=== PATIENT | male | born 1945 | race Caucasian/White ===

== ENCOUNTER 2016-09-23 14:52 | Inpatient (IN) ==
[2016-09-23] MEDS ORDERED: 0.9 % Sodium Chloride 500 ML IVC ONE (15:13)
--- NOTE | 2016-09-23 15:13 | Emergency Department Note ---
Disposition Clinical Impression: Pneumonia Disposition: Admitted As Inpatient Condition: Good Time of Disposition: 18:01 General Adult HPI - General Chief complaint: ED Fall Stated complaint: fall, dizziness Time Seen by Provider: 09/23/16 14:57 Nursing Notes Reviewed: Yes Vital Signs Reviewed: Yes - History of Present Illness HPI Narrative: Patient has a over 2 day history of diarrhea. He described it as a loose brown stool. The states that it is more foul-smelling than normal. He was on antibiotics in July for pneumonia. He stood up from a chair today and fell to the floor. He fell onto carpet. Did not strike anything when he fell. Did not loose consciousness. Patient has no complaints at this time. [facility] 0.22. - Related Data Home Medications Medication Instructions Recorded Confirmed Acetaminophen [Tylenol] 325 mg PO Q6HR PRN 09/23/16 09/23/16 Albuterol Sulfate [Albuterol 2 puff IH Q4H PRN 09/23/16 09/23/16 Inhaler] Atorvastatin Calcium [Lipitor] 20 mg PO HS 09/23/16 09/23/16 Budesonide/Formoterol 160/4.5 2 puff IH BIDR 09/23/16 09/23/16 [Symbicort 160/4.5] Cetirizine HCl [All Day Allergy] 10 mg PO HS 09/23/16 09/23/16 Docusate [Colace] 200 mg PO DAILY 09/23/16 09/23/16 Epoetin Nathanael [Epogen] 6,000 unit IJ QWEEK 09/23/16 09/23/16 Ferrous Sulfate 325 mg PO DAILY 09/23/16 09/23/16 Finasteride [Proscar] 5 mg PO DAILY 09/23/16 09/23/16 Fluticasone Propionate Nasal 50 mcg NS DAILY 09/23/16 09/23/16 [Flonase] GlipiZIDE [Glucotrol] 5 mg PO DAILY 09/23/16 09/23/16 GuaiFENesin/Dextromethorphan 10 ml PO Q4H PRN 09/23/16 09/23/16 [Robitussin/DM] Guaifenesin [Mucus Relief] 400 mg PO Q12H 09/23/16 09/23/16 Ipratropium/Albuterol Neb [Duoneb] 3 ml IH Q6H PRN 09/23/16 09/23/16 Magnesium Hydroxide [Milk of 1,200 mg PO DAILY PRN 09/23/16 09/23/16 Magnesia] Naproxen [Naprosyn] 500 mg PO BID 09/23/16 09/23/16 Saxagliptin HCl [Onglyza] 2.5 mg PO DAILY 09/23/16 09/23/16 Spironolactone [Aldactone] 12.5 mg PO DAILY 09/23/16 09/23/16 Trospium Chloride 20 mg PO BID 09/23/16 09/23/16 Allergies Allergy/AdvReac Type Severity Reaction Status Date / Time gabapentin Allergy See Verified 09/23/16 15:04 Comments mushroom Allergy See Verified 09/23/16 15:04 Comments pregabalin Allergy See Verified 09/23/16 15:04 Comments Review of Systems: Patient denies any fevers or chills. He denies any recent illnesses. He does report antibiotic use 1 month ago for pneumonia. He denies any shortness of breath or chest pain at this time. He denies any nausea or vomiting. He does report a two-day history of a loose brown stool. He denies any abdominal pain. Denies any neck or back pain. He denies any pain to his extremities. He states that he does feel weak still. He reports a decrease in his by mouth intake. Diarrhea. All systems ED: reviewed and negative except as stated. Physical Exam - General Limitations: no limitations General appearance: alert, in no apparent distress - Head Head exam: atraumatic, normocephalic, normal inspection - Eye Eye exam: Present: normal appearance, PERRL, EOMI. Absent: scleral icterus - ENT ENT exam: normal exam, normal oropharynx, mucous membranes moist - Neck Neck exam: Present: normal inspection, full ROM, trachea midline. Absent: tenderness, lymphadenopathy - Chest Chest inspection: Present: normal inspection, symmetric chest wall rise - Respiratory Respiratory exam: Present: respiratory distress (Patient states this is chronic for him), wheezes (Diffusely), accessory muscle use - Cardiovascular Cardiovascular exam: Present: regular rate, normal rhythm, normal heart sounds - Abdominal Exam Abdominal exam: Present: soft, Non-Tender, normal bowel sounds. Absent: tenderness, distention, guarding, rebound, rigidity, organomegaly, Fam's sign , tenderness at McBurney's Point - Extremities Exam Extremities exam: Present: normal inspection, full ROM, normal capillary refill. Absent: tenderness, pedal edema - Back Exam Back exam: Present: normal inspection, full ROM. Absent: tenderness, CVA tenderness (R), CVA tenderness (L) - Neurological Exam Neurological exam: Present: alert, oriented X3 - Psychiatric Psychiatric exam: Present: normal affect, normal mood - Skin Skin exam: Present: warm, dry, intact, normal color Course Course Narrative: Patient being sent to the emergency department from the [place] for an increased troponin and syncope. He has had diarrhea for approximately 3 days was sitting in a chair stood up and syncopized. He fell onto carpet. states that he was unresponsive for a very few seconds. He does have an abrasion to his left forehead. He denies any pain at this time. He denies any weakness or headaches. He does report a shortness of breath that is chronic for him. He also has a cough. His abdomen is soft and nontender on palpation. His bowel sounds are normal. He does wear oxygen all the time. He does wear BiPAP at home. We will order basic labs and a chest x-ray on the patient. [facility] - Reevaluation(s) Reevaluation #1: Patient resting in bed. Patient lungs sounds or wheezing bilaterally. He is having some mild shortness of breath. Chest x-ray correlates with patient's symptoms of pneumonia. We will start IV Zosyn and levofloxacin. Time: 15:48 Reevaluation #2: Prior sepsis guidelines patient is going to receive a 2 L fluid bolus. He received 500 mL of this at the [facility] he got 500 initially we will order an additional 1 L at this time. He does have CHF so we will stop after 2 L. Patient does have pneumonia. We will admit patient for IV antibiotics. Patient 's creatinine is increased as well. Time: 16:26 - Consultations Consultation #1: Randa Weaver MATERIALS CLERK accepted Pt in stable condition. Vital Signs Temperature 98.1 F 09/23/16 14:55 Pulse Rate 111 09/23/16 14:55 Respiratory Rate 18 09/23/16 14:55 Blood Pressure 135/87 09/23/16 14:55 O2 Sat by Pulse Oximetry 100 09/23/16 14:55 Temperature 98.1 F 09/23/16 14:55 Pulse Rate 96 09/23/16 17:22 Respiratory Rate 22 09/23/16 17:44 Blood Pressure 99/58 09/23/16 17:44 O2 Sat by Pulse Oximetry 94 L 09/23/16 17:22 Oxygen Delivery Oxygen Delivery Nasal Cannula Medical Decision Making - Medical Records Medical records reviewed: Yes I reviewed the patient's medical records. - Lab Data Result diagrams: 09/23/16 16:21 09/23/16 16:19 Lab Results 09/23/16 09/23/16 09/23/16 Range/Units 16:19 16:21 16:21 WBC 11.2 H (4.3-11.1) K/mcL RBC 2.93 L (4.19-5.50) M/mcL Hgb 8.0 L (12.9-16.9) g/dL Hct 27.3 L (37.5-50.1) % MCV 93.2 (83.0-100.0) fL MCH 27.3 L (28.0-33.3) pg MCHC 29.3 L (31.6-35.5) g/dL RDW 17.1 H (11.5-14.5) % Plt Count 172 (140-400) K/mcL MPV 10.7 (9.4-12.4) fL Seg Neutrophils % 42.0 % Band Neutrophils % 24.0 H (0-4) % Lymphocytes % 8.0 % Monocytes % 10.0 % Basophils % 4.0 % Metamyelocytes % 4.0 H (0) % Myelocytes % 8.0 H (0) % Neutrophils # 7.4 (1.6-8.9) K/mcL Lymphocytes # 0.9 (0.6-4.6) K/mcL Monocytes # 1.1 (0.0-1.3) K/mcL Basophils # 0.5 H (0.0-0.2) K/mcL Toxic Vacuolation Present A (Not Present) Platelet Estimate Normal (Normal) Immature Plt Fraction 6.1 (1.1-6.1) % Hypochromasia Present A (Not Present) Sodium 139 (136-145) mEq/L Potassium 4.8 H (3.5-4.5) mEq/L Chloride 103 (98-109) mEq/L Carbon Dioxide 27 (19-29) mEq/L BUN 23 (8-26) mg/dL Creatinine 1.65 H (0.72-1.25) mg/dL Est GFR ( Amer) 50 L (> 60) Est GFR (Non-Af Amer) 41 L (> 60) BUN/Creatinine Ratio 14 (6-26) Glucose 112 H (70-99) mg/dL Calculated Osmolality 292 (280-300) Lactic Acid 0.9 (0.5-2.2) mmol/L Calcium 8.7 (8.6-10.8) mg/dL Total Bilirubin 0.3 (0.2-1.2) mg/dL AST 12 (5-34) Units/L ALT 6 (0-55) Units/L Alkaline Phosphatase 75 (38-126) Units/L Serum Total Protein 7.1 (6.0-8.3) g/dL Albumin 2.5 L (3.5-5.0) g/dL Globulin 4.6 H (2.4-3.5) g/dL Albumin/Globulin Ratio 0.5 L (1.1-2.2) - Radiology Data Radiology results reviewed: Yes I reviewed the patient's radiology results. I reviewed the images as well as the radiologist's report. - EKG Data EKG #1 EKG attestation: Yes I reviewed and interpreted this EKG. EKG results narrative: Normal sinus rhythm at a rate of 98. MI interval is 144. QRS duration is 96. QT is 356. QTC is 411. No signs of acute ischemia. No previous EKG to compare to. Attestation Statement - Attestation Attestation: I examined this patient and my medical decision-making was reviewed with the TURNER MACHINE OPERATOR/PA/Advanced Practice Nurse/Resident Physician. I agree with the documented findings, disposition and treatment plan as described except to the extent set forth below. Patient to the emergency department as a transfer from the [facility]. Patient was seen after a fall today. Complaining ofpain. States has been weak and having diarrhea. No diarrhea today. On examination is awake and alert. It does not swelling to the bridge of his nose. Abrasion to the forehead. Lungs with diffuse expiratory wheezing. Moves all extremities. Plan. The patient elevated troponin. Possible infiltrate on chest x-ray. He has had a recent hospital admission. He is wheezing and coughing. We will cover for hospital-acquired pneumonia and admitted to medicine. C. difficile ordered as he has been on recent antibiotics however he has not produced a sample for us.
[2016-09-23] MEDS ORDERED: Ipratropium/Albuterol Neb 3 ML IH ONE (15:18)
[2016-09-23] MEDS ORDERED: Piperacillin/Tazobactam 4.5 GM in D5% in Water (Mini-Bag+) 100 ML IVPB ONE (15:46)
[2016-09-23] MEDS ORDERED: Levofloxacin 750 MG/150 ML 750 MG/150 ML BAG IVPB ONE (15:47)
[2016-09-23] MEDS ORDERED: 0.9 % Sodium Chloride 1,000 ML IVC ONE (16:24)
[2016-09-23 16:32] LABS: Red Cell Distribution Width 17.1 % (11.5-14.5)
[2016-09-23 16:35] LABS: Hematocrit 27.3 % (37.5-50.1); Immature Platelets 6.1 % (1.1-6.1); Mean Corpuscular HGB Conc 29.3 g/dL (31.6-35.5); Mean Corpuscular Hemoglobin 27.3 pg (28.0-33.3); Mean Corpuscular Volume 93.2 fL (83.0-100.0); Mean Platelet Volume 10.7 fL (9.4-12.4); Platelet Count 172 K/mcL (140-400); Red Blood Count 2.93 M/mcL (4.19-5.50)
[2016-09-23 16:47] LABS: Albumin 2.5 g/dL (3.5-5.0); Albumin/Globulin Ratio 0.5 (1.1-2.2); Bilirubin,Total 0.3 mg/dL (0.2-1.2); Calcium 8.7 mg/dL (8.6-10.8); Globulin 4.6 g/dL (2.4-3.5); Potassium 4.8 mEq/L (3.5-4.5); Total Protein 7.1 g/dL (6.0-8.3)
[2016-09-23 17:00] LABS: Basophils # 0.5 K/mcL (0.0-0.2); Hypochromasia Present (Not Present); Lymphocytes # 0.9 K/mcL (0.6-4.6); Monocytes # 1.1 K/mcL (0.0-1.3); Neutrophils # 7.4 K/mcL (1.6-8.9); Platelet Estimate Normal (Normal); Toxic Vacuolation Present (Not Present)
--- NOTE | 2016-09-23 21:02 | Internal Med History&Physical ---
Date of Encounter: 09/24/16 Time of Encounter: 20:55 Assessment and Plan (1) Syncope Current visit: Yes Status: Acute Patient presents after a syncopal event at home when standing from chair. He has an abrasion on his left forehead and bruising on arms. Etiology of syncopal event is unknown. This could be secondary to vasovagal response, hypotension. It could also be related to his elevated troponin and shortness of breath - possible PE. Will monitor vital signs and move forward with investigating his syncopal event. Qualifiers: Syncope type: unspecified Qualified Code(s): R55 - Syncope and collapse (2) Shortness of breath Current visit: Yes Status: Acute Patient with history of COPD on 4L home O2 and BiPAP at night. Patient reports that his shortness of breath has been getting worse - to the point he reports he is having to choose between eating and breathing. Do not believe that this is due to a pneumonia. Patient has chronic lung disease on CXR. He remains afebrile with very minimally elevated WBC. Will hold on antibiotics at this time. With patient's syncopal event, room air hypoxia, elevated troponins, HR> 90 and RR 20-22, there is concern for a possible PE. Due to patient's chronic lung history, he is unable to have a V/Q scan. Patient has an elevated creatinine, reportable a new development and as such cannot have a CTA chest tonight. Will start heparin drip and work towards optamizing patient medically for a CTA. 1. Start heparin drip 2. BL LE venous dopplar ultrasound. 3. Lab: CRP 4. Will order duoneb breathing treatments QIDR 5. Continuous pulse ox and supplemental oxygen as needed - he does use 4L at home 6. BiPAP at night. 7. Consult placed to pulmonology (3) Elevated troponin Current visit: Yes Status: Acute Patient with elevated troponin of 0.55. There are no old troponin labs in our system. He reports that he has never had a heart attack. He reports a stress test a long time ago but has never had a LHC. EKG showed normal sinus rhythm with non-specific T wave changes, no ST segment elevation. The differential for the elevated troponin includes PE and NSTEMI. Will trend troponins and place patient on a heparin drip. Patient may require stress test at a future date. 1. Trend troponins every 6 hours 2. Heparin drip. Monitor PT/PTT per protocol 3. Consult place to cardiology for further recommendations. 4. ECHO (4) JONAH (acute kidney injury) Current visit: Yes Status: Acute Patient denies any history of kidney disease. Creatinine 1.65 today. Will encourage PO fluids and trend kidney function. 1. Trend creatinine 2. PO fluids. 3. Avoid nephrotoxic drugs if possible. (5) Diarrhea Current visit: Yes Status: Acute Patient reports 3 days of diarrhea. He does reports a history of antibiotic use back in July. Initially a c.diff test was ordered however patient has been unable to produce a sample. Believe the c. diff is not likely. Patient was on medications to help with constipation, will hold medicaitons until resolution of diarrhea. Will monitor electrolytes and encourage PO fluid intake. Qualifiers: Diarrhea type: unspecified type Qualified Code(s): R19.7 - Diarrhea, unspecified (6) Hyperkalemia Current visit: Yes Status: Acute Patient with hypercalemia likely related to JONAH. He is not currently having any EKG changes. Will monitor potassium. 1. BMP tomorrow (7) Anemia Current visit: Yes Status: Acute Patient with hemoglobin of 8.0. He has a history of anemia and takes Epogen and Iron at home. 1. Trend hemoglobin 2. Consider iron studies, B12, and folate. Qualifiers: Anemia type: unspecified type Qualified Code(s): D64.9 - Anemia, unspecified (8) Type 2 diabetes mellitus Current visit: Yes Status: Acute Patient with history of T2DM on saxagliptin and glipizide at home. Glucose on admission was 112 1. Diabetic diet 2. Will continue home dose of saxagliptin and glipizide. 3. Will check glucose ACHS 4. Sliding scale insulin Qualifiers: Diabetes mellitus complication status: without complication Diabetes mellitus terminal worker insulin use: without terminal worker use Qualified Code(s): E11.9 - Type 2 diabetes mellitus without complications (9) CHF (congestive heart failure) Current visit: Yes Status: Acute Patient reports history of CHF. No documentation of a previous ECHO. With patient's elevated troponins, will obtain and new ECHO for evaluation. 1. ECHO 2. Monitor I/O 3. Daily weights. Qualifiers: Congestive heart failure type: unspecified congestive heart failure type Congestive heart failure chronicity: unspecified congestive heart failure chronicity Qualified Code(s): I50.9 - Heart failure, unspecified (10) COPD (chronic obstructive pulmonary disease) Current visit: Yes Status: Acute Patient with history of COPD, does not appear to be a current exacerbation. Patient does use 4L O2 during the day and BiPAP at night. 1. Continuous oxygenation saturation monitoring and supplemental O2 as needed. 2. Consult to respiratory therapy for BiPAP 3. Duonebs QIDR 4. Continue symbicort. Qualifiers: COPD type: unspecified COPD Qualified Code(s): J44.9 - Chronic obstructive pulmonary disease, unspecified (11) BPH (benign prostatic hyperplasia) Current visit: Yes Status: Acute Patient with history of BPH. He reports that he wears a condom cath at home. 1. Continue proscar Qualifiers: Prostatic enlargement morphology: unspecified morphology Lower urinary tract symptom presence: symptoms present Qualified Code(s): N40.1 - Benign prostatic hyperplasia with lower urinary tract symptoms (12) DVT prophylaxis Current visit: Yes Status: Acute Patient is currently on a heparin drip. Internal Medicine - H&P: HPI Chief complaint: Syncopal episode, SOB, diarrhea Admitted From: Home Plans for Post Hospital Care: Home History of present illness: Mr. Leiva is a 71 year old male with PMH of COPD on home O2, CHF, T2DM, anemia, CHF, and BPH who presents after a fall at home. Patient reports that today he stook up from a chair and "passed out." He states that he "blacked out for a little bit." He reports that he hit his head. Patient presented to the [facility] for evaluation with abrasion to his left forehead and multiple bruises. There he was found to have elevated trops and transferred to [facility] for futher evaluation. Patient reports that he has had fowl-smelling diarrhea for the past 2-3 days however none today. He reports that he was in the hospital back in July for pneumonia and had antibiotics at that time. He denies associated nausea/vomiting, abdominal pain or blood in his stool. Patient also reports shortness of breath. He has a history of COPD on 4L home O2 as well as BiPAP at night. He reports that his breathing has been getting worse. Patient states that he would be unable to walk to the bathroom door in his room with out shortness of breath and he has shortness of breath with conversation. He states that he has been eating less because he has to "choose between breathing and eating." CXR in the ED showed bibasilar interstitial lung disease with some asymmetry in the right lung base. Patient reports associated fever, chills , chronic nonproductive cough, and generalized weakness. He denies headache, vision changes, chest pain or pressures, abdominal pain. He denies any pain in his legs, any erythema or warmth. In our ED patient was afebrile with HR in the 90s, RR 20-22, and blood pressure around 100/60. He had an oxygenation saturation of 91% on 2L. Due to the elevated HR and RR, patient was given 2L fluids per protocol. He was given one duoneb treatment. ED was concerned that the asymmetry in the right lung base might be a pneumonia. Blood cultures drawn and he was given a dose of levaquin and zosyn. Patient has a WBC of 11.2, Hgb of 8.0. Hyperkalemia at 4.8. Troponin elevated at 0.55. On exam, patient awake and oriented, states he is frustrated and doesn't want to be here. He has an abrasion on his left forehead and bruising up and down BL arms. The bridge of his nose is slightly swollen. Pupils equal and reactive. Lungs with maybe fine wheezes on the right, some diminished air movement BL. Heart regular rate and rhythm. Abdomen soft, non-tender. No pedal edema noted. Past Med Surg Social Fam HX - Past Medical History Medical history: COPD, dementia, diabetes Psychiatric history: depression, PTSD - Social History Smoking Status: Never smoker Alcohol use: none Drug use: none - Family History Mother Hx Family Endocrine Disorder: Yes (daibetes) Father Hx Family Cardiac Disorders: Yes (heart attack) Internal Medicine - H&P: Meds Acetaminophen [Tylenol] 325 mg PO Q6HR PRN 09/23/16 [History] Albuterol Sulfate [Albuterol Inhaler] 2 puff IH Q4H PRN 09/23/16 [History] Atorvastatin Calcium [Lipitor] 20 mg PO HS 09/23/16 [History] Budesonide/Formoterol 160/4.5 [Symbicort 160/4.5] 2 puff IH BIDR 09/23/16 [ History] Cetirizine HCl [All Day Allergy] 10 mg PO HS 09/23/16 [History] Docusate [Colace] 200 mg PO DAILY 09/23/16 [History] Epoetin Nathanael [Epogen] 6,000 unit IJ QWEEK 09/23/16 [History] Ferrous Sulfate 325 mg PO DAILY 09/23/16 [History] Finasteride [Proscar] 5 mg PO DAILY 09/23/16 [History] Fluticasone Propionate Nasal [Flonase] 50 mcg NS DAILY 09/23/16 [History] GlipiZIDE [Glucotrol] 5 mg PO DAILY 09/23/16 [History] GuaiFENesin/Dextromethorphan [Robitussin/DM] 10 ml PO Q4H PRN 09/23/16 [History] Guaifenesin [Mucus Relief] 400 mg PO Q12H 09/23/16 [History] Ipratropium/Albuterol Neb [Duoneb] 3 ml IH Q6H PRN 09/23/16 [History] Magnesium Hydroxide [Milk of Magnesia] 1,200 mg PO DAILY PRN 09/23/16 [History] Naproxen [Naprosyn] 500 mg PO BID 09/23/16 [History] Saxagliptin HCl [Onglyza] 2.5 mg PO DAILY 09/23/16 [History] Spironolactone [Aldactone] 12.5 mg PO DAILY 09/23/16 [History] Trospium Chloride 20 mg PO BID 09/23/16 [History] Allergies gabapentin Allergy (Verified 09/23/16 15:04) See Comments mushroom Allergy (Verified 09/23/16 15:04) See Comments pregabalin Allergy (Verified 09/23/16 15:04) See Comments All Systems PM: A 10-system review of systems was performed and is negative for pertinent findings except as documented above in the HPI. - Constitutional Constitutional: chills, fever(s), weakness - EENT Eyes: no blurry vision, no change in vision Nose, mouth and throat: facial pain - Cardiovascular Cardiovascular ROS IM: dyspnea, dyspnea on exertion, syncope, no chest pain, no edema, no palpitations - Respiratory Respiratory: cough, dyspnea, dyspnea on exertion, wheezing, no hemoptysis, no chest congestion, no pain with cough - Gastrointestinal Gastrointestinal: abdominal pain, diarrhea, no constipation, no heartburn, no hematochezia, no melena, no nausea, no vomiting - Genitourinary Genitourinary ROS male: urinary hesitancy, urinary urgency, no dysuria - Integumentary Additional comments: abrasion over left forehead, bruising up and down arms - Neurological Neurological ROS: no confusion, no headache(s), no loss of vision - Constitutional Vitals: Temp Pulse Resp BP Pulse Ox 97.9 F 94 20 100/61 91 L 09/23/16 18:52 09/23/16 18:52 09/23/16 18:52 09/23/16 18:52 09/23/16 18:52 General appearance: Present: A&O X 3, no acute distress, answers questions appropriately - Head Head exam: Present: normal inspection, normocephalic Additional comments: abrasion over left forehead - Eye Eye exam: Present: EOMI, normal appearance, PERRL - ENT ENT exam: Present: mucous membranes moist - Respiratory Respiratory exam: Present: decreased breath sounds, wheezes. Absent: chest wall tenderness, prolonged expiratory phase, respiratory distress - Cardiovascular Cardiovascular exam: Present: RRR. Absent: clicks, gallop, rubs, systolic murmur - GI/Abdominal GI/Abdominal exam: Present: soft. Absent: guarding, rebound, rigid, tenderness - Extremities Exam Extremities exam: Absent: pedal edema Additional comments: bruising on BL arms - Neurological Exam Neurological exam: Present: alert, CN II-XII intact, oriented X3. Absent: no focal deficits - Skin Skin exam: Present: abrasion Internal Med - H&P Results - Labs CBC & Chem 7: 09/24/16 01:07 09/24/16 01:07
[2016-09-23] MEDS ORDERED: Acetaminophen 325 MG TABLET PO PRN (21:33)
[2016-09-23] MEDS ORDERED: Ondansetron ODT 4 MG TAB.RAPDIS SL PRN (21:33)
[2016-09-23] MEDS ORDERED: Naloxone 0.4 MG/ML INJ IVP PRN (21:33)
[2016-09-23] MEDS ORDERED: *HR* Heparin 5,000 UNIT/ML VIAL IVP ONE (21:50)
[2016-09-23] MEDS ORDERED: *HR* Heparin 5,000 UNIT/ML VIAL IVP PRN ×2 (21:50)
[2016-09-23] MEDS ORDERED: Heparin 25,000 UNIT/500 ML D5W 25,000 UNIT/500 ML MLS IVC SCH (22:00)
[2016-09-23] MEDS ORDERED: EPOETIN ALFA IJ SCH (22:00)
[2016-09-23] MEDS: Budesonide/Formoterol 160/4.5 MDI IH SCH (23:43)
[2016-09-23] MEDS ORDERED: D5% in Water 1,000 ML IV PRN (23:50)
[2016-09-23] MEDS ORDERED: Dextrose Gel 15 GM PO PRN ×2 (23:50)
[2016-09-23] MEDS ORDERED: *HR* Dextrose 50 % in Water (Syg) 50 ML SYRINGE IVP PRN (23:50)
[2016-09-24] MEDS ORDERED: Ipratropium/Albuterol Neb 3 ML IH SCH
[2016-09-24] MEDS: GuaiFENesin Liq 200 MG/10 ML UDC PO SCH ×3 (00:15→21:27)
[2016-09-24 02:06] LABS: Hematocrit 26.9 % (37.5-50.1); Hemoglobin 7.8 g/dL (12.9-16.9); Mean Corpuscular Hemoglobin 27.5 pg (28.0-33.3); Mean Corpuscular Volume 94.7 fL (83.0-100.0); Mean Platelet Volume 11.2 fL (9.4-12.4); Platelet Count 134 K/mcL (140-400); Red Blood Count 2.84 M/mcL (4.19-5.50); Red Cell Distribution Width 16.9 % (11.5-14.5)
[2016-09-24 02:08] LABS: INR 1.3; Prothrombin Time 14.1 Seconds (9.4-12.1)
[2016-09-24 02:11] LABS: Activated Partial Thrombo Time 28.5 Seconds (26.0-36.0)
[2016-09-24 02:14] LABS: Calcium 8.4 mg/dL (8.6-10.8); Chol/HDL Ratio 4.2 (0-4.9); Potassium 4.9 mEq/L (3.5-4.5)
[2016-09-24 02:30] LABS: Lymphocytes # 0.5 K/mcL (0.6-4.6); Monocytes # 0.2 K/mcL (0.0-1.3); Neutrophils # 4.4 K/mcL (1.6-8.9)
[2016-09-24 02:31] LABS: Hypochromasia Present (Not Present); Large Platelets Present (Not Present); Microcytosis Present (Not Present); Platelet Estimate Slight Decrease (Normal)
[2016-09-24 02:32] LABS: Polychromasia 1+ (Not Present)
[2016-09-24 02:37] LABS: Thyroid Stimulating Hormone 0.545 mcIU/mL (0.350-4.840)
[2016-09-24] MEDS: Ipratropium/Albuterol Neb 3 ML IH SCH ×4 (04:52→23:10)
[2016-09-24] MEDS ORDERED: Insulin LISPRO 300 UNITS/3 ML VIAL SQ SCH ×2 (07:30→21:00)
[2016-09-24] MEDS: Finasteride 5 MG TABLET PO SCH (08:47)
[2016-09-24] MEDS: Fluticasone Propionate Nasal 50 MCG/SPRAY BOTTLE NS SCH (08:48)
[2016-09-24] MEDS ORDERED: *HR* GlipiZIDE 5 MG TABLET PO SCH (09:00)
[2016-09-24] MEDS ORDERED: (Saxagliptin Hcl [Onglyza] 2.5 MG) PO SCH (09:00)
[2016-09-24] MEDS ORDERED: Spironolactone 25 MG TABLET PO SCH (09:00)
--- NOTE | 2016-09-24 09:14 | Internal Med Progress Note ---
Date of Encounter: 09/24/16 Time of Encounter: 08:50 - Assessment and plan (1) Syncope Current Visit: Yes Status: Acute Assessment and plan: Improving. No further episodes of dizziness or syncope. No abnormal rhythms on telemetry noted. Awaiting 2-D echo. Continue telemetry monitoring. We will follow results of 2-D echo. Qualifiers: Syncope type: vasovagal syncope Qualified Code(s): R55 - Syncope and collapse (2) Chronic respiratory failure with hypoxia Current Visit: Yes Status: Acute Assessment and plan: Continue O2 supplementation and BiPAP use at night. (3) JONAH (acute kidney injury) Current Visit: Yes Status: Acute Assessment and plan: Creatinine remained stable despite IV hydration. Given history of diabetes, patient may have chronic kidney disease. Will obtain records from [place]. (4) Anemia Current Visit: Yes Status: Acute Assessment and plan: Hemoglobin 7.8. May have chronic anemia. Will check iron, folic acid and vitamin B12 levels. Qualifiers: Anemia type: unspecified type Qualified Code(s): D64.9 - Anemia, unspecified (5) CHF (congestive heart failure) Current Visit: Yes Status: Chronic Assessment and plan: Will await 2-D echocardiogram results. Patient does not appear to be having acute exacerbation of CHF. Qualifiers: Congestive heart failure type: unspecified congestive heart failure type Congestive heart failure chronicity: unspecified congestive heart failure chronicity Qualified Code(s): I50.9 - Heart failure, unspecified (6) COPD (chronic obstructive pulmonary disease) Current Visit: Yes Status: Acute Assessment and plan: Chronic COPD. Continue nebulizer treatments. Continue O2 supplementation. Not in acute exacerbation at this time Qualifiers: COPD type: emphysema Emphysema type: panlobular Qualified Code(s): J43.1 - Panlobular emphysema (7) DVT prophylaxis Current Visit: Yes Status: Acute (8) Diarrhea Current Visit: Yes Status: Resolved Assessment and plan: This seems to have resolved for now. No further episodes of diarrhea since coming to the hospital. Qualifiers: Diarrhea type: unspecified type Qualified Code(s): R19.7 - Diarrhea, unspecified (9) Elevated troponin Current Visit: Yes Status: Acute Assessment and plan: Cardiology consulted. Troponins are trending down. Could be related to demand ischemia and hypoxia. (10) Hyperkalemia Current Visit: Yes Status: Acute (11) Shortness of breath Current Visit: Yes Status: Acute Assessment and plan: Bilateral lower extremity venous Doppler ordered. Patient is a poor candidate for a VQ scan or CT angiogram of the chest to rule out PE due to abnormal renal function and COPD. Currently on IV heparin drip. He venous Doppler is negative , will stop heparin. High risk for complications due to use of IV heparin drip. - Subjective Interval history: Patient is feeling better today. Shortness of breath is improving. Denies any dizziness. No chest pain. No difficulty passing urine. No dysuria. No hematuria. Denies diarrhea. - Constitutional Vitals: Temp Pulse Resp BP Pulse Ox 96.6 F L 63 20 105/64 99 09/24/16 08:01 09/24/16 08:01 09/24/16 08:01 09/24/16 08:01 09/24/16 08:01 General appearance: Present: A&O X 3, no acute distress, answers questions appropriately - Head Head exam: Present: normocephalic Additional comments: Ecchymosis noted on left maxillary region - Neck Neck exam general surgery: Present: supple, trachea midline. Absent: lymphadenopathy - Respiratory Respiratory exam: Present: decreased breath sounds (Bilaterally with diminished air entry), CTAB, prolonged expiratory phase. Absent: accessory muscle use, rales, rhonchi, wheezes - Cardiovascular Cardiovascular exam: Present: RRR, +S1, +S2. Absent: diastolic murmur, gallop, rubs, systolic murmur - GI/Abdominal GI/Abdominal exam: Present: normal bowel sounds, soft, no peritoneal signs. Absent: distended, tenderness - Extremities Exam Extremities exam: Present: warm, radial pulses palpable and symetrical. Absent : calf tenderness, cyanotic, pedal edema - Neurological Exam Neurological exam: Present: alert, oriented X3, no focal deficits, strengths equal and symetr throughout. Absent: facial droop, speech deficit - Skin Skin exam: Present: dry, intact Internal Medicine: Result - Labs CBC & Chem 7: 09/24/16 01:07 09/24/16 01:07 Labs: Short CBC 09/24/16 Range/Units 01:07 WBC 5.3 D (4.3-11.1) K/mcL Hgb 7.8 L (12.9-16.9) g/dL Hct 26.9 L (37.5-50.1) % Plt Count 134 L (140-400) K/mcL Neutrophils # 4.4 (1.6-8.9) K/mcL BMP 09/24/16 01:07 Sodium 141 Potassium 4.9 H Chloride 105 Carbon Dioxide 26 BUN 26 Creatinine 1.74 H Glucose 179 H Calcium 8.4 L Cardiac Enzymes 09/24/16 Range/Units 01:07 Troponin I 0.47 H* (0-0.03) ng/mL - ABG Interpretation ABG results: PT/INR, D-dimer PT 14.1 Seconds (9.4-12.1) H 09/24/16 01:07 Consult Discharge Plan - Plan Referrals: NO,PCP [Non-Partnered Physician] - - Attending Attestation This document has been at least partially created by [employer] recognition technology by Dr. Mas. Errors in grammar, wording or other phrases may exist. If errors are found after the documentation is signed, they will be addressed individually in the addendum section of this document when appropriate.
[2016-09-24] MEDS: Budesonide/Formoterol 160/4.5 MDI IH SCH ×2 (10:35→23:10)
[2016-09-24 11:12] LABS: Activated Partial Thrombo Time 32.3 Seconds (26.0-36.0)
--- NOTE | 2016-09-24 11:15 | Cardiology Consult Note ---
<Buddy Zacarias R - Last Filed: 09/24/16 11:53> Date of Encounter: 09/24/16 Time of Encounter: 11:15 Assessment and Plan (1) Syncope Current Visit: Yes Status: Resolved Patient presents after a syncopal event at home when standing from chair. He has an abrasion on his left forehead and bruising on arms. Syncopal event likely vasovagal in nature. BP has been marginal while inpt. Will stop BB, as he was not on this at home. Will order orthostatic vitals. Check echo to evaluate structure and function. On Aldactone at home and currently. Pt unsure why. Will stop given he has JONAH and BP is marginal. Qualifiers: Syncope type: vasovagal syncope Qualified Code(s): R55 - Syncope and collapse (2) Elevated troponin Current Visit: Yes Status: Acute Troponin 0.55, 0.47 in setting of syncope, chronic anemia, JONAH, possible PE being worked up. Suspect demand ischemia and not true ACS. Troponins downtrending. Will check echo to evaluate structure and function. Pt denies chest pain. Await echo results for further recommendations. If no significant findings on echo, then no further cardiac testing will be warranted. (3) Shortness of breath Current Visit: Yes Status: Acute Patient with history of COPD on 4L home O2 and BiPAP at night. Patient reports that his shortness of breath has been getting worse - to the point he reports he is having to choose between eating and breathing. Per primary team, concern for a possible PE. Due to patient's chronic lung history, he is unable to have a V/Q scan. Patient has an elevated creatinine, reportedly new, which is why chest CTA has not been done. Hospitalist started heparin drip and ordered BL LE venous dopplar ultrasound. Check echo to evaluate structure and function. CHF listed in medical hx, although pt denies this diagnosis. He is unable to tell me why he is on Aldactone. Euvolemic on exam and CXR with no pulmonary edema or pleural effusions. (4) JONAH (acute kidney injury) Current Visit: Yes Status: Acute Patient denies any history of kidney disease. Creatinine 1.65 on admission. 1.74 today. Management per primary team. Will stop Aldactone. (5) Anemia Current Visit: Yes Status: Acute Chronic anemia, on Epogen weekly at home. Management per primary team. Qualifiers: Anemia type: unspecified type Qualified Code(s): D64.9 - Anemia, unspecified (6) COPD (chronic obstructive pulmonary disease) Current Visit: Yes Status: Acute Patient with history of COPD on O2--4L O2 during the day and BiPAP at night. Management per primary team. Qualifiers: COPD type: emphysema Emphysema type: panlobular Qualified Code(s): J43.1 - Panlobular emphysema Discussion w patient/family: The assessment and plan as outlined above was discussed with the patient and/or family members who expressed understanding and agreement. All questions were answered. Thank you for involving us in the care of your patient. Please call with any questions. History of Present Illness Consult date: 09/24/16 Requesting physician: Balbina Mas Consult reason: syncope, troponin elevation Chief complaint: syncope History of present illness: Mr. Leiva is a 71 year old male with PMH of COPD on home O2, CHF, T2DM, anemia, and BPH who presents after a fall at home. Patient reports that yesterday he stook up from bed and "passed out." He states that he "blacked out for a little bit." He reports that he hit his head. [facility] to his left forehead and multiple bruises. There he was found to have elevated troponin of 0.22 and was transferred to [facility] for futher evaluation. He reports shortness of breath, a little worse from baseline. COPD on 4L home O2 as well as BiPAP at night. He states that he has been eating less because he has to "choose between breathing and eating." CXR in the ED showed bibasilar interstitial lung disease with some asymmetry in the right lung base. Patient reports associated fever, chills, chronic nonproductive cough, and generalized weakness. He denies headache, vision changes, chest pain or pressures, abdominal pain. Denies chest pain. Troponins 0.55, 0.47. HGB 7.8--chronic anemia. Found to have JONAH as well. Past Med Surg Social Fam HX - Past Medical History Medical history: COPD, dementia, diabetes Psychiatric history: depression, PTSD - Social History Smoking Status: Never smoker Alcohol use: none Drug use: none - Family History Mother Hx Family Endocrine Disorder: Yes (bety) Father Hx Family Cardiac Disorders: Yes (heart attack) Medications and Allergies Acetaminophen [Tylenol] 325 mg PO Q6HR PRN 09/23/16 [History] Albuterol Sulfate [Albuterol Inhaler] 2 puff IH Q4H PRN 09/23/16 [History] Atorvastatin Calcium [Lipitor] 20 mg PO HS 09/23/16 [History] Budesonide/Formoterol 160/4.5 [Symbicort 160/4.5] 2 puff IH BIDR 09/23/16 [ History] Cetirizine HCl [All Day Allergy] 10 mg PO HS 09/23/16 [History] Docusate [Colace] 200 mg PO DAILY 09/23/16 [History] Epoetin Nathanael [Epogen] 6,000 unit IJ QWEEK 09/23/16 [History] Ferrous Sulfate 325 mg PO DAILY 09/23/16 [History] Finasteride [Proscar] 5 mg PO DAILY 09/23/16 [History] Fluticasone Propionate Nasal [Flonase] 50 mcg NS DAILY 09/23/16 [History] GlipiZIDE [Glucotrol] 5 mg PO DAILY 09/23/16 [History] GuaiFENesin/Dextromethorphan [Robitussin/DM] 10 ml PO Q4H PRN 09/23/16 [History] Guaifenesin [Mucus Relief] 400 mg PO Q12H 09/23/16 [History] Ipratropium/Albuterol Neb [Duoneb] 3 ml IH Q6H PRN 09/23/16 [History] Magnesium Hydroxide [Milk of Magnesia] 1,200 mg PO DAILY PRN 09/23/16 [History] Naproxen [Naprosyn] 500 mg PO BID 09/23/16 [History] Saxagliptin HCl [Onglyza] 2.5 mg PO DAILY 09/23/16 [History] Spironolactone [Aldactone] 12.5 mg PO DAILY 09/23/16 [History] Trospium Chloride 20 mg PO BID 09/23/16 [History] Allergies gabapentin Allergy (Verified 09/23/16 15:04) See Comments mushroom Allergy (Verified 09/23/16 15:04) See Comments pregabalin Allergy (Verified 09/23/16 15:04) See Comments All Systems Review: A 10-system review of systems was performed and is negative for pertinent findings except as documented above in the HPI. - Constitutional Constitutional: weakness - Cardiovascular Cardiovascular: as per HPI, dyspnea at rest, dyspnea on exertion, syncope - Respiratory Respiratory: cough, dyspnea Physical Examination Vital Signs, Last 4 Hours Temp Pulse Resp BP Pulse Ox 09/24/16 09:15 99 09/24/16 08:01 96.6 F L 63 20 105/64 99 Vital Signs Temp Pulse Resp BP Pulse Ox 09/24/16 11:16 97.6 F 74 20 102/65 99 09/24/16 09:15 99 09/24/16 08:01 96.6 F L 63 20 105/64 99 09/24/16 04:52 14 98 09/24/16 04:41 99 09/24/16 03:32 97.3 F L 60 22 98/54 99 09/23/16 23:50 18 95 09/23/16 23:43 97.3 F L 87 20 114/69 93 L 09/23/16 18:52 97.9 F 94 20 100/61 91 L 09/23/16 17:44 22 99/58 09/23/16 17:22 96 22 99/58 94 L 09/23/16 16:30 96 20 135/87 100 09/23/16 16:29 100 09/23/16 15:46 18 99 09/23/16 15:06 99 09/23/16 14:55 98.1 F 111 18 135/87 100 Intake and Output 09/23/16 09/24/16 09/24/16 23:59 07:59 15:59 Intake Total 500 / 500 0 / 0 100 / 100 Output Total 475 / 475 0 / 0 0 / 0 Balance 25 / 25 0 / 0 100 / 100 Intake: IV Fluids 500 / 500 100 / 100 0.9 % Sodium Chloride 500 500 / 500 ML @ 3750 mls/hr IVC . Q8M [facility] Rx#:[id number] Heparin 25,000 UNIT/500 100 / 100 ML D5W 25,000 unit In 500 ml @ 14 UNIT/KG/HR 19. 628 mls/hr IVC .Q24H [facility] Rx#:[id number] Oral 0 / 0 0 / 0 Output: Urine 475 / 475 0 / 0 0 / 0 Other: Weight 70.1 kg 69.3 kg Blood Glucose* 169 175 Patient Weight 09/24/16 23:59 Weight 69.3 kg General: Conversant, No Apparent Distress HEENT: Atraumatic, Normocephaly, Mucus Membranes Moist Neck: No JVD, Normal carotid pulses Cardiac: Reg Rate and Rhythm, Normal S1 and S2, No Murmur Lungs: Other (diminished) Neuro: Alert and responsive, No focal deficits noted Abdomen: Soft, Non-Tender Skin: No rashes noted on visualized skin Musculoskeletal: No Chest Wall Tenderness Extremities: No Clubbing, No Cyanosis, No Edema, Normal Pulses Results 09/24/16 01:07 09/24/16 01:07 Lab Results 09/24/16 09/24/16 09/24/16 01:07 01:07 01:07 WBC 5.3 D Hgb 7.8 L Hct 26.9 L Plt Count 134 L INR 1.3 APTT 28.5 D-Dimer Sodium Potassium Chloride Carbon Dioxide BUN Creatinine Glucose Calcium Troponin I 0.47 H* TSH 09/24/16 09/24/16 09/24/16 01:07 08:55 10:24 WBC Hgb Hct Plt Count INR APTT 32.3 D-Dimer 1016 H Sodium 141 Potassium 4.9 H Chloride 105 Carbon Dioxide 26 BUN 26 Creatinine 1.74 H Glucose 179 H Calcium 8.4 L Troponin I 0.28 H* TSH 0.545 Short CBC 09/24/16 09/23/16 Range/Units 01:07 16:21 WBC 5.3 D 11.2 H (4.3-11.1) K/mcL Hgb 7.8 L 8.0 L (12.9-16.9) g/dL Hct 26.9 L 27.3 L (37.5-50.1) % Plt Count 134 L 172 (140-400) K/mcL Neutrophils # 4.4 7.4 (1.6-8.9) K/mcL BMP 09/24/16 09/23/16 Range/Units 01:07 16:19 Sodium 141 139 (136-145) mEq/L Potassium 4.9 H 4.8 H (3.5-4.5) mEq/L Chloride 105 103 (98-109) mEq/L Carbon Dioxide 26 27 (19-29) mEq/L BUN 26 23 (8-26) mg/dL Creatinine 1.74 H 1.65 H (0.72-1.25) mg/dL Glucose 179 H 112 H (70-99) mg/dL Calcium 8.4 L 8.7 (8.6-10.8) mg/dL Cardiac Enzymes 09/24/16 09/24/16 09/23/16 Range/Units 08:55 01:07 16:19 Troponin I 0.28 H* 0.47 H* 0.55 H* (0-0.03) ng/mL Liver Function 09/23/16 Range/Units 16:19 Total Bilirubin 0.3 (0.2-1.2) mg/dL AST 12 (5-34) Units/L ALT 6 (0-55) Units/L Alkaline Phosphatase 75 (38-126) Units/L Albumin 2.5 L (3.5-5.0) g/dL Impressions Chest X-Ray 09/23/16 15:13 IMPRESSION: 1. Bibasilar interstitial prominence which may be related to underlying interstitial lung disease, asymmetric in the right lung base. A superimposed pneumonia cannot be excluded. Follow-up radiographs are recommended. 2. Emphysema. D/ / 09/23/2016 15:43:59 Kirby Tavera MD / dylan Interpreting Provider: Kirby Tavera MD Active Medications Acetaminophen (Tylenol) 650 mg PO Q6HR PRN PRN Reason: Mild Pain (1-3) Stop: 03/25/17 21:34 Albuterol/Ipratropium (Duoneb) 3 ml IH QIDR [facility] PRN Reason: Protocol Stop: 03/26/17 05:01 Last Admin: 09/24/16 10:35 Dose: 3 ml Budesonide/Formoterol Fumarate (Symbicort) 2 puff IH BIDRESP [facility] PRN Reason: Protocol Stop: 03/25/17 22:01 Last Admin: 09/24/16 10:35 Dose: 2 puff Dextrose/Water (Dextrose 50% (Syg)) 25 ml IVP AD PRN PRN Reason: Hypoglycemia Stop: 03/25/17 23:51 Ferrous Sulfate (Ferrous Sulfate) 325 mg PO DAILY [facility] Stop: 03/26/17 09:01 Last Admin: 09/24/16 08:48 Dose: 325 mg Finasteride (Proscar) 5 mg PO DAILY [facility] PRN Reason: Protocol Stop: 03/26/17 09:01 Last Admin: 09/24/16 08:47 Dose: 5 mg Fluticasone Propionate (Flonase) 50 mcg NS DAILY [facility] PRN Reason: Protocol Stop: 03/26/17 09:01 Last Admin: 09/24/16 08:48 Dose: 50 mcg Glipizide (Glucotrol) 5 mg PO DAILY [facility] Stop: 03/26/17 09:01 Last Admin: 09/24/16 08:47 Dose: Not Given Glucagon (Glucagen) 1 mg IM ONCE PRN PRN Reason: Hypoglycemia Stop: 03/25/17 23:51 Glucose (Gluctose) 15 gm PO ONCE PRN PRN Reason: Hypoglycemia Stop: 03/25/17 23:51 Glucose (Gluctose) 30 gm PO ONCE PRN PRN Reason: Hypoglycemia Stop: 03/25/17 23:51 Guaifenesin (Robitussin Liq) 400 mg PO Q12H [facility] Stop: 03/25/17 22:01 Last Admin: 09/24/16 08:48 Dose: 400 mg Heparin Sodium (Porcine) (Heparin) 4,900 unit 70 unit/kg (4900 unit) IVP Q6HR PRN PRN Reason: SEE COMMENTS Stop: 03/25/17 21:51 Last Admin: 09/24/16 11:19 Dose: 4,900 unit Heparin Sodium (Porcine) (Heparin) 2,500 unit 35 unit/kg (2500 unit) IVP Q6H PRN PRN Reason: SEE COMMENTS Stop: 03/25/17 21:51 Heparin Sodium/Dextrose (Heparin 25,000 Unit/500 Ml D5w) 25,000 unit in 500 mls @ 19.628 mls/hr IVC .Q24H VALDEZ; 14 UNIT/KG/HR PRN Reason: Protocol Stop: 03/25/17 22:01 Last Titration: 09/24/16 11:12 Dose: 17.83 unit/kg/hr, 25 mls/hr Dextrose (Dextrose 5%) 1,000 mls @ 100 mls/hr IV CONT PRN PRN Reason: HYPOGLYCEMIA Stop: 03/25/17 23:51 Insulin Human Lispro (Humalog) 0 units SQ HS [facility] PRN Reason: Protocol Stop: 03/26/17 21:01 Insulin Human Lispro (Humalog) 0 units SQ TIDAC [facility] PRN Reason: Protocol Stop: 03/26/17 07:31 Loratadine (Claritin) 10 mg PO HS [facility] Stop: 03/26/17 21:01 Metoprolol Tartrate (Lopressor) 12.5 mg PO BID [facility] Stop: 03/25/17 23:46 Last Admin: 09/24/16 08:48 Dose: Not Given Naloxone HCl (Narcan) 0.4 mg IVP Q2MIN PRN PRN Reason: Opioid Reversal Stop: 03/25/17 21:34 Ondansetron HCl (Zofran Odt) 4 mg SL Q8HR PRN PRN Reason: Nausea And Vomiting Stop: 03/25/17 21:34 Oxybutynin Chloride (Ditropan) 5 mg PO TID [facility] Stop: 03/26/17 09:01 Last Admin: 09/24/16 08:48 Dose: 5 mg Pharmacy Profile Note (Patient Taking Own Medication) 0 each PO DAILY [facility] Stop: 03/26/17 09:01 Last Admin: 09/24/16 08:48 Dose: Not Given Simvastatin (Zocor) 40 mg PO HS [facility] Stop: 03/26/17 21:01 Spironolactone (Aldactone) 12.5 mg PO DAILY [facility] Stop: 03/26/17 09:01 Last Admin: 09/24/16 08:48 Dose: 12.5 mg - Imaging and Cardiology Chest Xray: report reviewed - EKG Interpretation EKG results cardiology: personally reviewed (SR with PVCs), other (24 hour tele AVG HR 71, SR, no significant pauses or arrhythmias) Consult Discharge Plan - Plan [facility]errals: [facility]Primary Care Provider[facility] - 10/07/16 2:30 pm (Please follow up as schedule with your [facility]...) <Negar Kimball - Last Filed: 09/24/16 14:28> Date of Encounter: 09/24/16 Assessment and Plan Discussion w patient/family: The assessment and plan as outlined above was discussed with the patient and/or family members who expressed understanding and agreement. All questions were answered. Thank you for involving us in the care of your patient. Please call with any questions. History of Present Illness History of present illness: Mr. Leiva is a 71 year old male All Systems Review: A 10-system review of systems was performed and is negative for pertinent findings except as documented above in the HPI. Physical Examination Vital Signs, Last 4 Hours Temp Pulse Resp BP BP BP BP 09/24/16 11:20 94/59 102/65 92/54 09/24/16 11:16 97.6 F 74 20 102/65 Pulse Ox 09/24/16 11:20 09/24/16 11:16 99 Results 09/24/16 01:07 09/24/16 01:07 Lab Results 09/24/16 09/24/16 09/24/16 01:07 01:07 01:07 WBC 5.3 D Hgb 7.8 L Hct 26.9 L Plt Count 134 L INR 1.3 APTT 28.5 D-Dimer Sodium Potassium Chloride Carbon Dioxide BUN Creatinine Glucose Calcium Troponin I 0.47 H* B-Natriuretic Peptide TSH 09/24/16 09/24/16 09/24/16 01:07 08:55 10:24 WBC Hgb Hct Plt Count INR APTT 32.3 D-Dimer 1016 H Sodium 141 Potassium 4.9 H Chloride 105 Carbon Dioxide 26 BUN 26 Creatinine 1.74 H Glucose 179 H Calcium 8.4 L Troponin I 0.28 H* B-Natriuretic Peptide TSH 0.545 09/24/16 11:30 WBC Hgb Hct Plt Count INR APTT D-Dimer Sodium Potassium Chloride Carbon Dioxide BUN Creatinine Glucose Calcium Troponin I B-Natriuretic Peptide 489 H TSH - Attending Attestation I examined this patient and my medical decision-making was reviewed with the [employer]ER/PA/Advanced Practice Nurse/Resident Physician. I agree with the documented findings, disposition and treatment plan. Mr. Leiva presents with a syncopal episode after rising from bed. Symptoms may be consistent with orthostasis possibly from medications and anemia. We have stopped his aldactone and beta claudia. We have not seen any concerning telemetry findings. Troponin elevation may be secondary to syncopal event. There are no concerning ECG findings. Patient denies chest pain or palpitations. We are awaiting an echo for review of structure/function.
[2016-09-24] MEDS: Insulin LISPRO 300 UNITS/3 ML VIAL SQ SCH ×3 (11:38→21:23)
[2016-09-24] MEDS ORDERED: 0.9 % Sodium Chloride 1,000 ML IVC SCH (11:45)
[2016-09-24 12:54] LABS: Bilirubin,Urine Negative (Negative); Blood,Urine Negative (Negative); Clarity,Urine Clear (Clear); Color,Urine Yellow (Yellow); Glucose,Urine (UA) Normal (Normal); Hyaline Casts,Urine None Seen per lpf (None-Few); Ketones,Urine Negative (Negative); Leukocyte Esterase,Urine Negative (Negative); Nitrite,Urine Negative (Negative); PH,Urine 5.5 pH Units (5.0-8.0); Protein,Urine 30 mg/dL (Neg-Trace); Specific Gravity,Urine 1.024 (1.010-1.025); Squamous Epithelial Cell,Urine Many per lpf (None-Few); Urobilinogen,Urine Normal (Normal); WBC,Urine 0-3 per hpf (0-3)
[2016-09-24 13:02] LABS: Amorphous Sediment,Urine Few (Few); Granular Casts,Urine Few per lpf (None Seen); Mucus,Urine Moderate (Few)
[2016-09-24 13:03] LABS: Bacteria,Urine Few per hpf (None-Few)
--- NOTE | 2016-09-24 17:19 | Electrocardiograph Report ---
[place] [id number] Test Date: 2016-09-23 Pat Name: Jg Leiva Department: 104 Room: 2A22 Gender: M Employee Training Specialist: : [id number] Requested By: Balbina Mas Order Number: [id number] Reading MD: Negar Kimball Measurements Intervals [place] Rate: 98 P: 69 [place]: 144 QRS: 57 QRSD: 96 T: -32 QT: 356 QTc: 411 Interpretive Statements SINUS RHYTHM WITH VENTRICULAR PREMATURE COMPLEX NONSPECIFIC T-WAVE ABNORMALITY Electronically Signed On 09-24-2016 17:17:30 EST by Negar Kimball
--- NOTE | 2016-09-24 17:37 | Pulmonology Consult Note ---
Date of Encounter: 09/24/16 Time of Encounter: 12:00 Assessment and Plan (1) Acute and chronic respiratory failure with hypoxia Current Visit: Yes Status: Acute I have explained to the patient this is most likely progressive of his underlying COPD and he understand that. Other possibilities with healthcare associated pneumonia and I feel pulmonary embolism is less likely based on his low levels well's criteria. I would still recommend CT chest with noncontrast for better visualization of his lung parenchyma and also check BNP level and agree with venous Dopplers of lower extremities since CTA is risky due to his acute kidney injury patient is on heparin drip. (2) COPD (chronic obstructive pulmonary disease) Current Visit: Yes Status: Chronic Spirometry to be done to check his FEV1. I do not feel strongly patient has COPD exacerbation, however pneumonia and patient has abnormal chest x-ray as well as CAT scan. Current antibiotics acceptable and follow-up cultures and sensitivity Qualifiers: COPD type: emphysema Emphysema type: panlobular Qualified Code(s): J43.1 - Panlobular emphysema (3) Pneumonia Current Visit: Yes Status: Acute Continue current antibiotics and if he does not respond then and needs to be broadened. Check strep pneumo and legionella. Qualifiers: Pneumonia type: due to unspecified organism Laterality: right Lung location: unspecified part of lung Qualified Code(s): J18.9 - Pneumonia, unspecified organism History of Present Illness Consult date: 09/24/16 Requesting physician: Balbina Mas Reason for consult: dyspnea, COPD Chief complaint: Dyspnea and syncope History of present illness: This is very pleasant 71-year-old male with significant history of COPD on home oxygen, it is unknown his FEV1 and he has been feeling more short of breath mainly during Exertion and even when he eats. Patient has syncope and pulmonary consulted for an evaluation. Patient has multiple other medical problems. Patient presented to the [facility] for evaluation and abrasion on his left forehead and then he was transferred to [facility] for further workup when he was found to have elevated troponin. Patient is also on inhalers, but he does not remember. Overall patient is a poor historian. He denies any history of obstructive sleep apnea. He does have productive cough with wheezing, but denies any hemoptysis. He denies any night sweats or history of TB. Past Med Surg Social Fam HX - Past Medical History Medical history: COPD, dementia, diabetes Psychiatric history: depression, PTSD - Social History Smoking Status: Never smoker Alcohol use: none Drug use: none - Family History Mother Hx Family Endocrine Disorder: Yes (daibetes) Father Hx Family Cardiac Disorders: Yes (heart attack) Medications and Allergies Acetaminophen [Tylenol] 325 mg PO Q6HR PRN 09/23/16 [History] Albuterol Sulfate [Albuterol Inhaler] 2 puff IH Q4H PRN 09/23/16 [History] Atorvastatin Calcium [Lipitor] 20 mg PO HS 09/23/16 [History] Budesonide/Formoterol 160/4.5 [Symbicort 160/4.5] 2 puff IH BIDR 09/23/16 [ History] Cetirizine HCl [All Day Allergy] 10 mg PO HS 09/23/16 [History] Docusate [Colace] 200 mg PO DAILY 09/23/16 [History] Epoetin Nathanael [Epogen] 6,000 unit IJ QWEEK 09/23/16 [History] Ferrous Sulfate 325 mg PO DAILY 09/23/16 [History] Finasteride [Proscar] 5 mg PO DAILY 09/23/16 [History] Fluticasone Propionate Nasal [Flonase] 50 mcg NS DAILY 09/23/16 [History] GlipiZIDE [Glucotrol] 5 mg PO DAILY 09/23/16 [History] GuaiFENesin/Dextromethorphan [Robitussin/DM] 10 ml PO Q4H PRN 09/23/16 [History] Guaifenesin [Mucus Relief] 400 mg PO Q12H 09/23/16 [History] Ipratropium/Albuterol Neb [Duoneb] 3 ml IH Q6H PRN 09/23/16 [History] Magnesium Hydroxide [Milk of Magnesia] 1,200 mg PO DAILY PRN 09/23/16 [History] Naproxen [Naprosyn] 500 mg PO BID 09/23/16 [History] Saxagliptin HCl [Onglyza] 2.5 mg PO DAILY 09/23/16 [History] Spironolactone [Aldactone] 12.5 mg PO DAILY 09/23/16 [History] Trospium Chloride 20 mg PO BID 09/23/16 [History] Allergies gabapentin Allergy (Verified 09/23/16 15:04) See Comments mushroom Allergy (Verified 09/23/16 15:04) See Comments pregabalin Allergy (Verified 09/23/16 15:04) See Comments All Systems: A 10-system review of systems was performed and is negative for pertinent findings except as documented above in the HPI. Physical Examination Vital Signs: Vital Signs, Last 4 Hours Temp Pulse Resp BP Pulse Ox 09/24/16 17:12 98.6 F 77 18 114/72 97 General appearance: no acute distress Eyes: nonicteric ENT: oropharynx dry, other (Abrasion on the left side of the forehead) Mallampati (class): 1 Neck: supple, no lymphadenopathy Effort: mildly labored Inspection: hyperextended Auscultation: bilateral: diminished breath sounds Percussion: bilateral: not dull Cardiovascular: regular rate and rhythm Gastrointestinal: normoactive bowel sounds, soft Extremities: no cyanosis normal mental status, non-focal exam mood appropriate Results - Laboratory Findings CBC and BMP: 09/24/16 01:07 09/24/16 01:07 PT/INR, D-dimer PT 14.1 Seconds (9.4-12.1) H 09/24/16 01:07 D-Dimer 1016 ng/mLFEU (0-500) H 09/24/16 10:24 Abnormal lab findings: Abnormal lab results RBC 2.84 M/mcL (4.19-5.50) L 09/24/16 01:07 Hgb 7.8 g/dL (12.9-16.9) L 09/24/16 01:07 Hct 26.9 % (37.5-50.1) L 09/24/16 01:07 MCH 27.5 pg (28.0-33.3) L 09/24/16 01:07 MCHC 29.0 g/dL (31.6-35.5) L 09/24/16 01:07 RDW 16.9 % (11.5-14.5) H 09/24/16 01:07 Plt Count 134 K/mcL (140-400) L 09/24/16 01:07 Band Neutrophils % 16.0 % (0-4) H 09/24/16 01:07 Metamyelocytes % 4.0 % (0) H 09/23/16 16:21 Myelocytes % 4.0 % (0) H 09/24/16 01:07 Lymphocytes # 0.5 K/mcL (0.6-4.6) L 09/24/16 01:07 Basophils # 0.5 K/mcL (0.0-0.2) H 09/23/16 16:21 Toxic Vacuolation Present (Not Present) A 09/23/16 16:21 Platelet Estimate Slight Decrease (Normal) L 09/24/16 01:07 Large Platelets Present (Not Present) A 09/24/16 01:07 Polychromasia 1+ (Not Present) A 09/24/16 01:07 Hypochromasia Present (Not Present) A 09/24/16 01:07 Microcytosis Present (Not Present) A 09/24/16 01:07 PT 14.1 Seconds (9.4-12.1) H 09/24/16 01:07 D-Dimer 1016 ng/mLFEU (0-500) H 09/24/16 10:24 Potassium 4.9 mEq/L (3.5-4.5) H 09/24/16 01:07 Creatinine 1.74 mg/dL (0.72-1.25) H 09/24/16 01:07 Est GFR ( Amer) 47 (> 60) L 09/24/16 01:07 Est GFR (Non-Af Amer) 39 (> 60) L 09/24/16 01:07 Glucose 179 mg/dL (70-99) H 09/24/16 01:07 POC Glucose 166 (58-89) H 09/24/16 11:37 Calculated Osmolality 301 (280-300) H 09/24/16 01:07 Calcium 8.4 mg/dL (8.6-10.8) L 09/24/16 01:07 Troponin I 0.28 ng/mL (0-0.03) H* 09/24/16 08:55 C-Reactive Protein 229 mg/L (Less than 5) H 09/24/16 01:07 B-Natriuretic Peptide 489 pg/mL (0-100) H 09/24/16 11:30 Albumin 2.5 g/dL (3.5-5.0) L 09/23/16 16:19 Globulin 4.6 g/dL (2.4-3.5) H 09/23/16 16:19 Albumin/Globulin Ratio 0.5 (1.1-2.2) L 09/23/16 16:19 HDL Cholesterol 32 mg/dL (40-59) L 09/24/16 01:07 Urine Protein 30 mg/dL (Neg-Trace) H 09/24/16 11:25 Urine Microscopic RBC 3-5 per hpf (0-3) H 09/24/16 11:25 Ur Squamous Epith Cells Many per lpf (None-Few) H 09/24/16 11:25 Granular Casts Few per lpf (None Seen) H 09/24/16 11:25 Urine Mucus Moderate (Few) H 09/24/16 11:25 - Diagnostic Findings Chest x-ray: report reviewed, image reviewed CT scan - chest: report reviewed, image reviewed - Clinical Findings Intake & Output: Intake & Output 09/24/16 09/24/16 09/24/16 07:59 15:59 23:59 Intake Total 0 / 0 100 / 100 Output Total 0 / 0 300 / 300 Balance 0 / 0 -200 / -200 Weight 69.3 kg Consult Discharge Plan - Plan Referrals: [place],PCP [Primary Care Provider] - 10/07/16 2:30 pm (Please follow up as schedule [facility]...)
--- NOTE | 2016-09-24 19:19 | ECHO - Doppler Report ---
Echocardiogram Name: Jg Leiva Date of Study: 09/24/2016 Date: 1945 Ht: 63.0 in Medical Record#: [id number] Age: 71 Wt: 152.0 lb Gender: Male BSA: 1.72 Order #: [id number] Location: [facility] Room #: [id number] Reading Physician: Timbo Bray DO, FAUSTO, MARGE JORDAN Environmental Compliance Officer: Caryl Hernandez Ordering Physician: Irena Aldana DO Primary Physician: [facility] Indications: Congestive heart failure, New elevated troponin Impressions: LVEF 55-60%. Normal LV chamber size, wall thickness and function. Atypical septal motion of unclear etiology. Mild left ventricular diastolic dysfunction. Moderately dilated right ventricle with normal appearing function. Moderate biatrial enlargement. Mild-moderate mitral regurgitation. Mild-moderate tricuspid regurgitation. Severe pulmonary hypertension. Estimated RVSP is 84 mmHg. Left Ventricular Wall Motion: Rest Echo Findings All wall segments showed normal motion. Findings: Study Quality * Technically adequate exam. ECG Findings * Normal sinus rhythm. Left Ventricle * LVEF 55-60%. * Normal LV chamber size, wall thickness and function. * Atypical septal motion of unclear etiology. * Mild left ventricular diastolic dysfunction. Right Ventricle * Moderately dilated right ventricle with normal appearing function. Left Atrium * Moderately dilated left atrium. Right Atrium * Moderately dilated right atrium. Interatrial Septum * No evidence of PFO by color Doppler. Aortic Valve * Trileaflet aortic valve. * Mildly sclerotic aortic valve leaflets. * Trace aortic regurgitation. * No aortic stenosis. Mitral Valve * Mildly thickened mitral valve leaflets. * Mild-moderate mitral regurgitation. * No mitral stenosis. Tricuspid Valve * Normal tricuspid valve structure. * Mild-moderate tricuspid regurgitation. * Severe pulmonary hypertension. * Estimated RVSP is 84 mmHg. * Estimated RA pressure is 5 mmHg. Pulmonic Valve * Pulmonic valve not well visualized. * No pulmonic regurgitation. Aorta * Normally sized aortic root. Pericardium * The pericardium appears normal. IVC * Normal IVC dimensions and inspiratory collapse. Pulmonary Artery * Normal visualized portions of the main pulmonary artery. History Diabetes Years 59 Packs 2 Family History of CAD Congestive Heart Failure Measurements: BP: 102/ 65 2D Normal Values RVIDd: 4.00 cm <2.7 cm IVSd: .80 cm 0.6 - 1.0 cm LVIDd: 4.70 cm 3.7 - 5.6 cm LVPWd: 1.00 cm 0.6 - 1.1 cm LVIDs: 3.30 cm 1.5 - 3.6 cm AO: 3.20 cm < 4.0 cm LA: 4.30 cm 2.0 - 4.0cm %FS: 29.80 cm >25 % LA volume: 62 Mitral Valve Peak E:.79 m/sec Peak A:.97 m/sec E/A Ratio:0.8 Peak E' Lat Fab:9.55 cm/s Peak E' Med Fab:6.43 cm/s E/E' Lat Ratio:8.3 E/E' Med Ratio:12.3 Tricuspid Valve TV Regurg Peak Grad: 79.00mmHg TV Regurg Peak Fab: 4.44m/sec Updated by Timbo Bray DO, FACDoyle, MARGE JORDAN on 09/24/2016 7:14:27 PM electronically signed on 09/24/2016 7:15:25 PM with status of Final Wall Motion Silva: 1=Normal, 2=Hypokinesis, 3=Akinesis, 4=Dyskinesis, 5=Aneurysmal, 6=Hyperkinetic, X=Not Visualized (Blank)=Missing
[2016-09-24] MEDS: Loratadine 10 MG TABLET PO SCH (21:26)
[2016-09-25] MEDS: Ipratropium/Albuterol Neb 3 ML IH SCH ×4 (03:52→22:39)
[2016-09-25] MEDS: *HR* Heparin 5,000 UNIT/ML VIAL SQ SCH ×2 (06:07→17:57)
[2016-09-25 06:50] LABS: Hematocrit 25.6 % (37.5-50.1); Hemoglobin 7.3 g/dL (12.9-16.9); Mean Corpuscular HGB Conc 28.5 g/dL (31.6-35.5); Mean Corpuscular Hemoglobin 26.5 pg (28.0-33.3); Mean Corpuscular Volume 93.1 fL (83.0-100.0); Platelet Count 157 K/mcL (140-400); Red Blood Count 2.75 M/mcL (4.19-5.50)
[2016-09-25 07:04] LABS: BUN/Creatinine Ratio 19 (6-26); Blood Urea Nitrogen 25 mg/dL (8-26); Carbon Dioxide 26 mEq/L (19-29); Chloride 106 mEq/L (98-109); Glucose 117 mg/dL (70-99); Osmolality,Calculated 297 (280-300); Potassium 4.4 mEq/L (3.5-4.5); Sodium 141 mEq/L (136-145); eGFR For African Americans > 60 (> 60); eGFR For Non-African Americans 53 (> 60)
[2016-09-25 07:24] LABS: Hypochromasia Present (Not Present); Lymphocytes # 1.6 K/mcL (0.6-4.6); Monocytes # 0.5 K/mcL (0.0-1.3); Toxic Vacuolation Present (Not Present)
[2016-09-25 07:25] LABS: Polychromasia 1+ (Not Present)
[2016-09-25] MEDS: Insulin LISPRO 300 UNITS/3 ML VIAL SQ SCH ×4 (07:33→20:50)
[2016-09-25] MEDS: Finasteride 5 MG TABLET PO SCH (08:44)
[2016-09-25] MEDS: Fluticasone Propionate Nasal 50 MCG/SPRAY BOTTLE NS SCH (08:44)
[2016-09-25] MEDS: GuaiFENesin Liq 200 MG/10 ML UDC PO SCH ×2 (08:44→20:49)
[2016-09-25] MEDS: levoFLOXacin 500 MG TABLET PO SCH (08:44)
--- NOTE | 2016-09-25 09:58 | Event Note ---
Date of Encounter: 09/25/16 Time of Encounter: 09:00 - Cardiology Event Note Echocardiogram shows preserved LV function, normal wall motion. Mild-moderate MR and TR. No events noted overnight upon telemetry review, avg HR=89. No further inpatient recommendations. Cardiology will sign-off, please call with questions. The patient was discussed and reviewed with Dr. Kimball. Follow-up with [place] [facility].
[2016-09-25] MEDS: Budesonide/Formoterol 160/4.5 MDI IH SCH ×2 (10:45→22:39)
--- NOTE | 2016-09-25 11:26 | Pulmonology Progress Note ---
Date of Encounter: 09/25/16 Time of Encounter: 10:45 Assessment and Plan (1) Acute and chronic respiratory failure with hypoxia Current Visit: Yes Status: Acute Patient is feeling better and continue wean off FIO2 to keep SPO2 around 92%. Poor prognosis. (2) COPD (chronic obstructive pulmonary disease) Current Visit: Yes Status: Chronic Patient has advance emphysema and he understand that. Patient was not able to perform spirometry, could be done as outpatient. Continue current bronchodilators. Qualifiers: COPD type: emphysema Emphysema type: panlobular Qualified Code(s): J43.1 - Panlobular emphysema (3) Pneumonia Current Visit: Yes Status: Acute Patient on appropriate antibiotic, follow up culture and sensitivity. 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 Unfortunately with his advance lung disease, perhaps not much can be offered other than treating his COPD and make sure his hypoxia is not worsen, if possible. Diuresis will be helpful as well as anticoagulation, but he is at risk of fall, which limit that option. Subjective Principal diagnosis: Syncope and dyspnea Interval history: Patient was not able to do spirometry and he is feeling he can breath better now. Objective PUL Vital signs: Last Vital Signs Temp 98.4 F 09/25/16 07:01 Pulse 85 09/25/16 07:01 Resp 18 09/25/16 10:45 BP 103/61 09/25/16 07:01 Pulse Ox 93 L 09/25/16 10:45 General appearance: no acute distress Eyes: nonicteric ENT: oropharynx dry Neck: supple, JVD Effort: mildly labored Auscultation: bilateral: diminished breath sounds Percussion: bilateral: not dull Cardiovascular: regular rate and rhythm Gastrointestinal: normoactive bowel sounds normal mental status, non-focal exam mood appropriate Results - Laboratory Findings CBC and BMP: 09/25/16 06:17 09/25/16 06:17 PT/INR, D-dimer PT 14.1 Seconds (9.4-12.1) H 09/24/16 01:07 D-Dimer 1016 ng/mLFEU (0-500) H 09/24/16 10:24 Abnormal lab findings: Abnormal lab results WBC 13.2 K/mcL (4.3-11.1) H D 09/25/16 06:17 RBC 2.75 M/mcL (4.19-5.50) L 09/25/16 06:17 Hgb 7.3 g/dL (12.9-16.9) L 09/25/16 06:17 Hct 25.6 % (37.5-50.1) L 09/25/16 06:17 MCH 26.5 pg (28.0-33.3) L 09/25/16 06:17 MCHC 28.5 g/dL (31.6-35.5) L 09/25/16 06:17 RDW 17.0 % (11.5-14.5) H 09/25/16 06:17 Band Neutrophils % 16.0 % (0-4) H 09/24/16 01:07 Metamyelocytes % 4.0 % (0) H 09/23/16 16:21 Myelocytes % 8.0 % (0) H 09/25/16 06:17 Neutrophils # 10.0 K/mcL (1.6-8.9) H 09/25/16 06:17 Basophils # 0.5 K/mcL (0.0-0.2) H 09/23/16 16:21 Toxic Vacuolation Present (Not Present) A 09/25/16 06:17 Platelet Estimate Slight Decrease (Normal) L 09/24/16 01:07 Large Platelets Present (Not Present) A 09/24/16 01:07 Polychromasia 1+ (Not Present) A 09/25/16 06:17 Hypochromasia Present (Not Present) A 09/25/16 06:17 Microcytosis Present (Not Present) A 09/24/16 01:07 PT 14.1 Seconds (9.4-12.1) H 09/24/16 01:07 D-Dimer 1016 ng/mLFEU (0-500) H 09/24/16 10:24 Creatinine 1.32 mg/dL (0.72-1.25) H 09/25/16 06:17 Est GFR (Non-Af Amer) 53 (> 60) L 09/25/16 06:17 Glucose 117 mg/dL (70-99) H 09/25/16 06:17 POC Glucose 129 (58-89) H 09/25/16 07:06 Calcium 8.0 mg/dL (8.6-10.8) L 09/25/16 06:17 Troponin I 0.28 ng/mL (0-0.03) H* 09/24/16 08:55 C-Reactive Protein 229 mg/L (Less than 5) H 09/24/16 01:07 B-Natriuretic Peptide 489 pg/mL (0-100) H 09/24/16 11:30 Albumin 2.5 g/dL (3.5-5.0) L 09/23/16 16:19 Globulin 4.6 g/dL (2.4-3.5) H 09/23/16 16:19 Albumin/Globulin Ratio 0.5 (1.1-2.2) L 09/23/16 16:19 HDL Cholesterol 32 mg/dL (40-59) L 09/24/16 01:07 Urine Protein 30 mg/dL (Neg-Trace) H 09/24/16 11:25 Urine Microscopic RBC 3-5 per hpf (0-3) H 09/24/16 11:25 Ur Squamous Epith Cells Many per lpf (None-Few) H 09/24/16 11:25 Granular Casts Few per lpf (None Seen) H 09/24/16 11:25 Urine Mucus Moderate (Few) H 09/24/16 11:25 - Diagnostic Findings CT scan - chest: report reviewed, image reviewed - Clinical Findings Intake & Output: Intake & Output 09/24/16 09/25/16 09/25/16 23:59 07:59 15:59 Intake Total 1560 / 1560 600 / 600 Output Total 200 / 200 0 / 0 Balance 1360 / 1360 600 / 600 Weight 68.946 kg Consult Discharge Plan - Plan Referrals: [place],PCP [Primary Care Provider] - 10/07/16 2:30 pm (Please follow up as schedule with your [place] Primary care...)
--- NOTE | 2016-09-25 11:38 | Internal Med Progress Note ---
Date of Encounter: 09/25/16 Time of Encounter: 11:15 - Assessment and plan (1) Acute and chronic respiratory failure with hypoxia Current Visit: Yes Status: Acute Assessment and plan: Continue O2 supplementation. Likely due to pneumonia and pulmonary hypertension. Continue Levaquin dosed renally. Moderate risk for complications. (2) Chronic respiratory failure with hypoxia Current Visit: Yes Status: Acute Assessment and plan: Continue O2 supplementation. (3) Syncope Current Visit: Yes Status: Resolved Assessment and plan: Could be related to orthostasis/vasovagal syncope. Patient was having dizziness yesterday and his orthostatic blood pressure was slightly positive. His he received IV fluids and is feeling better today. Continue to monitor telemetry. Qualifiers: Syncope type: vasovagal syncope Qualified Code(s): R55 - Syncope and collapse (4) JONAH (acute kidney injury) Current Visit: Yes Status: Acute Assessment and plan: Renal function is improving. Acute kidney injury could be due to ATN related to dehydration. (5) Anemia Current Visit: Yes Status: Acute Assessment and plan: Hemoglobin is 7.3 today. Will check stool for occult blood. Also check iron levels, B12 and folic acid levels Qualifiers: Anemia type: unspecified type Qualified Code(s): D64.9 - Anemia, unspecified (6) CHF (congestive heart failure) Current Visit: Yes Status: Chronic Assessment and plan: 2-D echocardiogram done shows mild left ventricle diastolic dysfunction with EF of 55-60%. Patient also has severe pulmonary hypertension which could be contributing to his hypoxia. Qualifiers: Congestive heart failure type: unspecified congestive heart failure type Congestive heart failure chronicity: unspecified congestive heart failure chronicity Qualified Code(s): I50.9 - Heart failure, unspecified (7) COPD (chronic obstructive pulmonary disease) Current Visit: Yes Status: Chronic Assessment and plan: Not in acute exacerbation. Continue nebs as needed. Qualifiers: COPD type: emphysema Emphysema type: panlobular Qualified Code(s): J43.1 - Panlobular emphysema (8) DVT prophylaxis Current Visit: Yes Status: Acute (9) Diarrhea Current Visit: Yes Status: Chronic Assessment and plan: Will check stool for C. difficile as patient is currently complaining of diarrhea. Qualifiers: Diarrhea type: unspecified type Qualified Code(s): R19.7 - Diarrhea, unspecified (10) Elevated troponin Current Visit: Yes Status: Acute Assessment and plan: Cardiology evaluated patient. Troponin elevation likely related to a Demand ischemia. Trended down. Echocardiogram does not show abnormalities. (11) Hyperkalemia Current Visit: Yes Status: Resolved Assessment and plan: This has resolved (12) Pulmonary hypertension, secondary Current Visit: Yes Status: Chronic (13) Pneumonia Current Visit: Yes Status: Suspected Assessment and plan: CT chest shows consolidative changes. Pneumonia. Continue levofloxacin dosed renally. Blood cultures have been negative so far. Qualifiers: Pneumonia type: due to Pneumococcus Laterality: right Lung location: middle lobe of lung Qualified Code(s): J13 - Pneumonia due to Streptococcus pneumoniae - Subjective Interval history: Complaints of diarrhea. Continues to have some dyspnea. Denies any fever or chills or night sweats. No nausea or vomiting. Currently on 4 L nasal cannula which is his baseline. Denies any dizziness at this time. - Constitutional Vitals: Temp Pulse Resp BP Pulse Ox 98.4 F 85 18 103/61 93 L 09/25/16 07:01 09/25/16 07:01 09/25/16 10:45 09/25/16 07:01 09/25/16 10:45 General appearance: Present: cooperative, mild distress, A&O X 3, no acute distress, answers questions appropriately - Respiratory Respiratory exam: Present: prolonged expiratory phase. Absent: accessory muscle use, rales, rhonchi, wheezes Additional comments: Diminished air entry bilaterally - Cardiovascular Cardiovascular exam: Present: RRR, +S1, +S2. Absent: diastolic murmur, gallop, rubs, systolic murmur - GI/Abdominal GI/Abdominal exam: Present: normal bowel sounds, soft, no peritoneal signs. Absent: distended, tenderness - Extremities Exam Extremities exam: Present: warm, radial pulses palpable and symetrical. Absent : calf tenderness, cyanotic, pedal edema - Neurological Exam Neurological exam: Present: alert, oriented X3, no focal deficits. Absent: facial droop, speech deficit - Psychiatric Psychiatric exam: Present: flat affect Internal Medicine: Result - Labs CBC & Chem 7: 09/25/16 06:17 09/25/16 06:17 Labs: Short CBC 09/25/16 Range/Units 06:17 WBC 13.2 H D (4.3-11.1) K/mcL Hgb 7.3 L (12.9-16.9) g/dL Hct 25.6 L (37.5-50.1) % Plt Count 157 (140-400) K/mcL Neutrophils # 10.0 H (1.6-8.9) K/mcL BMP 09/25/16 06:17 Sodium 141 Potassium 4.4 Chloride 106 Carbon Dioxide 26 BUN 25 Creatinine 1.32 H Glucose 117 H Calcium 8.0 L Urine 09/24/16 Range/Units 11:25 Urine Color Yellow (Yellow) Urine Clarity Clear (Clear) Urine pH 5.5 (5.0-8.0) pH Units Ur Specific [place] 1.024 (1.010-1.025) Urine Protein 30 H (Neg-Trace) mg/dL Urine Glucose (UA) Normal (Normal) mg/dL - ABG Interpretation ABG results: PT/INR, D-dimer PT 14.1 Seconds (9.4-12.1) H 09/24/16 01:07 D-Dimer 1016 ng/mLFEU (0-500) H 09/24/16 10:24 - Impressions Impressions Chest CT 09/24/16 10:44 IMPRESSION: 1. Patchy airspace opacity anteriorly in the right middle lobe, concerning for pneumonia. Mild patchy opacities posteriorly in the left lower lobe may represent pneumonia or atelectasis. 2. An 8 mm ill-defined spiculated nodule in the superior segment of the right lower lobe. Follow-up per guidelines below. 3. Mild mediastinal lymphadenopathy, which could be reactive. 4. Coronary atherosclerosis. 5. Severe emphysema. Scattered areas of scarring throughout both lungs. RECOMMENDATIONS: Fleischner Society guidelines for follow-up and management of pulmonary nodules: Nodule size equals 6-8 mm In a low-risk patient, initial follow-up CT at 6-12 months then at 18-24 months if no change. In a high-risk patient, initial follow-up CT at 3-6 months then at 9-12 months and 24 months if no change. Nodule size greater than 8 mm In low-risk and high-risk patients follow-up CT at around 3, 9, and 24 months, contrast-enhanced CT, PET, and/or biopsy. Low risk patients include individuals with minimal or absent history of smoking and other known risk factors. High risk patients include individuals with a history of smoking or other known risk factors. Radiology 2005; [id number] D/ / 09/24/2016 14:04:10 Jayro Baxter MD / [email or web address] Interpreting Provider: Jayro Baxter MD Consult Discharge Plan - Plan Referrals: [facility] [Primary Care Provider] - 10/07/16 2:30 pm (Please follow up as schedule with your [place] Primary care...) - Attending Attestation This document has been at least partially created by [employer] recognition technology by Dr. Mas. Errors in grammar, wording or other phrases may exist. If errors are found after the documentation is signed, they will be addressed individually in the addendum section of this document when appropriate.
[2016-09-25 12:54] LABS: % Iron Saturation 13 % (20-55); Iron 23 mcg/dL (65-175); Transferrin 128 mg/dL (174-364)
[2016-09-25 13:14] LABS: Ferritin 1142 ng/ml (22-275)
[2016-09-25 13:28] LABS: Folate 6.9 ng/mL (7.0-31.4)
--- NOTE | 2016-09-25 16:24 | Venous Imaging Report ---
LE Venous Duplex Patient Name:Jg Leiva Order Number:[id number] Procedure Date:09/24/2016 Date:4Age:71 yrs Gender:Male Location:[facility] Room #: 2A22 Vp Corporate Development:Caryl Hernandez Referring MD:Irena Aldana DO harpsichord maker:[facility] Gayatri MD:Anam Robles MD Primary Indications:Concern for PE Secondary Indications: Risk Factors Yes/No Anticoagulants Impressions: Normal bilateral lower extremity deep and superficial venous exam. Recommendations: After imaging the patient returned to their room. Findings Prior Study: No prior study available for comparison. Lower Extremity Venous Duplex Side Vein Compress Spontaneous Flow Augment Diameter (cm) Depth (cm) Right Distal Iliac Normal Yes Phasic Yes Right Common Femoral Normal Yes Phasic Yes Right Superficial Femoral Normal Yes Phasic Yes Right Popliteal Normal Yes Phasic Yes Right Posterior Tibial Normal Yes Phasic Yes Right Peroneal Normal Yes Phasic Yes Right Saphenofemoral [place]unction Normal Yes Phasic Yes Right Great Saphenous Normal Yes Phasic Yes Right Lesser Saphenous Normal Yes Phasic Yes Left Distal Iliac Normal Yes Phasic Yes Left Common Femoral Normal Yes Phasic Yes Left Superficial Femoral Normal Yes Phasic Yes Left Popliteal Normal Yes Phasic Yes Left Posterior Tibial Normal Yes Phasic Yes Left Peroneal Normal Yes Phasic Yes Left Saphenofemoral [place] Normal Yes Phasic Yes Left Great Saphenous Normal Yes Phasic Yes Left Lesser Saphenous Normal Yes Phasic Yes Updated by Anam Robles MD on 09/25/2016 4:19:35 PM electronically signed on 09/25/2016 4:20:10 PM with status of Final
[2016-09-25] MEDS: Loratadine 10 MG TABLET PO SCH (20:49)
[2016-09-26] MEDS ORDERED: Ipratropium/Albuterol Neb 3 ML IH ONE (01:47)
[2016-09-26] MEDS: Ipratropium/Albuterol Neb 3 ML IH SCH ×5 (01:56→21:20)
[2016-09-26 06:13] LABS: Hemoglobin 7.6 g/dL (12.9-16.9); Mean Platelet Volume 11.4 fL (9.4-12.4)
[2016-09-26 06:14] LABS: Basophils # 0.1 K/mcL (0.0-0.2); Basophils % 1.2 %; Eosinophils % 0.3 %; Immature Granulocytes % 23.7 % (0-4); Lymphocytes # 0.8 K/mcL (0.6-4.6); Lymphocytes % 7.1 %; Mean Corpuscular HGB Conc 29.2 g/dL (31.6-35.5); Mean Corpuscular Hemoglobin 27.3 pg (28.0-33.3); Mean Corpuscular Volume 93.5 fL (83.0-100.0); Monocytes # 0.8 K/mcL (0.0-1.3); Monocytes % 6.8 %; Neutrophils # 7.1 K/mcL (1.6-8.9); Platelet Count 184 K/mcL (140-400); Red Blood Count 2.78 M/mcL (4.19-5.50); Red Cell Distribution Width 17.1 % (11.5-14.5); Segmented Neutrophils % 60.9 %
[2016-09-26 06:28] LABS: BUN/Creatinine Ratio 15 (6-26); Blood Urea Nitrogen 19 mg/dL (8-26); Calcium 8.1 mg/dL (8.6-10.8); Carbon Dioxide 26 mEq/L (19-29); Chloride 104 mEq/L (98-109); Glucose 121 mg/dL (70-99); Osmolality,Calculated 292 (280-300); Potassium 4.5 mEq/L (3.5-4.5); Sodium 139 mEq/L (136-145); eGFR For African Americans > 60 (> 60); eGFR For Non-African Americans 56 (> 60)
[2016-09-26] MEDS: Insulin LISPRO 300 UNITS/3 ML VIAL SQ SCH ×4 (07:15→20:39)
[2016-09-26] MEDS ORDERED: Ipratropium/Albuterol Neb 3 ML IH PRN (07:49)
[2016-09-26 07:59] LABS: Platelet Estimate Normal (Normal)
--- NOTE | 2016-09-26 09:52 | Palliative - Consult Note ---
Date of Encounter: 09/26/16 Time of Encounter: 09:52 - Assessment and Plan (1) Shortness of breath Current Visit: Yes Status: Acute Assessment and plan: Patient is being seen by him in area as well as the acute care team. Patient currently is on BiPAP, continue this as well as oxygen the patient's had a very increasing need for oxygen. Started him on some low-dose feeding as well as Ativan as well. (2) Goals of care, counseling/discussion Current Visit: Yes Status: Acute Assessment and plan: Patient changed from full code to DNR CCA. He is considering whether or not he wishes to be DNI. Family not present. Wish to discuss with his . although he does currently meet hospice criteria, he is able to get around pretty well at home. He would have to be willing to off for total stopping of care if you wish to avail himself of that. Patient [place] get care through [facility] and would [facility]. (3) JONAH (acute kidney injury) Current Visit: Yes Status: Acute Assessment and plan: Slowly improving, plan per hospitalist team. (4) Acute and chronic respiratory failure with hypoxia Current Visit: Yes Status: Acute Assessment and plan: Patient become significantly hypoxemic with just standing. He also gets short of breath with any conversation. Clearly he meets hospice criteria if he so desires. At this time he wishes to further discuss being intubated and was not ready to discuss hospice. Follow along with this. (5) Anemia Current Visit: Yes Status: Acute Assessment and plan: Plan per hospitalist team Qualifiers: Anemia type: unspecified type Qualified Code(s): D64.9 - Anemia, unspecified (6) Pneumonia Current Visit: Yes Status: Suspected Assessment and plan: The patient is currently on antibiotics. Blood cultures are negative thus far white blood cell count not elevated and no significant fever (MAXIMUM TEMPERATURE 100.2). When per hospitalist team. This may all be acute exacerbation of COPD. Qualifiers: Pneumonia type: due to Pneumococcus Laterality: right Lung location: middle lobe of lung Qualified Code(s): J13 - Pneumonia due to Streptococcus pneumoniae Palliative-CN HPI - Data of Consult Patient: new to practice Requesting Physician: Balbina Mas MD Primary Care Provider: [facility] - Consult Narrative Palliative Care/Comfort Measures: Palliative care Reason for consult: Also of care, CODE STATUS History of present illness: Mr. Leiva is a 71 year old male Presents with a history of COPD on home O2 at 4 L/m. As well as CHF and diabetes as well as anemia. Patient had a fall at home and he blacked out for a little bit. Said he did hit his head he went to the [facility] for evaluation to have an abrasion on the left hand side of his forehead and multiple bruises. Found to have elevated troponins and was then transferred to [facility] for further evaluation. Reports that he is had diarrhea for the last couple of days prior to admission that he was in the hospital back in July for pneumonia and had antibiotics at that time. He is been having increasing shortness of breath at home and using his home O2 as well as BiPAP at night. No shortness of breath with room to room and he even become short of breath with talking. Since admission the patient has also been noted to have shortness of breath with just standing up. He is been found to have a difficult COPD per pulmonary LS pneumonia. Patient became acutely short of breath and was sure that he was dying. These reasons palliative was counseled regarding goals of care and CODE STATUS. The see the SPEP and plan. CODE STATUS was changed today. Patient states he is having very little in the way of pain, it is felt that his syncope is secondary to his breathing. His stools are now formed. No mention in the medical record about C. difficile. He is currently on BiPAP and admits to being very short of breath. Denies any pain at this moment in time. CC: Balbina Mas MD Shortness of breath Past Med Surg Social Fam HX - Past Medical History Medical history: COPD, dementia, diabetes Psychiatric history: depression, PTSD - Social History Smoking Status: Never smoker Alcohol use: none Drug use: none - Family History Mother Hx Family Endocrine Disorder: Yes (daibetes) Father Hx Family Cardiac Disorders: Yes (heart attack) Medications and Allergies Acetaminophen [Tylenol] 325 mg PO Q6HR PRN 09/23/16 [History] Albuterol Sulfate [Albuterol Inhaler] 2 puff IH Q4H PRN 09/23/16 [History] Atorvastatin Calcium [Lipitor] 20 mg PO HS 09/23/16 [History] Budesonide/Formoterol 160/4.5 [Symbicort 160/4.5] 2 puff IH BIDR 09/23/16 [ History] Cetirizine HCl [All Day Allergy] 10 mg PO HS 09/23/16 [History] Docusate [Colace] 200 mg PO DAILY 09/23/16 [History] Epoetin Nathanael [Epogen] 6,000 unit IJ QWEEK 09/23/16 [History] Ferrous Sulfate 325 mg PO DAILY 09/23/16 [History] Finasteride [Proscar] 5 mg PO DAILY 09/23/16 [History] Fluticasone Propionate Nasal [Flonase] 50 mcg NS DAILY 09/23/16 [History] GlipiZIDE [Glucotrol] 5 mg PO DAILY 09/23/16 [History] GuaiFENesin/Dextromethorphan [Robitussin/DM] 10 ml PO Q4H PRN 09/23/16 [History] Guaifenesin [Mucus Relief] 400 mg PO Q12H 09/23/16 [History] Ipratropium/Albuterol Neb [Duoneb] 3 ml IH Q6H PRN 09/23/16 [History] Magnesium Hydroxide [Milk of Magnesia] 1,200 mg PO DAILY PRN 09/23/16 [History] Naproxen [Naprosyn] 500 mg PO BID 09/23/16 [History] Saxagliptin HCl [Onglyza] 2.5 mg PO DAILY 09/23/16 [History] Spironolactone [Aldactone] 12.5 mg PO DAILY 09/23/16 [History] Trospium Chloride 20 mg PO BID 09/23/16 [History] Allergies gabapentin Allergy (Verified 09/23/16 15:04) See Comments mushroom Allergy (Verified 09/23/16 15:04) See Comments pregabalin Allergy (Verified 09/23/16 15:04) See Comments - Constitutional Constitutional ROS PAL: decreased appetite, chills, fatigue, weight loss - EENT Eyes: no discharge, no pain Ears: no ear discharge, no ear pain Ears, nose, mouth, throat: no facial pain, no hoarseness, no neck mass, no neck pain - Cardiovascular Cardiovascular ROS: dyspnea on exertion, no chest pain, no chest pain at rest, no chest pain with activity - Respiratory Respiratory: cough, dyspnea, dyspnea on exertion, chest congestion, no excessive phlegm production - Gastrointestinal Gastrointestinal: diarrhea, no constipation, no nausea, no vomiting - Genitourinary Genitourinary ROS male: no urinary frequency, no urinary hesitancy, no urinary incontinence - Integumentary ROS Integumentary: no skin pain, no sores - Neurological Neurological ROS: weakness, no frequent falls, no headache(s), no radicular pain , no sensory deficit - Psychiatric Psychiatric general PM: no homicidal ideation, no suicidal ideation - Endocrine Endocrine IM: other (His diabetes) Palliative Care-Exam - Constitutional Vitals: Temp Pulse Resp BP Pulse Ox 99.4 F 91 17 120/73 98 09/26/16 06:57 09/26/16 06:57 09/26/16 06:57 09/26/16 06:57 09/26/16 06:57 General appearance: Present: mild distress (Shortness of breath) - Head Head Exam: Absent: atraumatic, normal inspection, normocephalic - Eye Eye exam: Present: normal appearance (Difficult to see due to his BiPAP mask) - ENT ENT exam: Present: mucous membranes dry (Difficult to truly assess due to the BiPAP mask) - Neck Neck exam: Present: normal inspection - Respiratory Respiratory exam: Present: decreased breath sounds, prolonged expiratory phase, wheezes - Cardiovascular Cardiovascular exam: Present: RRR - GI/Abdominal Exam GI/Abdominal exam: Present: normal bowel sounds. Absent: soft, tenderness - Extremities Exam Extremities exam: Present: normal inspection. Absent: pedal edema, tenderness - Neurological Exam Neurological exam: Present: alert, oriented X3 - Psychiatric Psychiatric exam: Present: normal affect, normal mood. Absent: agitated, anxious, homicidal ideation, suicidal ideation - Skin Skin exam: Present: dry, warm Internal Medicine - CN: Reslt - Labs CBC & Chem 7: 09/26/16 05:14 09/26/16 05:14 Labs: Short CBC 09/26/16 Range/Units 05:14 WBC 11.6 H (4.3-11.1) K/mcL Hgb 7.6 L (12.9-16.9) g/dL Hct 26.0 L (37.5-50.1) % Plt Count 184 (140-400) K/mcL Neutrophils # 7.1 (1.6-8.9) K/mcL BMP 09/26/16 05:14 Sodium 139 Potassium 4.5 Chloride 104 Carbon Dioxide 26 BUN 19 Creatinine 1.27 H Glucose 121 H Calcium 8.1 L - ABG Interpretation ABG results: PT/INR, D-dimer PT 14.1 Seconds (9.4-12.1) H 09/24/16 01:07 D-Dimer 1016 ng/mLFEU (0-500) H 09/24/16 10:24 Consult Discharge Plan - Plan Referrals: [facility],PCP [Primary Care Provider] - 10/07/16 2:30 pm (Please follow up as schedule with your [facility] Primary care...) Palliative Quality Palliative Quality: Screen for Code Status: Yes, Screen for Goals of Care: Yes, Screen for Pain: Yes, If Pain Regimen Started, Initiate Bowel Regimen: Yes, Screen for Nausea/Vomitting: Yes Code Status: 09/25/16 07:58 Resuscitation Status: Active [RES] Routine Comment: Resuscitation Status: Full Code
[2016-09-26] MEDS: *HR* Heparin 5,000 UNIT/ML VIAL SQ SCH ×2 (10:15→17:10)
[2016-09-26] MEDS: Fluticasone Propionate Nasal 50 MCG/SPRAY BOTTLE NS SCH (10:16)
[2016-09-26] MEDS: Finasteride 5 MG TABLET PO SCH (10:16)
[2016-09-26] MEDS: GuaiFENesin Liq 200 MG/10 ML UDC PO SCH ×2 (10:16→23:33)
[2016-09-26] MEDS: Budesonide/Formoterol 160/4.5 MDI IH SCH ×2 (10:37→21:20)
[2016-09-26] MEDS: methylPREDNISolone 125 MG/2 ML VIAL IVP SCH ×3 (11:06→23:34)
[2016-09-26] MEDS ORDERED: *HR* LORazepam 2 MG/ML VIAL IVP PRN (12:26)
--- NOTE | 2016-09-26 13:29 | Internal Med Progress Note ---
Date of Encounter: 09/26/16 Time of Encounter: 11:45 - Assessment and plan (1) Acute and chronic respiratory failure with hypoxia Current Visit: Yes Status: Acute Assessment and plan: Due to pneumonia, pulmonary hypertension and COPD. Continue levofloxacin or motor supplementation, BiPAP use. Patient's condition is terminal with end- stage COPD and pulmonary hypertension. Poor prognosis. Palliative care consulted. After discussing with family, he was made DNR comfort care arrest. (2) Chronic respiratory failure with hypoxia Current Visit: Yes Status: Acute Assessment and plan: O2 supplementation (3) Syncope Current Visit: Yes Status: Resolved Qualifiers: Qualified Code(s): R55 - Syncope and collapse (4) JONAH (acute kidney injury) Current Visit: Yes Status: Acute Assessment and plan: Renal function continues to improve. (5) Anemia Current Visit: Yes Status: Acute Assessment and plan: Hemoglobin remained stable at 7.6 today. Will continue to monitor closely. Patient has low folic acid and folic levels. Will replace. Qualifiers: Qualified Code(s): D64.9 - Anemia, unspecified (6) CHF (congestive heart failure) Current Visit: Yes Status: Chronic Assessment and plan: Chronic. Not in acute extubation. Qualifiers: Qualified Code(s): I50.9 - Heart failure, unspecified (7) COPD (chronic obstructive pulmonary disease) Current Visit: Yes Status: Chronic Assessment and plan: Patient having episodes of bronchospasm and wheezing. We will start IV steroids. Continue levofloxacin Qualifiers: Qualified Code(s): J43.1 - Panlobular emphysema (8) DVT prophylaxis Current Visit: Yes Status: Acute (9) Diarrhea Current Visit: Yes Status: Chronic Assessment and plan: This has improved. Qualifiers: Qualified Code(s): R19.7 - Diarrhea, unspecified (10) Elevated troponin Current Visit: Yes Status: Acute (11) Hyperkalemia Current Visit: Yes Status: Resolved (12) Pulmonary hypertension, secondary Current Visit: Yes Status: Chronic Assessment and plan: Poor prognosis. Continue O2 supplementation (13) Pneumonia Current Visit: Yes Status: Suspected Assessment and plan: On levofloxacin. Cultures have been negative so far. Qualifiers: Qualified Code(s): J13 - Pneumonia due to Streptococcus pneumoniae - Subjective Interval history: Evaluated patient. Was wearing BiPAP and sleeping. He has been having intermittent dyspnea and bronchospasm which improves with breathing treatments. He was concerned that his condition was not getting any better. He has a low- grade fever today with MAXIMUM TEMPERATURE of 100.2F - Constitutional Vitals: Temp Pulse Resp BP Pulse Ox 100.2 F H 102 20 129/84 100 09/26/16 10:53 09/26/16 10:53 09/26/16 10:53 09/26/16 10:53 09/26/16 10:53 General appearance: Present: cooperative, mild distress, A&O X 3, no acute distress, answers questions appropriately - ENT Additional comments: BiPAP mask in place - Respiratory Respiratory exam: Present: prolonged expiratory phase, wheezes. Absent: accessory muscle use, rales, rhonchi - Cardiovascular Cardiovascular exam: Present: RRR, +S1, +S2. Absent: diastolic murmur, gallop, rubs, systolic murmur - GI/Abdominal GI/Abdominal exam: Present: normal bowel sounds, soft, no peritoneal signs. Absent: distended, tenderness - Extremities Exam Extremities exam: Present: warm, radial pulses palpable and symetrical. Absent : calf tenderness, cyanotic, pedal edema - Neurological Exam Neurological exam: Present: oriented X3, no focal deficits. Absent: facial droop, speech deficit - Skin Skin exam: Present: dry, intact Internal Medicine: Result - Labs CBC & Chem 7: 09/26/16 05:14 09/26/16 05:14 Labs: Short CBC 09/26/16 Range/Units 05:14 WBC 11.6 H (4.3-11.1) K/mcL Hgb 7.6 L (12.9-16.9) g/dL Hct 26.0 L (37.5-50.1) % Plt Count 184 (140-400) K/mcL Neutrophils # 7.1 (1.6-8.9) K/mcL BMP 09/26/16 05:14 Sodium 139 Potassium 4.5 Chloride 104 Carbon Dioxide 26 BUN 19 Creatinine 1.27 H Glucose 121 H Calcium 8.1 L - ABG Interpretation ABG results: PT/INR, D-dimer PT 14.1 Seconds (9.4-12.1) H 09/24/16 01:07 D-Dimer 1016 ng/mLFEU (0-500) H 09/24/16 10:24 Consult Discharge Plan - Plan [facility]errals: [facility] Care Provider[facility] - 10/07/16 2:30 pm (Please follow up [facility] schedule [facility]...) - Attending Attestation This document has been at least partially created by [employer] recognition technology by Dr. Mas. Errors in grammar, wording or other phrases may exist. If errors are found after the documentation is signed, they will be addressed individually in the addendum section of this document when appropriate.
--- NOTE | 2016-09-26 15:00 | Event Note ---
Date of Encounter: 09/26/16 Time of Encounter: 14:59 Had a long discussion with patient his and extended family. At The end of this discussion patient has opted for full CODE STATUS. I believe at this time he understands the implications of this and he is going to continue to discuss this with the family especially with regard to how long would he be okay with being intubated for. However at this time I am changing his CODE STATUS back to full code from DNRCCA. Palliative care team will be involved with getting the patient his as directives done probably designate his is his medical power of civil rights attorney she is aware of his wishes and agrees with his full CODE STATUS.
[2016-09-26 15:22] LABS: ABG Base Excess 4.6 mEq/L (-2.0 to 3.0); ABG Oxygen Saturation 98 % (95-98); ABG PCO2 65 mmHg (35-45); ABG PO2 125 mmHg (85-104)
[2016-09-26 15:23] LABS: Blood Gas FiO2 36 %
[2016-09-26 18:18] LABS: ABG Base Excess 3.4 mEq/L (-2.0 to 3.0); ABG HCO3 30.1 mEQ/L (21-27); ABG Oxygen Saturation 96 % (95-98); ABG PCO2 57 mmHg (35-45); ABG PH 7.33 pH Units (7.32-7.45); ABG PO2 89 mmHg (85-104); ABG TCO2 31.8 mEq/L (20-26)
[2016-09-26 18:19] LABS: Blood Gas FiO2 36 %; Blood Gas Liter Flow 4 L/MIN
[2016-09-26] MEDS: Loratadine 10 MG TABLET PO SCH (20:38)
[2016-09-26] MEDS: *HR* Morphine 2 MG/ML SYRINGE IVP PRN ×2 (20:38→23:34)
[2016-09-27] MEDS: Ipratropium/Albuterol Neb 3 ML IH SCH ×4 (04:27→22:51)
[2016-09-27] MEDS: methylPREDNISolone 125 MG/2 ML VIAL IVP SCH ×4 (06:33→23:59)
[2016-09-27] MEDS: *HR* Heparin 5,000 UNIT/ML VIAL SQ SCH ×2 (06:33→21:55)
[2016-09-27] MEDS: Folic Acid 1 MG TABLET PO SCH (07:55)
[2016-09-27] MEDS: Insulin LISPRO 300 UNITS/3 ML VIAL SQ SCH ×4 (07:55→21:55)
[2016-09-27] MEDS: Fluticasone Propionate Nasal 50 MCG/SPRAY BOTTLE NS SCH (07:55)
[2016-09-27] MEDS: Finasteride 5 MG TABLET PO SCH (07:55)
[2016-09-27] MEDS: levoFLOXacin 500 MG TABLET PO SCH (07:55)
[2016-09-27 08:48] LABS: Calcium 9.1 mg/dL (8.6-10.8); Potassium 4.9 mEq/L (3.5-4.5)
[2016-09-27 08:53] LABS: Basophils # 0.2 K/mcL (0.0-0.2); Basophils % 2.3 %; Hematocrit 33.8 % (37.5-50.1); Hemoglobin 9.6 g/dL (12.9-16.9); Immature Granulocytes % 15.2 % (0-4); Lymphocytes # 0.5 K/mcL (0.6-4.6); Lymphocytes % 4.4 %; Mean Corpuscular HGB Conc 28.4 g/dL (31.6-35.5); Mean Corpuscular Volume 95.2 fL (83.0-100.0); Monocytes # 0.1 K/mcL (0.0-1.3); Monocytes % 1.2 %; Neutrophils # 8.2 K/mcL (1.6-8.9); Platelet Count 171 K/mcL (140-400); Red Blood Count 3.55 M/mcL (4.19-5.50); Red Cell Distribution Width 16.9 % (11.5-14.5); Segmented Neutrophils % 76.9 %
[2016-09-27] MEDS: Insulin DETEMIR 100 UNIT/ML X5UNITS SQ SCH ×2 (08:59→21:56)
[2016-09-27 09:58] LABS: Microcytosis Present (Not Present); Platelet Estimate Slight Decrease (Normal); Polychromasia 1+ (Not Present)
[2016-09-27 09:59] LABS: Anisocytosis 1+ (Not Present); Macrocytosis Present (Not Present); Toxic Granulation Present (Not Present)
[2016-09-27 10:00] LABS: Smudge Cells Present (Not Present)
[2016-09-27] MEDS ORDERED: *HR* OxyCODONE Immed Rel 5 MG TABLET PO PRN (10:43)
--- NOTE | 2016-09-27 10:46 | Palliative Progress Note ---
Date of Encounter: 09/27/16 Time of Encounter: 10:50 - Assessment and plan (1) Shortness of breath Current Visit: Yes Status: Acute Assessment and plan: Has low dose Morphine IV PRN. Utilized x2 yesterday, but pt states he used more for leg pain than breathing. Continue and monitor (2) Bilateral knee pain Current Visit: Yes Status: Acute Assessment and plan: Trial low dose Oxycodone and monitor. (3) Counseling regarding advanced care planning and goals of care Current Visit: Yes Status: Acute Assessment and plan: Patient desires to complete healthcare poa and asking me to return later when arrives. Will f/u this afternoon (4) Acute and chronic respiratory failure with hypoxia Current Visit: Yes Status: Acute - Time Spent With Patient Total time spent is greater than 50% in coordination of care (as documented) at patient's floor/unit and/or counseling patient: 25 - 35 minutes - Subjective Interval history: Patient awake and alert, expresses frustration this am with many people "in and out" and states he is having bilateral leg pain from knees down and states he has had this pain ever since ortho surgeries. Denies n/v or constipation. States still very dyspneic on any exertion and states saturations fall into the 70's when try to sit up on side of bed. - Constitutional Vitals: Abnormal lab results RBC 3.55 M/mcL (4.19-5.50) L 09/27/16 08:27 Hgb 9.6 g/dL (12.9-16.9) L D 09/27/16 08:27 Hct 33.8 % (37.5-50.1) L 09/27/16 08:27 MCH 27.0 pg (28.0-33.3) L 09/27/16 08:27 MCHC 28.4 g/dL (31.6-35.5) L 09/27/16 08:27 RDW 16.9 % (11.5-14.5) H 09/27/16 08:27 Immature Gran % 15.2 % (0-4) H 09/27/16 08:27 Band Neutrophils % 16.0 % (0-4) H 09/24/16 01:07 Metamyelocytes % 4.0 % (0) H 09/23/16 16:21 Myelocytes % 8.0 % (0) H 09/25/16 06:17 Lymphocytes # 0.5 K/mcL (0.6-4.6) L 09/27/16 08:27 Smudge Cells Present (Not Present) A 09/27/16 08:27 Toxic Granulation Present (Not Present) A 09/27/16 08:27 Toxic Vacuolation Present (Not Present) A 09/25/16 06:17 Platelet Estimate Slight Decrease (Normal) L 09/27/16 08:27 Large Platelets Present (Not Present) A 09/24/16 01:07 Polychromasia 1+ (Not Present) A 09/27/16 08:27 Hypochromasia Present (Not Present) A 09/25/16 06: Anisocytosis 1+ (Not Present) A 09/27/16 08:27 Microcytosis Present (Not Present) A 09/27/16 08:27 Macrocytosis Present (Not Present) A 09/27/16 08:27 PT 14.1 Seconds (9.4-12.1) H 09/24/16 01:07 D-Dimer 1016 ng/mLFEU (0-500) H 09/24/16 10:24 ABG pCO2 57 mmHg (35-45) H 09/26/16 18:04 ABG HCO3 30.1 mEQ/L (21-27) H 09/26/16 18:04 ABG Total CO2 31.8 mEq/L (20-26) H 09/26/16 18:04 ABG Base Excess 3.4 mEq/L (-2.0 to 3.0) H 09/26/16 18:04 Potassium 4.9 mEq/L (3.5-4.5) H 09/27/16 08:27 Creatinine 1.47 mg/dL (0.72-1.25) H 09/27/16 08:27 Est GFR ( Amer) 57 (> 60) L 09/27/16 08:27 Est GFR (Non-Af Amer) 47 (> 60) L 09/27/16 08:27 Glucose 311 mg/dL (70-99) H 09/27/16 08:27 POC Glucose 281 (58-89) H 09/27/16 07:21 Calculated Osmolality 305 (280-300) H 09/27/16 08:27 Iron 23 mcg/dL (65-175) L 09/25/16 12:13 % Saturation 13 % (20-55) L 09/25/16 12:13 Transferrin 128 mg/dL (174-364) L 09/25/16 12:13 Ferritin 1142 ng/ml (22-275) H 09/25/16 12:13 Troponin I 0.28 ng/mL (0-0.03) H* 09/24/16 08:55 C-Reactive Protein 229 mg/L (Less than 5) H 09/24/16 01:07 B-Natriuretic Peptide 489 pg/mL (0-100) H 09/24/16 11:30 Albumin 2.5 g/dL (3.5-5.0) L 09/23/16 16:19 Globulin 4.6 g/dL (2.4-3.5) H 09/23/16 16:19 Albumin/Globulin Ratio 0.5 (1.1-2.2) L 09/23/16 16:19 HDL Cholesterol 32 mg/dL (40-59) L 09/24/16 01:07 Vitamin B12 1017 pg/mL (213-816) H 09/25/16 12:13 Folate 6.9 ng/mL (7.0-31.4) L 09/25/16 12:13 Urine Protein 30 mg/dL (Neg-Trace) H 09/24/16 11:25 Urine Microscopic RBC 3-5 per hpf (0-3) H 09/24/16 11:25 Ur Squamous Epith Cells Many per lpf (None-Few) H 09/24/16 11:25 Granular Casts Few per lpf (None Seen) H 09/24/16 11:25 Urine Mucus Moderate (Few) H 09/24/16 11:25 General appearance: Present: no acute distress - Expanded Respiratory Exam Location: decreased breath sounds: Left, Right, Lower - Cardiovascular Cardiovascular exam: Present: +S1, +S2 - GI/Abdominal GI/Abdominal exam: Present: distended, normal bowel sounds, soft - Additional comments: Voids per urinal - Extremities Exam Extremities exam: Present: normal capillary refill, normal inspection - Neurological Exam Neurological exam: Present: alert, oriented X3, strengths equal and symetr throughout - Skin Skin exam: Present: dry, pallor, warm Palliative Quality Palliative Quality: Screen for Code Status: Yes, Screen for Goals of Care: Yes, Screen for Pain: Yes, If Pain Regimen Started, Initiate Bowel Regimen: Yes, Screen for Nausea/Vomitting: Yes Code Status: 09/25/16 07:58 Resuscitation Status: Active [RES] Routine Comment: Resuscitation Status: DNR-Comfort Care-Arrest Resuscitation Status: Active [RES] Routine Comment: Resuscitation Status: Full Code Resuscitation Status: Active [RES] Routine Comment: Resuscitation Status: Full Code - Labs CBC & Chem 7: 09/27/16 08:27 09/27/16 08:27 Labs: Laboratory Results - last 24 hr 09/26/16 09/26/16 09/26/16 10:57 15:15 15:35 WBC RBC Hgb Hct MCV MCH MCHC RDW Plt Count MPV Immature Gran % Seg Neutrophils % Lymphocytes % Monocytes % Eosinophils % Basophils % Neutrophils # Lymphocytes # Monocytes # Eosinophils # Basophils # Smudge Cells Toxic Granulation Platelet Estimate Polychromasia Anisocytosis Microcytosis Macrocytosis ABG pH 7.30 L ABG pCO2 65 H ABG pO2 125 H ABG HCO3 32.0 H ABG Total CO2 34.0 H ABG O2 Saturation 98 ABG Base Excess 4.6 H Liter Flow Blood Gas Modality NC Inspired O2 36 Sodium Potassium Chloride Carbon Dioxide BUN Creatinine Est GFR ( Amer) Est GFR (Non-Af Amer) BUN/Creatinine Ratio Glucose POC Glucose 118 H 133 H Calculated Osmolality Calcium C. difficile Tox (PCR) Specimen Rejected 09/26/16 09/26/16 09/26/16 17:40 17:40 18:04 WBC RBC Hgb Hct MCV MCH MCHC RDW Plt Count MPV Immature Gran % Seg Neutrophils % Lymphocytes % Monocytes % Eosinophils % Basophils % Neutrophils # Lymphocytes # Monocytes # Eosinophils # Basophils # Smudge Cells Toxic Granulation Platelet Estimate Polychromasia Anisocytosis Microcytosis Macrocytosis ABG pH 7.33 ABG pCO2 57 H ABG pO2 89 ABG HCO3 30.1 H ABG Total CO2 31.8 H ABG O2 Saturation 96 ABG Base Excess 3.4 H Liter Flow 4 Blood Gas Modality NC Inspired O2 36 Sodium Potassium Chloride Carbon Dioxide BUN Creatinine Est GFR ( Amer) Est GFR (Non-Af Amer) BUN/Creatinine Ratio Glucose POC Glucose Calculated Osmolality Calcium C. difficile Tox (PCR) TNP Specimen Rejected Not Liquid 02/09/27/16 09/27/16 20:06 07:21 08:27 WBC 10.6 RBC 3.55 L Hgb 9.6 L D Hct 33.8 L MCV 95.2 MCH 27.0 L MCHC 28.4 L RDW 16.9 H Plt Count 171 MPV 11.0 Immature Gran % 15.2 H Seg Neutrophils % 76.9 Lymphocytes % 4.4 Monocytes % 1.2 Eosinophils % 0.0 Basophils % 2.3 Neutrophils # 8.2 Lymphocytes # 0.5 L Monocytes # 0.1 Eosinophils # 0.0 Basophils # 0.2 Smudge Cells Present A Toxic Granulation Present A Platelet Estimate Slight Decrease L Polychromasia 1+ A Anisocytosis 1+ A Microcytosis Present A Macrocytosis Present A ABG pH ABG pCO2 ABG pO2 ABG HCO3 ABG Total CO2 ABG O2 Saturation ABG Base Excess Liter Flow Blood Gas Modality Inspired O2 Sodium Potassium Chloride Carbon Dioxide BUN Creatinine Est GFR ( Amer) Est GFR (Non-Af Amer) BUN/Creatinine Ratio Glucose POC Glucose 332 H 281 H Calculated Osmolality Calcium C. difficile Tox (PCR) Specimen Rejected 09/27/16 08:27 WBC RBC Hgb Hct MCV MCH MCHC RDW Plt Count MPV Immature Gran % Seg Neutrophils % Lymphocytes % Monocytes % Eosinophils % Basophils % Neutrophils # Lymphocytes # Monocytes # Eosinophils # Basophils # Smudge Cells Toxic Granulation Platelet Estimate Polychromasia Anisocytosis Microcytosis Macrocytosis ABG pH ABG pCO2 ABG pO2 ABG HCO3 ABG Total CO2 ABG O2 Saturation ABG Base Excess Liter Flow Blood Gas Modality Inspired O2 Sodium 140 Potassium 4.9 H Chloride 102 Carbon Dioxide 29 BUN 23 Creatinine 1.47 H Est GFR ( Amer) 57 L Est GFR (Non-Af Amer) 47 L BUN/Creatinine Ratio 16 Glucose 311 H POC Glucose Calculated Osmolality 305 H Calcium 9.1 C. difficile Tox (PCR) Specimen Rejected - ABG Interpretation ABG results: ABG ABG pH 7.33 pH Units (7.32-7.45) 09/26/16 18:04 ABG pCO2 57 mmHg (35-45) H 09/26/16 18:04 ABG pO2 89 mmHg (85-104) 09/26/16 18:04 ABG O2 Saturation 96 % (95-98) 09/26/16 18:04 PT/INR, D-dimer PT 14.1 Seconds (9.4-12.1) H 09/24/16 01:07 D-Dimer 1016 ng/mLFEU (0-500) H 09/24/16 10:24 Consult Discharge Plan - Plan Referrals: GONZALEZ,PCP [Primary Care Provider] - 10/07/16 2:30 pm (Please follow up as schedule [facility]...)
[2016-09-27] MEDS: Budesonide/Formoterol 160/4.5 MDI IH SCH ×2 (11:11→22:51)
[2016-09-27] MEDS ORDERED: *HR* Morphine 2 MG/ML SYRINGE IVP PRN (11:31)
[2016-09-27] MEDS ORDERED: Acetaminophen 325 MG TABLET PO PRN (11:38)
[2016-09-27] MEDS: GuaiFENesin Liq 200 MG/10 ML UDC PO SCH ×2 (12:01→21:54)
--- NOTE | 2016-09-27 13:18 | Internal Med Progress Note ---
Date of Encounter: 09/27/16 Time of Encounter: 10:10 - Assessment and plan (1) Acute and chronic respiratory failure with hypoxia Current Visit: Yes Status: Acute Assessment and plan: Continue O2 supplementation. Reviewed ABGs done yesterday. Patient's CO2 elevated but stable. Continue current management with Solu-Medrol, levofloxacin and duo nebs. Chest x-ray done today and reviewed. Shows improved aeration in the left infrahilar region. Patient was placed back on full code after discussion with palliative care yesterday along with other family members. High risk for complications. (2) Chronic respiratory failure with hypoxia Current Visit: Yes Status: Acute Assessment and plan: Continue O2 supplementation (3) Syncope Current Visit: Yes Status: Resolved Qualifiers: Syncope type: vasovagal syncope Qualified Code(s): R55 - Syncope and collapse (4) JONAH (acute kidney injury) Current Visit: Yes Status: Acute Assessment and plan: Creatinine slightly worse today. will monitor for now. Avoid nephrotoxic agents. (5) Anemia Current Visit: Yes Status: Acute Assessment and plan: Hemoglobin level 9.6 today. Improved. On iron replacement therapy and folic acid. Qualifiers: Anemia type: unspecified type Qualified Code(s): D64.9 - Anemia, unspecified (6) CHF (congestive heart failure) Current Visit: No Status: Chronic Assessment and plan: Chronic diastolic congestive heart failure. Not in acute exacerbation Qualifiers: Congestive heart failure type: diastolic Congestive heart failure chronicity: chronic Qualified Code(s): I50.32 - Chronic diastolic (congestive ) heart failure (7) COPD (chronic obstructive pulmonary disease) Current Visit: Yes Status: Chronic Assessment and plan: Likely end-stage. Continue supportive care with O2 supplementation. On IV steroids. Also on Levaquin. On bronchodilator nebs Qualifiers: COPD type: emphysema Emphysema type: panlobular Qualified Code(s): J43.1 - Panlobular emphysema (8) DVT prophylaxis Current Visit: Yes Status: Acute (9) Diarrhea Current Visit: Yes Status: Chronic Assessment and plan: This has improved Qualifiers: Diarrhea type: unspecified type Qualified Code(s): R19.7 - Diarrhea, unspecified (10) Elevated troponin Current Visit: Yes Status: Acute (11) Hyperkalemia Current Visit: Yes Status: Resolved (12) Pulmonary hypertension, secondary Current Visit: Yes Status: Chronic Assessment and plan: On O2 supplementation. Follow up with pulmonology as outpatient (13) Pneumonia Current Visit: Yes Status: Acute Assessment and plan: Blood cultures have been negative. On Levofloxacin. Chest x-ray shows improving infiltrate. Qualifiers: Pneumonia type: due to unspecified organism Laterality: right Lung location: middle lobe of lung Qualified Code(s): J18.1 - Lobar pneumonia, unspecified organism - Subjective Interval history: Patient is awake and alert. Feels better compared to yesterday. Continues to have some difficulty breathing. No chest pain. No diarrhea. No nausea or vomiting. Complaining of leg pain which is chronic for him. - Constitutional Vitals: Temp Pulse Resp BP Pulse Ox 97.6 F 90 18 94/56 100 09/27/16 11:13 09/27/16 11:13 09/27/16 11:13 09/27/16 11:13 09/27/16 11:13 General appearance: Present: cooperative, mild distress, A&O X 3, no acute distress, answers questions appropriately - Respiratory Respiratory exam: Present: CTAB. Absent: accessory muscle use, rales, rhonchi, wheezes - Cardiovascular Cardiovascular exam: Present: RRR, +S1, +S2. Absent: diastolic murmur, gallop, rubs, systolic murmur - Extremities Exam Extremities exam: Present: warm, radial pulses palpable and symetrical. Absent : calf tenderness, cyanotic, pedal edema, tenderness - Neurological Exam Neurological exam: Present: alert, oriented X3, no focal deficits. Absent: facial droop, speech deficit Internal Medicine: Result - Labs CBC & Chem 7: 09/27/16 08:27 09/27/16 08:27 Labs: Short CBC 09/27/16 Range/Units 08:27 WBC 10.6 (4.3-11.1) K/mcL Hgb 9.6 L D (12.9-16.9) g/dL Hct 33.8 L (37.5-50.1) % Plt Count 171 (140-400) K/mcL Neutrophils # 8.2 (1.6-8.9) K/mcL BMP 09/27/16 08:27 Sodium 140 Potassium 4.9 H Chloride 102 Carbon Dioxide 29 BUN 23 Creatinine 1.47 H Glucose 311 H Calcium 9.1 - ABG Interpretation ABG results: ABG ABG pH 7.33 pH Units (7.32-7.45) 09/26/16 18:04 ABG pCO2 57 mmHg (35-45) H 09/26/16 18:04 ABG pO2 89 mmHg (85-104) 09/26/16 18:04 ABG O2 Saturation 96 % (95-98) 09/26/16 18:04 PT/INR, D-dimer PT 14.1 Seconds (9.4-12.1) H 09/24/16 01:07 D-Dimer 1016 ng/mLFEU (0-500) H 09/24/16 10:24 - Impressions Impressions Chest X-Ray 09/27/16 11:03 IMPRESSION: Improved aeration noted in the left infrahilar infiltrate, otherwise stable appearing chest. D/ / Brandyn Evans MD / Brandyn Evans MD Interpreting Provider: Brandyn Evans MD Consult Discharge Plan - Plan Referrals: [place],PCP [Primary Care Provider] - 10/07/16 2:30 pm (Please follow up as schedule with your [place] Primary care...) - Attending Attestation This document has been at least partially created by [employer] recognition technology by Dr. Mas. Errors in grammar, wording or other phrases may exist. If errors are found after the documentation is signed, they will be addressed individually in the addendum section of this document when appropriate.
[2016-09-27] MEDS: Loratadine 10 MG TABLET PO SCH (21:55)
[2016-09-28] MEDS: Ipratropium/Albuterol Neb 3 ML IH SCH ×4 (05:50→22:25)
[2016-09-28] MEDS: methylPREDNISolone 125 MG/2 ML VIAL IVP SCH (05:54)
[2016-09-28] MEDS: *HR* Heparin 5,000 UNIT/ML VIAL SQ SCH ×2 (05:54→20:05)
[2016-09-28 06:22] LABS: Hematocrit 27.5 % (37.5-50.1); Hemoglobin 7.7 g/dL (12.9-16.9); Lymphocytes # 0.3 K/mcL (0.6-4.6); Mean Corpuscular Hemoglobin 26.3 pg (28.0-33.3); Mean Corpuscular Volume 93.9 fL (83.0-100.0); Mean Platelet Volume 10.5 fL (9.4-12.4); Platelet Count 182 K/mcL (140-400); Red Blood Count 2.93 M/mcL (4.19-5.50)
[2016-09-28 06:29] LABS: BUN/Creatinine Ratio 23 (6-26); Blood Urea Nitrogen 30 mg/dL (8-26); Calcium 8.9 mg/dL (8.6-10.8); Carbon Dioxide 32 mEq/L (19-29); Chloride 102 mEq/L (98-109); Glucose 174 mg/dL (70-99); Osmolality,Calculated 302 (280-300); Sodium 141 mEq/L (136-145); eGFR For African Americans > 60 (> 60); eGFR For Non-African Americans 54 (> 60)
[2016-09-28 06:31] LABS: Potassium 5.2 mEq/L (3.5-4.5)
[2016-09-28 06:46] LABS: Hypochromasia Present (Not Present); Microcytosis Present (Not Present); Monocytes # 0.3 K/mcL (0.0-1.3); Neutrophils # 6.8 K/mcL (1.6-8.9)
[2016-09-28 06:47] LABS: Platelet Estimate Normal (Normal)
[2016-09-28] MEDS: Fluticasone Propionate Nasal 50 MCG/SPRAY BOTTLE NS SCH (08:29)
[2016-09-28] MEDS: Insulin DETEMIR 100 UNIT/ML X5UNITS SQ SCH ×2 (08:29→20:04)
[2016-09-28] MEDS: Insulin LISPRO 300 UNITS/3 ML VIAL SQ SCH ×4 (08:30→20:04)
[2016-09-28] MEDS: Finasteride 5 MG TABLET PO SCH (08:30)
[2016-09-28] MEDS: Folic Acid 1 MG TABLET PO SCH (08:30)
--- NOTE | 2016-09-28 10:51 | Internal Med Progress Note ---
Date of Encounter: 09/28/16 Time of Encounter: 10:30 - Assessment and plan (1) Acute and chronic respiratory failure with hypoxia Current Visit: Yes Status: Acute Assessment and plan: secondary to PNA, COPD exacerbation, advanced COPD. Patient on 4L NC daytime and BIPAP at bedtime at home (BIPAP 16/10, bleed 5L, RR 15). His functional capacity is very poor at home, he stays in bed all the time. 09/24: CT chest showed patchy airspace opacities in RML, mild left posterior opacities in LLL. An ill defined spiculated nodule in RLL. 09/27: CXR shows improved aeration in left upper hilar infiltrate 09/28: Patient states he is going home today, he complains that his breathing is worse here, he states that his BIPAP is not working and the alarm goes off all night due to low SaO2. Patient and explained in detail the severity of his COPD/emphysema, they were surprised that his COPD was so severe but they verbalize understanding and agree with the plan. Patient agrees to stay tonight. Continue O2 supplementation, at baseline duonebs change steroids to prednisone IV levaquin (total of 8 days, last dose tomorrow) Consult RT to address BIPAP setting at bedtime, ABG in AM. (2) COPD exacerbation Current Visit: Yes Status: Acute Assessment and plan: plan as above (3) Pneumonia Current Visit: Yes Status: Acute Assessment and plan: bacterial PNA plan as above Qualifiers: Pneumonia type: due to unspecified organism Laterality: right Lung location: middle lobe of lung Qualified Code(s): J18.1 - Lobar pneumonia, unspecified organism (4) JONAH (acute kidney injury) Current Visit: Yes Status: Acute Assessment and plan: Improved from admission. Received 1L NS. Likely, there is a component of CKD 3. Avoid nephrotoxic agents. close monitoring of BMP (5) Right-sided heart failure Current Visit: Yes Status: Acute Assessment and plan: Cor pulmonale with pulmonary hypertension. poor oral intake. will hold on lasix. (6) Pulmonary hypertension, secondary Current Visit: Yes Status: Chronic Assessment and plan: secondary to advance COPD. treat cOPD (7) Type 2 diabetes mellitus Current Visit: Yes Status: Acute Assessment and plan: levemir bid insulin sliding scale. episode of hyperglycemia due to IV steroids. change steroids to po. Qualifiers: Diabetes mellitus complication status: without complication Diabetes mellitus intermission coordinator insulin use: without alf use Qualified Code(s): E11.9 - Type 2 diabetes mellitus without complications (8) Anemia Current Visit: Yes Status: Acute Assessment and plan: chronic anemia due to chronic disease (COPD). Hb stable in the 7s. On iron replacement therapy and folic acid. Qualifiers: Anemia type: unspecified type Qualified Code(s): D64.9 - Anemia, unspecified - Subjective Interval history: Patient states he is going home today, he complains that his breathing is better at night time compared when he was at home because his BIPAP at bedtime is not working and the alarm goes off due to low SaO2. - Constitutional Vitals: Temp Pulse Resp BP Pulse Ox 97.6 F 74 18 123/70 96 09/28/16 08:03 09/28/16 08:03 09/28/16 08:03 09/28/16 08:03 09/28/16 08:03 General appearance: Present: cooperative, mild distress, A&O X 3, no acute distress, answers questions appropriately - Eye Eye exam: Present: PERRL, sclera anicteric - Neck Neck exam general surgery: Present: supple, trachea midline. Absent: lymphadenopathy - Respiratory Respiratory exam: Present: decreased breath sounds - Cardiovascular Cardiovascular exam: Present: RRR - GI/Abdominal GI/Abdominal exam: Present: normal bowel sounds, soft. Absent: distended, tenderness - Extremities Exam Extremities exam: Absent: pedal edema - Back Exam Back exam: Absent: CVA tenderness (L), CVA tenderness (R) - Neurological Exam Neurological exam: Present: alert, oriented X3, strengths equal and symetr throughout. Absent: no focal deficits - Skin Skin exam: Absent: rash Internal Medicine: Result - Labs CBC & Chem 7: 09/28/16 05:41 09/28/16 05:41 Labs: Short CBC 09/28/16 Range/Units 05:41 WBC 8.3 (4.3-11.1) K/mcL Hgb 7.7 L D (12.9-16.9) g/dL Hct 27.5 L (37.5-50.1) % Plt Count 182 (140-400) K/mcL Neutrophils # 6.8 (1.6-8.9) K/mcL BMP 09/28/16 05:41 Sodium 141 Potassium 5.2 H Chloride 102 Carbon Dioxide 32 H BUN 30 H Creatinine 1.30 H Glucose 174 H Calcium 8.9 - ABG Interpretation ABG results: ABG ABG pH 7.33 pH Units (7.32-7.45) 09/26/16 18:04 ABG pCO2 57 mmHg (35-45) H 09/26/16 18:04 ABG pO2 89 mmHg (85-104) 09/26/16 18:04 ABG O2 Saturation 96 % (95-98) 09/26/16 18:04 PT/INR, D-dimer PT 14.1 Seconds (9.4-12.1) H 09/24/16 01:07 D-Dimer 1016 ng/mLFEU (0-500) H 09/24/16 10:24 - Impressions Impressions Chest X-Ray 09/27/16 11:03 IMPRESSION: Improved aeration noted in the left infrahilar infiltrate, otherwise stable appearing chest. D/ / Brandyn Evans MD / Brandyn Evans MD Interpreting Provider: Brandyn Evans MD Consult Discharge Plan - Plan Referrals: [place],PCP [Primary Care Provider] - 10/07/16 2:30 pm (Please follow up as schedule with your [place] Primary care...)
[2016-09-28] MEDS: Budesonide/Formoterol 160/4.5 MDI IH SCH ×2 (10:55→22:25)
[2016-09-28] MEDS: GuaiFENesin Liq 200 MG/10 ML UDC PO SCH ×2 (12:47→20:05)
[2016-09-28] MEDS: Loratadine 10 MG TABLET PO SCH (20:05)
[2016-09-29] MEDS: Ipratropium/Albuterol Neb 3 ML IH SCH (04:49)
[2016-09-29] MEDS: *HR* Heparin 5,000 UNIT/ML VIAL SQ SCH (05:50)
[2016-09-29 07:42] VITALS: BP 111/59
[2016-09-29] MEDS: Insulin LISPRO 300 UNITS/3 ML VIAL SQ SCH (07:49)
[2016-09-29] MEDS: Folic Acid 1 MG TABLET PO SCH (08:19)
[2016-09-29] MEDS: Insulin DETEMIR 100 UNIT/ML X5UNITS SQ SCH (08:19)
[2016-09-29] MEDS: Fluticasone Propionate Nasal 50 MCG/SPRAY BOTTLE NS SCH (08:19)
[2016-09-29] MEDS: Finasteride 5 MG TABLET PO SCH (08:19)
[2016-09-29] MEDS: levoFLOXacin 500 MG TABLET PO SCH (08:19)
--- NOTE | 2016-09-29 08:53 | Internal Med Progress Note ---
Date of Encounter: 09/29/16 Time of Encounter: 08:50 - Assessment and plan (1) Acute and chronic respiratory failure with hypoxia Current Visit: Yes Status: Acute Assessment and plan: secondary to PNA, COPD exacerbation, advanced COPD. Patient on 4L NC daytime and BIPAP at bedtime at home (BIPAP 16/10, bleed 5L, RR 15). His functional capacity is very poor at home, he stays in bed all the time. 09/24: CT chest showed patchy airspace opacities in RML, mild left posterior opacities in LLL. An ill defined spiculated nodule in RLL. 09/27: CXR shows improved aeration in left upper hilar infiltrate 09/28: Patient states he is going home today, he complains that his breathing is worse here, he states that his BIPAP is not working and the alarm goes off all night due to low SaO2. Patient and explained in detail the severity of his COPD/emphysema, they were surprised that his COPD was so severe but they verbalize understanding and agree with the plan. Patient agrees to stay tonight. 09/29: Patient refuses BiPAP overnight and ABG this morning. He is tolerating 4 L of oxygen well. Patient is alert and oriented 3 and states he is going home now. Poorly controlled COPD due to noncompliance with medications and BiPAP. I will discharge patient to home. Continue O2 supplementation, at baseline duonebs change steroids to prednisone IV levaquin (total of 8 days, last dose tomorrow) (2) COPD exacerbation Current Visit: Yes Status: Acute Assessment and plan: plan as above (3) Pneumonia Current Visit: Yes Status: Acute Assessment and plan: bacterial PNA plan as above Qualifiers: Pneumonia type: due to unspecified organism Laterality: right Lung location: middle lobe of lung Qualified Code(s): J18.1 - Lobar pneumonia, unspecified organism (4) JONAH (acute kidney injury) Current Visit: Yes Status: Acute (5) Right-sided heart failure Current Visit: Yes Status: Acute (6) Pulmonary hypertension, secondary Current Visit: Yes Status: Chronic (7) Type 2 diabetes mellitus Current Visit: Yes Status: Acute Qualifiers: Diabetes mellitus complication status: without complication Diabetes mellitus alf insulin use: without buttermaker helper use Qualified Code(s): E11.9 - Type 2 diabetes mellitus without complications (8) Anemia Current Visit: Yes Status: Acute Qualifiers: Anemia type: unspecified type Qualified Code(s): D64.9 - Anemia, unspecified - Subjective Interval history: Patient refused BiPAP overnight and ABG this morning. He states he wants to get out of here now. - Constitutional Vitals: Temp Pulse Resp BP Pulse Ox 97.8 F 101 17 111/59 90 L 09/29/16 07:00 09/29/16 07:00 09/29/16 07:00 09/29/16 07:00 09/29/16 07:00 General appearance: Present: cooperative, mild distress, A&O X 3, no acute distress, answers questions appropriately - ENT ENT exam: Present: mucous membranes dry - Neck Neck exam general surgery: Present: supple, trachea midline. Absent: lymphadenopathy - Respiratory Respiratory exam: Present: decreased breath sounds - Cardiovascular Cardiovascular exam: Present: RRR - GI/Abdominal GI/Abdominal exam: Present: normal bowel sounds, soft. Absent: distended, tenderness - Extremities Exam Extremities exam: Absent: pedal edema - Back Exam Back exam: Absent: CVA tenderness (L), CVA tenderness (R) - Neurological Exam Neurological exam: Present: alert, oriented X3, no focal deficits, strengths equal and symetr throughout. Absent: facial droop, speech deficit - Skin Skin exam: Absent: rash Internal Medicine: Result - Labs CBC & Chem 7: 09/28/16 05:41 09/28/16 05:41 - ABG Interpretation ABG results: ABG ABG pH 7.33 pH Units (7.32-7.45) 09/26/16 18:04 ABG pCO2 57 mmHg (35-45) H 09/26/16 18:04 ABG pO2 89 mmHg (85-104) 09/26/16 18:04 ABG O2 Saturation 96 % (95-98) 09/26/16 18:04 PT/INR, D-dimer PT 14.1 Seconds (9.4-12.1) H 09/24/16 01:07 D-Dimer 1016 ng/mLFEU (0-500) H 09/24/16 10:24 - Impressions Impressions Chest CT 09/24/16 10:44 IMPRESSION: 1. Patchy airspace opacity anteriorly in the right middle lobe, concerning for pneumonia. Mild patchy opacities posteriorly in the left lower lobe may represent pneumonia or atelectasis. 2. An 8 mm ill-defined spiculated nodule in the superior segment of the right lower lobe. Follow-up per guidelines below. 3. Mild mediastinal lymphadenopathy, which could be reactive. 4. Coronary atherosclerosis. 5. Severe emphysema. Scattered areas of scarring throughout both lungs. RECOMMENDATIONS: Fleischner Society guidelines for follow-up and management of pulmonary nodules: Nodule size equals 6-8 mm In a low-risk patient, initial follow-up CT at 6-12 months then at 18-24 months if no change. In a high-risk patient, initial follow-up CT at 3-6 months then at 9-12 months and 24 months if no change. Nodule size greater than 8 mm In low-risk and high-risk patients follow-up CT at around 3, 9, and 24 months, contrast-enhanced CT, PET, and/or biopsy. Low risk patients include individuals with minimal or absent history of smoking and other known risk factors. High risk patients include individuals with a history of smoking or other known risk factors. Radiology 2005; [id number] D/ / 09/24/2016 14:04:10 Jayro Baxter MD / [email or web address] Interpreting Provider: Jayro Baxter MD Consult Discharge Plan - Plan Referrals: [facility],PCP [Primary Care Provider] - 10/07/16 2:30 pm (Please follow up as schedule with your [place] Primary care...)
--- NOTE | 2016-09-29 08:56 | Discharge Summary ---
Date of Encounter: 09/29/16 Time of Encounter: 08:50 - Discharge Diagnosis (1) Acute and chronic respiratory failure with hypoxia Priority: Primary Status: Acute (2) COPD exacerbation Priority: Primary Status: Acute (3) Pneumonia Priority: Primary Status: Acute Qualifiers: Pneumonia type: due to unspecified organism Laterality: right Lung location: middle lobe of lung Qualified Code(s): J18.1 - Lobar pneumonia, unspecified organism (4) JONAH (acute kidney injury) Priority: Primary Status: Acute (5) Lung nodule Priority: Secondary Status: Chronic (6) Right-sided heart failure Priority: Secondary Status: Chronic (7) Pulmonary hypertension, secondary Priority: Secondary Status: Chronic (8) Type 2 diabetes mellitus Priority: Secondary Status: Chronic Qualifiers: Diabetes mellitus complication status: without complication Diabetes mellitus snf insulin use: without snf use Qualified Code(s): E11.9 - Type 2 diabetes mellitus without complications (9) Anemia Priority: Secondary Status: Chronic Qualifiers: Anemia type: unspecified type Qualified Code(s): D64.9 - Anemia, unspecified - Discharge Medications Prescriptions: PredniSONE 30 mg PO DAILY #3 tablet Home Medications: Acetaminophen [Tylenol] 325 mg PO Q6HR PRN 09/23/16 [History] Albuterol Sulfate [Albuterol Inhaler] 2 puff IH Q4H PRN 09/23/16 [History] Atorvastatin Calcium [Lipitor] 20 mg PO HS 09/23/16 [History] Budesonide/Formoterol 160/4.5 [Symbicort 160/4.5] 2 puff IH BIDR 09/23/16 [ History] Cetirizine HCl [All Day Allergy] 10 mg PO HS 09/23/16 [History] Docusate [Colace] 200 mg PO DAILY 09/23/16 [History] Epoetin Nathanael [Epogen] 6,000 unit IJ QWEEK 09/23/16 [History] Ferrous Sulfate 325 mg PO DAILY 09/23/16 [History] Finasteride [Proscar] 5 mg PO DAILY 09/23/16 [History] Fluticasone Propionate Nasal [Flonase] 50 mcg NS DAILY 09/23/16 [History] GuaiFENesin/Dextromethorphan [Robitussin/Dm] 10 ml PO Q4H PRN 09/23/16 [History] Guaifenesin [Mucus Relief] 400 mg PO Q12H 09/23/16 [History] Magnesium Hydroxide [Milk of Magnesia] 1,200 mg PO DAILY PRN 09/23/16 [History] Naproxen [Naprosyn] 500 mg PO BID 09/23/16 [History] Trospium Chloride 20 mg PO BID 09/23/16 [History] Ipratropium/Albuterol Neb [Duoneb] 3 ml IH Q4HR #0 09/29/16 [Rx] PredniSONE 30 mg PO DAILY #3 tablet 09/29/16 [Rx] Allergies/Adverse Reactions: Allergies gabapentin Allergy (Verified 09/23/16 15:04) See Comments mushroom Allergy (Verified 09/23/16 15:04) See Comments pregabalin Allergy (Verified 09/23/16 15:04) See Comments Date of admission: 09/24/16 00:12 Primary care physician: PCP GONZALEZ Consults: 09/26/16 08:38 Consult to Palliative Care [CONS] Routine Comment: Consulting Provider: Palliative Care [facility] Consult to Palliative Care [CONS] Routine Comment: Consulting Provider: Pall[facility] 09/26/16 15:01 Consult to Game Room Attendant [CONS] Stat Reason for SW Consult: advance directives and MPOA - Patient Status Disposition: Home Health Service Condition: Good Functional capacity at discharge: bed bound Overall status at discharge: patient is progressing back to baseline - Discharge Instructions Follow Up With: GONZALEZ,PCP [Primary Care Provider] - 10/07/16 2:30 pm (Please follow up as schedule with your [place] Primary care...) - Diet and Activity Activity: wear oxygen at all times (4L NC) Diet: low fat, low cholesterol Interval History: Patient refused BiPAP overnight and ABG this morning. Patient states he wants to get out of here now Hospital course: Mr. Leiva is a 71 year old male with past medical history of COPD, chronic respiratory failure on 4 L daytime and BiPAP at bedtime (BIPAP 16/10, bleed 5L, RR 15), cor pulmonale, diabetes mellitus, chronic anemia. He presented with a chief complaint of worsening shortness of breath and productive cough. He was admitted for hypoxia, community acquired pneumonia, COPD exacerbation and JOANH. He was started on IV Levaquin, DuoNeb, IV glucocorticoids and IV fluids. He completed a full course of 8 days of IV Levaquin inpatient. Patient refused BiPAP at bedtime during this hospitalization and we could not titrate his BiPAP setting for home. 09/24: CT chest showed patchy airspace opacities in RML, mild left posterior opacities in LLL. An ill defined spiculated nodule in RLL. 09/27: CXR shows improved aeration in left upper hilar infiltrate Patient and were explained in detail the severity of the patient's COPD/ emphysema, they were surprised that his COPD was so severe but they verbalize understanding and agree with the plan. Patient's symptoms improved minimally during this hospitalization but this is likely secondary to advanced COPD. At home patient is bedridden for at least 4 years. PLAN[facility] RLL nodule. Patient was instructed to use duo nebs every 4 hours at home. Consider palliative consultation as outpatient. 3 days of prednisone were given. - Time Spent with Patient Total time spent providing and/or coordinating discharge services: - Constitutional Vitals: Temp Pulse Resp BP Pulse Ox 97.8 F 101 17 111/59 90 L 09/29/16 07:00 09/29/16 07:00 09/29/16 07:00 09/29/16 07:00 09/29/16 07:00 General appearance: Present: cooperative, mild distress, A&O X 3, no acute distress, answers questions appropriately - Eye Eye exam: Present: PERRL, sclera anicteric - ENT ENT exam: Present: mucous membranes moist - Neck Neck exam general surgery: Present: supple, trachea midline. Absent: lymphadenopathy - Respiratory Respiratory exam: Present: decreased breath sounds - Cardiovascular Cardiovascular exam: Present: RRR - GI/Abdominal GI/Abdominal exam: Present: normal bowel sounds, soft. Absent: distended, tenderness - Extremities Exam Extremities exam: Absent: pedal edema - Back Exam Back exam: Absent: CVA tenderness (L), CVA tenderness (R) - Neurological Exam Neurological exam: Present: alert, oriented X3, no focal deficits, strengths equal and symetr throughout. Absent: facial droop, speech deficit - Skin Skin exam: Absent: rash
[2016-09-29 08:57] LABS: BUN/Creatinine Ratio 30 (6-26); Blood Urea Nitrogen 36 mg/dL (8-26); Calcium 8.9 mg/dL (8.6-10.8); Carbon Dioxide 34 mEq/L (19-29); Chloride 100 mEq/L (98-109); Glucose 81 mg/dL (70-99); Osmolality,Calculated 301 (280-300); Potassium 4.7 mEq/L (3.5-4.5); Sodium 142 mEq/L (136-145); eGFR For African Americans > 60 (> 60); eGFR For Non-African Americans 59 (> 60)
[2016-09-29] MEDS ORDERED: predniSONE 20 MG TABLET PO SCH (09:00)
--- NOTE | 2016-09-29 09:19 | Physician Discharge Referral ---
Home Health/Hosp Referral Info Transfer to: Home Health Attending Provider: daphne Provider in Charge Post Discharge: PCP - Diagnosis (1) Acute and chronic respiratory failure with hypoxia Status: Acute (2) COPD exacerbation Status: Acute (3) Pneumonia Status: Acute (4) JONAH (acute kidney injury) Status: Acute (5) Right-sided heart failure Status: Chronic (6) Pulmonary hypertension, secondary Status: Chronic (7) Type 2 diabetes mellitus Status: Chronic (8) Anemia Status: Chronic - Respiratory Orders Oxygen / L per min (4L NC at daytime. BIPAP at nighttime and duirng naps) Smoking Cessation: Smoking cessation has been advised. For more information, call the [place] Tobacco Quit Line at 6-314-KCXN-NOW. - Diet/Nutrition Diet/Nutrition Orders: Cardiac - Activity Activity Orders: Bedrest - Services Needed Following services are medically necessary services: Nursing, Home Health Aide, Physical Therapy, Occupational Therapy Other Treatments: BIPAP setting study at home. - Transfer Medications Prescriptions: PredniSONE 30 mg PO DAILY #3 tablet Home Medications: Acetaminophen [Tylenol] 325 mg PO Q6HR PRN 09/23/16 [History] Albuterol Sulfate [Albuterol Inhaler] 2 puff IH Q4H PRN 09/23/16 [History] Atorvastatin Calcium [Lipitor] 20 mg PO HS 09/23/16 [History] Budesonide/Formoterol 160/4.5 [Symbicort 160/4.5] 2 puff IH BIDR 09/23/16 [ History] Cetirizine HCl [All Day Allergy] 10 mg PO HS 09/23/16 [History] Docusate [Colace] 200 mg PO DAILY 09/23/16 [History] Epoetin Nathanael [Epogen] 6,000 unit IJ QWEEK 09/23/16 [History] Ferrous Sulfate 325 mg PO DAILY 09/23/16 [History] Finasteride [Proscar] 5 mg PO DAILY 09/23/16 [History] Fluticasone Propionate Nasal [Flonase] 50 mcg NS DAILY 09/23/16 [History] GuaiFENesin/Dextromethorphan [Robitussin/Dm] 10 ml PO Q4H PRN 09/23/16 [History] Guaifenesin [Mucus Relief] 400 mg PO Q12H 09/23/16 [History] Magnesium Hydroxide [Milk of Magnesia] 1,200 mg PO DAILY PRN 09/23/16 [History] Naproxen [Naprosyn] 500 mg PO BID 09/23/16 [History] Trospium Chloride 20 mg PO BID 09/23/16 [History] Ipratropium/Albuterol Neb [Duoneb] 3 ml IH Q4HR #0 09/29/16 [Rx] PredniSONE 30 mg PO DAILY #3 tablet 09/29/16 [Rx] Allergies/Adverse Reactions: Allergies gabapentin Allergy (Verified 09/23/16 15:04) See Comments mushroom Allergy (Verified 09/23/16 15:04) See Comments pregabalin Allergy (Verified 09/23/16 15:04) See Comments Certification: Further, I certify that my clinical findings support that this patient is homebound (i.e. absences from home require considerable and taxing effort and are for medical reasons or caodaism services or infrequently or short duration when for other reasons) because: Homebound Reason: Patient requires assistance of a person or device to safely leave home, Leaving home requires considerable and taxing effort due to condition, Severity of cardiac or pulmonary status limits activity tolerance Attestation: My signature below is to certify that this patient is under my care and that I, or nurse practitioner, or a physician's pharmacy innovation assistant working with me, has a face-to -face encounter with this patient.
== END 2016-09-29 11:00 | disposition home health service (06) | DRG 682 ==
LOC: 2ANU 14:52 → EMEROO 14:52 → 2ANU 18:00 → SUATTDRO 09-24 00:12
PROVIDERS: ADMIT Internal Medicine; ATTEND Internal Medicine

== ENCOUNTER 2018-08-15 09:50 | Inpatient (IN) ==
--- NOTE | 2018-08-15 09:55 | Emergency Department Note ---
Disposition Clinical Impression: Acute exacerbation of chronic obstructive airways disease, Type 2 diabetes mellitus, Sepsis, Renal insufficiency, Anemia, Frail elderly, Acute febrile illness, Confusion, History of dementia Disposition: Admitted As Inpatient [facility] Care Provider[facility] - General Adult HPI - General Stated complaint: COPD/ [place] Time Seen by Provider: 08/15/18 09:52 - History of Present Illness HPI Narrative: 73-year-old male with a history of COPD and continual 3 L oxygen requirement comes in from home with his via EMS, there is concern for shortness of breath which is been progressive for the last several days. He is taking antibiotics. The patient's describes decreased levels of consciousness today. No falls or injuries. There is been no difficulty moving the arms or legs independently no unilateral arm or leg weakness or numbness. There is no history of vomiting diarrhea abdominal pain syncope or acute chest pain. No coughing up blood or high fevers reported. The patient is currently not anticoagulated but does have a history of CHF per the patient's . 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 - Related Data Home Medications Medication Instructions Recorded Confirmed RX: Acetaminophen [Tylenol] 325 mg PO Q6HR PRN 09/23/16 09/23/16 RX: Albuterol Sulfate [Albuterol 2 puff IH Q4H PRN 09/23/16 09/23/16 Inhaler] RX: Atorvastatin Calcium [Lipitor] 20 mg PO HS 09/23/16 09/23/16 RX: Budesonide/Formoterol 160/4.5 2 puff IH BIDR 09/23/16 09/23/16 [Symbicort 160/4.5] RX: Cetirizine HCl [All Day 10 mg PO HS 09/23/16 09/23/16 Allergy] RX: Docusate [Colace] 200 mg PO DAILY 09/23/16 09/23/16 RX: Epoetin Nathanael [Epogen] 6,000 unit IJ QWEEK 09/23/16 09/23/16 RX: Ferrous Sulfate 325 mg PO DAILY 09/23/16 09/23/16 RX: Finasteride [Proscar] 5 mg PO DAILY 09/23/16 09/23/16 RX: Fluticasone Propionate Nasal 50 mcg NS DAILY 09/23/16 09/23/16 [Flonase] RX: Magnesium Hydroxide [Milk of 1,200 mg PO DAILY PRN 09/23/16 09/23/16 Magnesia] RX: Naproxen [Naprosyn] 500 mg PO BID 09/23/16 09/23/16 RX: Trospium Chloride 20 mg PO BID 09/23/16 09/23/16 Previous Rx's Medication Instructions Recorded RX: Ipratropium/Albuterol Neb 3 ml IH Q4HR #0 09/29/16 [Duoneb] Allergies Allergy/AdvReac Type Severity Reaction Status Date / Time gabapentin Allergy See Verified 09/23/16 15:04 Comments mushroom Allergy See Verified 09/23/16 15:04 Comments pregabalin Allergy See Verified 09/23/16 15:04 Comments All systems ED: reviewed and negative except as stated. (The patient's provides most of the history.) Constitutional: Denies: fever, chills, weakness, weight change Eyes: Denies: eye pain, eye discharge, vision change ENT ED: Denies: ear pain, throat pain, dental pain, hearing loss, epistaxis, congestion, dysphagia Cardiovascular: Denies: chest pain, palpitations, dyspnea on exertion, edema, syncope Respiratory: Denies: cough, dyspnea, wheezes, hemoptysis, stridor Gastrointestinal: Denies: abdominal pain, nausea, vomiting, diarrhea, constipation, hematemesis, melena, hematochezia Genitourinary: Denies: urgency, dysuria, frequency, hematuria Musculoskeletal: Denies: back pain, neck pain, arthralgia, myalgia Integumentary: Denies: rash, abrasion, lesions Neurological: Denies: headache, weakness, numbness, paresthesias, confusion, abnormal gait, vertigo Psychiatric: Denies: anxiety, depression, suicidal thoughts, homicidal thoughts, auditory hallucinations, visual hallucinations Endocrine: Denies: fatigue Hematological/Lymphatic: Denies: easy bleeding, easy bruising Allergic/Immunologic: Denies: facial swelling, urticaria Past Medical History - Past Medical History Medical history: Reports: COPD, dementia, diabetes Psychiatric history: Reports: depression, PTSD - Social History Smoking Status: Never smoker Alcohol use: Reports: none Drug use: Reports: none Physical Exam - General Limitations: altered mental status General appearance: alert, in no apparent distress - Head Head exam: atraumatic, normocephalic, normal inspection - Eye Eye exam: Present: normal appearance, PERRL, EOMI. Absent: scleral icterus - Expanded Eye Exam Pupils: Left: reactive - ENT ENT exam: normal exam, normal oropharynx, mucous membranes moist, TM's normal bilaterally, normal external ear exam - Expanded ENT Exam External ear exam: Present: normal external inspection Mouth exam: Present: normal external inspection Teeth exam: Present: normal inspection Throat exam: Present: normal inspection - Neck Neck exam: Present: normal inspection, full ROM, trachea midline - Chest Chest inspection: Present: normal inspection, symmetric chest wall rise - Respiratory Respiratory exam: Present: wheezes, prolonged expiratory phase. Absent: respiratory distress, stridor - Cardiovascular Cardiovascular exam: Present: normal rhythm, tachycardia - Abdominal Exam Abdominal exam: Present: soft, Non-Tender, normal bowel sounds. Absent: tenderness, distention, guarding, rebound, rigidity - Extremities Exam Extremities exam: Present: normal inspection, full ROM, normal capillary refill. Absent: tenderness, pedal edema - Expanded Upper Extremity Exam Shoulder exam: Present: normal inspection, full ROM Arm exam: Present: normal inspection, full ROM Elbow exam: Present: normal inspection, full ROM Forearm/Wrist exam: Present: normal inspection, full ROM Hand exam: Present: normal inspection, full ROM Vascular exam: Normal: capillary refill, radial pulse - Expanded Lower Extremity Exam Hip/Pelvis exam: Present: normal inspection, full ROM Upper leg exam: Present: normal inspection, full ROM Knee exam: Present: normal inspection, full ROM Lower leg exam: Present: normal inspection, full ROM Ankle exam: Present: normal inspection, full ROM Foot/toe exam: Present: normal inspection, full ROM Neurovascular/Tendon exam: Absent: motor deficit, sensory deficit, tendon deficit - Back Exam Back exam: Present: normal inspection, full ROM. Absent: tenderness, CVA tenderness (R), CVA tenderness (L), vertebral tenderness - Neurological Exam Neurological exam: Present: alert, other (The patient is able to follow basic commands but does not speak in full sentences.). Absent: motor sensory deficit - Expanded Neurological Exam Patient oriented to: Present: person, place, time Coma Scale Eye Opening: Spontaneous Coma Scale Motor Response: Obeys Commands Coma Scale Verbal Response: Oriented Coma Scale Total: 15 - Psychiatric Psychiatric exam: Present: normal affect, normal mood - Skin Skin exam: Present: warm, dry, intact, normal color Course Vital Signs Temperature 102.1 F H 08/15/18 09:56 Pulse Rate 98 08/15/18 09:56 Respiratory Rate 28 08/15/18 09:56 Blood Pressure 145/88 08/15/18 09:56 O2 Sat by Pulse Oximetry 132 08/15/18 09:56 Temperature 102.1 F H 08/15/18 09:56 Pulse Rate 98 08/15/18 09:56 Respiratory Rate 28 08/15/18 09:56 Blood Pressure 145/88 08/15/18 09:56 O2 Sat by Pulse Oximetry 132 08/15/18 09:56 Oxygen Delivery Oxygen Delivery Simple Mask Medical Decision Making - MDM Narrative Medical decision making narrative: The patient is frail and elderly and has end-stage COPD requiring oxygen, in the emergency department he was supplied with high flow oxygen and ABG showed hypercarbia, BiPAP was initiated. Solu-Medrol and a DuoNeb were given as well as a dose of Levaquin. The patient is tachycardic tachypnea febrile and has an elevated white count highly suggestive of sepsis, urinalysis negative blood culture sent, chest x-ray shows no overt pneumonia however occult pneumonia is possible. The patient is DNR CC on hospice, we consulted with social worker psychiatric who feel the patient may benefit from a hospice observation and recommended consult with the hospitalist. I feel the patient would benefit from IV fluids as well as IV antibiotics and BiPAP. The hospitalist was consulted and came to the emergency department, I reviewed the case with her and they have accepted the patient to their care. The patient is currently stable. His is agreeable to admission. The patient displays no lateralizing neurologic defects however he is somewhat confused, CT head is been ordered and is pending. Flu swab pending. - Lab Data Lab results reviewed: Yes I reviewed the patient's lab results. Result diagrams: 08/15/18 10:12 08/15/18 10:12 Lab Results 08/15/18 08/15/18 08/15/18 Range/Units 10:12 10:12 10:12 WBC 15.9 H (4.3-11.1) K/mcL RBC 3.13 L (4.19-5.50) M/mcL Hgb 9.6 L (12.9-16.9) g/dL Hct 32.5 L (37.5-50.1) % MCV 103.8 H (83.0-100.0) fL MCH 30.7 (28.0-33.3) pg MCHC 29.5 L (31.6-35.5) g/dL RDW 17.0 H (11.5-14.5) % Plt Count 194 (140-400) K/mcL MPV 10.7 (9.4-12.4) fL Immature Gran % [facility] Seg Neutrophils % 76.0 % Band Neutrophils % 14.0 H (0-4) % Lymphocytes % [facility] Monocytes % 2.0 % Eosinophils % [facility] Basophils % [facility] Metamyelocytes % 2.0 H (0) % Myelocytes % 6.0 H (0) % Neutrophils # 14.3 H (1.6-8.9) K/mcL Lymphocytes # [facility] Monocytes # 0.3 (0.0-1.3) K/mcL Eosinophils # [facility] Basophils # [facility] Nucleated RBCs/100 WBC 0.1 H (0) /100 WBC Platelet Estimate Normal (Normal) Hypochromasia Present A (Not Present) Anisocytosis 1+ A (Not Present) PT 11.1 (9.4-12.1) Seconds INR 1.0 APTT 27.1 (26.0-36.0) Seconds Sample Site ABG pH (7.32-7.45) pH Units ABG pCO2 (35-45) mmHg ABG pO2 (85-104) mmHg ABG HCO3 (21-27) mEq/L ABG Total CO2 (20-26) mEq/L ABG O2 Saturation (95-98) % ABG Base Excess (-2 to 3) mEq/L O2 Delivery Device Inspired O2 (1-15=lpm [id number]=%) Sodium 142 (136-145) mEq/L Potassium 4.5 (3.5-5.1) mEq/L Chloride 99 (98-107) mEq/L Carbon Dioxide 32 H (23-29) mEq/L BUN 27 H (8-23) mg/dL Creatinine 1.32 H (0.70-1.30) mg/dL Est GFR ( Amer) > 60 (> 60) Est GFR (Non-Af Amer) 53 L (> 60) BUN/Creatinine Ratio 20 (6-26) Glucose 176 H (70-105) mg/dL Calculated Osmolality 303 H (280-300) Lactic Acid (0.5-2.2) mmol/L Calcium 9.5 (8.6-10.3) mg/dL Total Bilirubin 0.3 (0.3-1.0) mg/dL Direct Bilirubin 0.0 (0.0-0.2) mg/dL Indirect Bilirubin 0.3 (0.0-1.2) mg/dL AST 15 (13-39) Units/L ALT 13 (7-52) Units/L Alkaline Phosphatase 62 (34-104) Units/L Troponin I 0.03 (< 0.04) ng/mL B-Natriuretic Peptide (Less than 100) pg/mL Serum Total Protein 7.5 (6.4-8.9) g/dL Albumin 3.8 (3.5-5.7) g/dL Globulin 3.7 H (2.4-3.5) g/dL Albumin/Globulin Ratio 1.0 L (1.1-2.2) Urine Color (Yellow) Urine Clarity (Clear) Urine pH (5.0-8.0) pH Units Ur Specific [place] (1.010-1.025) Urine Protein (Neg-Trace) mg/dL Urine Glucose (UA) (Normal) mg/dL Urine Ketones (Negative) mg/dL Urine Blood (Negative) Urine Nitrite (Negative) Urine Bilirubin (Negative) Urine Urobilinogen (Normal) mg/dL Ur Leukocyte Esterase (Negative) Urine Microscopic RBC (0-3) per hpf Urine Microscopic WBC (0-3) per hpf Ur Squamous Epith Cells (None-Few) per lpf Urine Bacteria (None-Few) per hpf Hyaline Casts (None-Few) per lpf Ur Culture Indicated? (NO) 08/15/18 08/15/18 08/15/18 Range/Units 10:12 10:12 10:48 WBC (4.3-11.1) K/mcL RBC (4.19-5.50) M/mcL Hgb (12.9-16.9) g/dL Hct (37.5-50.1) % MCV (83.0-100.0) fL MCH (28.0-33.3) pg MCHC (31.6-35.5) g/dL RDW (11.5-14.5) % Plt Count (140-400) K/mcL MPV (9.4-12.4) fL Immature Gran % Seg Neutrophils % % Band Neutrophils % (0-4) % Lymphocytes % Monocytes % % Eosinophils % Basophils % Metamyelocytes % (0) % Myelocytes % (0) % Neutrophils # (1.6-8.9) K/mcL Lymphocytes # Monocytes # (0.0-1.3) K/mcL Eosinophils # Basophils # Nucleated RBCs/100 WBC (0) /100 WBC Platelet Estimate (Normal) Hypochromasia (Not Present) Anisocytosis (Not Present) PT (9.4-12.1) Seconds INR APTT (26.0-36.0) Seconds Sample Site L Radial ABG pH 7.33 (7.32-7.45) pH Units ABG pCO2 70 H* (35-45) mmHg ABG pO2 238 H (85-104) mmHg ABG HCO3 37 H (21-27) mEq/L ABG Total CO2 39 H (20-26) mEq/L ABG O2 Saturation 100 H (95-98) % ABG Base Excess 9 H (-2 to 3) mEq/L O2 Delivery Device AeroMask Inspired O2 9.0 (1-15=lpm [id number]=%) Sodium (136-145) mEq/L Potassium (3.5-5.1) mEq/L Chloride (98-107) mEq/L Carbon Dioxide (23-29) mEq/L BUN (8-23) mg/dL Creatinine (0.70-1.30) mg/dL Est GFR ( Amer) (> 60) Est GFR (Non-Af Amer) (> 60) BUN/Creatinine Ratio (6-26) Glucose (70-105) mg/dL Calculated Osmolality (280-300) Lactic Acid 1.8 (0.5-2.2) mmol/L Calcium (8.6-10.3) mg/dL Total Bilirubin (0.3-1.0) mg/dL Direct Bilirubin (0.0-0.2) mg/dL Indirect Bilirubin (0.0-1.2) mg/dL AST (13-39) Units/L ALT (7-52) Units/L Alkaline Phosphatase (34-104) Units/L Troponin I (< 0.04) ng/mL B-Natriuretic Peptide 152 H (Less than 100) pg/mL Serum Total Protein (6.4-8.9) g/dL Albumin (3.5-5.7) g/dL Globulin (2.4-3.5) g/dL Albumin/Globulin Ratio (1.1-2.2) Urine Color (Yellow) Urine Clarity (Clear) Urine pH (5.0-8.0) pH Units Ur Specific [place] (1.010-1.025) Urine Protein (Neg-Trace) mg/dL Urine Glucose (UA) (Normal) mg/dL Urine Ketones (Negative) mg/dL Urine Blood (Negative) Urine Nitrite (Negative) Urine Bilirubin (Negative) Urine Urobilinogen (Normal) mg/dL Ur Leukocyte Esterase (Negative) Urine Microscopic RBC (0-3) per hpf Urine Microscopic WBC (0-3) per hpf Ur Squamous Epith Cells (None-Few) per lpf Urine Bacteria (None-Few) per hpf Hyaline Casts (None-Few) per lpf Ur Culture Indicated? (NO) 08/15/18 Range/Units 11:32 WBC (4.3-11.1) K/mcL RBC (4.19-5.50) M/mcL Hgb (12.9-16.9) g/dL Hct (37.5-50.1) % MCV (83.0-100.0) fL MCH (28.0-33.3) pg MCHC (31.6-35.5) g/dL RDW (11.5-14.5) % Plt Count (140-400) K/mcL MPV (9.4-12.4) fL Immature Gran % Seg Neutrophils % % Band Neutrophils % (0-4) % Lymphocytes % Monocytes % % Eosinophils % Basophils % Metamyelocytes % (0) % Myelocytes % (0) % Neutrophils # (1.6-8.9) K/mcL Lymphocytes # Monocytes # (0.0-1.3) K/mcL Eosinophils # Basophils # Nucleated RBCs/100 WBC (0) /100 WBC Platelet Estimate (Normal) Hypochromasia (Not Present) Anisocytosis (Not Present) PT (9.4-12.1) Seconds INR APTT (26.0-36.0) Seconds Sample Site ABG pH (7.32-7.45) pH Units ABG pCO2 (35-45) mmHg ABG pO2 (85-104) mmHg ABG HCO3 (21-27) mEq/L ABG Total CO2 (20-26) mEq/L ABG O2 Saturation (95-98) % ABG Base Excess (-2 to 3) mEq/L O2 Delivery Device Inspired O2 (1-15=lpm [id number]=%) Sodium (136-145) mEq/L Potassium (3.5-5.1) mEq/L Chloride (98-107) mEq/L Carbon Dioxide (23-29) mEq/L BUN (8-23) mg/dL Creatinine (0.70-1.30) mg/dL Est GFR ( Amer) (> 60) Est GFR (Non-Af Amer) (> 60) BUN/Creatinine Ratio (6-26) Glucose (70-105) mg/dL Calculated Osmolality (280-300) Lactic Acid (0.5-2.2) mmol/L Calcium (8.6-10.3) mg/dL Total Bilirubin (0.3-1.0) mg/dL Direct Bilirubin (0.0-0.2) mg/dL Indirect Bilirubin (0.0-1.2) mg/dL AST (13-39) Units/L ALT (7-52) Units/L Alkaline Phosphatase (34-104) Units/L Troponin I (< 0.04) ng/mL B-Natriuretic Peptide (Less than 100) pg/mL Serum Total Protein (6.4-8.9) g/dL Albumin (3.5-5.7) g/dL Globulin (2.4-3.5) g/dL Albumin/Globulin Ratio (1.1-2.2) Urine Color Yellow (Yellow) Urine Clarity Clear (Clear) Urine pH 7.0 (5.0-8.0) pH Units Ur Specific [place] 1.017 (1.010-1.025) Urine Protein 30 H (Neg-Trace) mg/dL Urine Glucose (UA) 500 H (Normal) mg/dL Urine Ketones Negative (Negative) mg/dL Urine Blood Negative (Negative) Urine Nitrite Negative (Negative) Urine Bilirubin Negative (Negative) Urine Urobilinogen Normal (Normal) mg/dL Ur Leukocyte Esterase Negative (Negative) Urine Microscopic RBC 0-3 (0-3) per hpf Urine Microscopic WBC 0-3 (0-3) per hpf Ur Squamous Epith Cells Moderate H (None-Few) per lpf Urine Bacteria Many H (None-Few) per hpf Hyaline Casts None Seen (None-Few) per lpf Ur Culture Indicated? NO (NO) - Radiology Data Radiology results reviewed: Yes I reviewed the patient's radiology results.
[2018-08-15] MEDS ORDERED: methylPREDNISolone 125 MG/2 ML VIAL IVP ONE (10:20)
[2018-08-15] MEDS ORDERED: Levofloxacin 750 MG/150 ML 750 MG/150 ML BAG IVPB ONE (10:24)
[2018-08-15] MEDS ORDERED: 0.9 % Sodium Chloride 1,000 ML IVC ONE (10:25)
[2018-08-15 10:27] LABS: Hematocrit 32.5 % (37.5-50.1); Hemoglobin 9.6 g/dL (12.9-16.9); Mean Corpuscular HGB Conc 29.5 g/dL (31.6-35.5); Mean Corpuscular Hemoglobin 30.7 pg (28.0-33.3); Mean Corpuscular Volume 103.8 fL (83.0-100.0); Mean Platelet Volume 10.7 fL (9.4-12.4); Nucleated Red Blood Cells 0.1 /100 WBC (0); Platelet Count 194 K/mcL (140-400); Red Blood Count 3.13 M/mcL (4.19-5.50)
[2018-08-15 10:34] LABS: Prothrombin Time 11.1 Seconds (9.4-12.1)
[2018-08-15 10:37] LABS: Activated Partial Thrombo Time 27.1 Seconds (26.0-36.0)
[2018-08-15] MEDS: Ipratropium/Albuterol Neb 3 ML IH ONE ×2 (10:37→10:38)
[2018-08-15 10:46] LABS: Neutrophils # 14.3 K/mcL (1.6-8.9)
[2018-08-15 10:47] LABS: Monocytes # 0.3 K/mcL (0.0-1.3)
[2018-08-15 10:48] LABS: Anisocytosis 1+ (Not Present); Platelet Estimate Normal (Normal)
[2018-08-15 10:49] LABS: Hypochromasia Present (Not Present)
[2018-08-15 10:51] LABS: Alanine Aminotransferase 13 Units/L (7-52); Albumin 3.8 g/dL (3.5-5.7); Alkaline Phosphatase 62 Units/L (34-104); Aspartate Amino Transferase 15 Units/L (13-39); BUN/Creatinine Ratio 20 (6-26); Bilirubin,Indirect 0.3 mg/dL (0.0-1.2); Bilirubin,Total 0.3 mg/dL (0.3-1.0); Blood Urea Nitrogen 27 mg/dL (8-23); Calcium 9.5 mg/dL (8.6-10.3); Carbon Dioxide 32 mEq/L (23-29); Chloride 99 mEq/L (98-107); Globulin 3.7 g/dL (2.4-3.5); Glucose 176 mg/dL (70-105); Osmolality,Calculated 303 (280-300); Potassium 4.5 mEq/L (3.5-5.1); Sodium 142 mEq/L (136-145); Total Protein 7.5 g/dL (6.4-8.9); Troponin I 0.03 ng/mL (< 0.04); eGFR For Non-African Americans 53 (> 60)
[2018-08-15 11:00] LABS: ABG Base Excess 9 mEq/L (-2 to 3); ABG HCO3 37 mEq/L (21-27); ABG Oxygen Saturation 100 % (95-98); ABG PCO2 70 mmHg (35-45); ABG PH 7.33 pH Units (7.32-7.45); ABG PO2 238 mmHg (85-104); ABG TCO2 39 mEq/L (20-26)
[2018-08-15] MEDS ORDERED: Acetaminophen 325 MG TABLET PO ONE (11:26)
[2018-08-15 11:50] LABS: Bilirubin,Urine Negative (Negative); Blood,Urine Negative (Negative); Clarity,Urine Clear (Clear); Color,Urine Yellow (Yellow); Glucose,Urine (UA) 500 mg/dL (Normal); Ketones,Urine Negative (Negative); Leukocyte Esterase,Urine Negative (Negative); Nitrite,Urine Negative (Negative); Protein,Urine 30 mg/dL (Neg-Trace); Specific Gravity,Urine 1.017 (1.010-1.025); Urobilinogen,Urine Normal (Normal)
[2018-08-15 11:53] LABS: Bacteria,Urine Many per hpf (None-Few); Hyaline Casts,Urine None Seen per lpf (None-Few); RBC,Urine 0-3 per hpf (0-3); Squamous Epithelial Cell,Urine Moderate per lpf (None-Few); WBC,Urine 0-3 per hpf (0-3)
[2018-08-15 12:41] LABS: Thyroid Stimulating Hormone 0.274 mcIU/mL (0.340-5.600)
--- NOTE | 2018-08-15 14:13 | Internal Med History&Physical ---
Date of Encounter: 08/15/18 Time of Encounter: 14:05 Internal Medicine - H&P: HPI Chief complaint: confusion Admitted From: Home Plans for Post Hospital Care: Hospice - Home History of present illness: Mr. Leiva is a 73 year old male who has history of COPD on 3 L nasal cannula at home, dementia diabetes presenting emergency room for worsening shortness of breasts and THE MENTAL STATUS. When I saw the patient patient is alert, he does not know place and time. He stated that he has shortness of breath denies all other questions. When I do physical examination he does complain of left low quandary and the right upper quandary tenderness, but he is unable to tell me when it started and the the quality of pain due to his dementia. Family is not at the bedside and information is obtained from the ED physician and the medical history. In ER chest x-ray showed a COPD, CT head did not show acute process, WBC 15.9 hemoglobin 9.6 ABG showed CO2 76 PO2 328 creatinine creatinine 1.3 to UA is negative for WBC, but bacteria, he has a commdon cath. In the emergency department he was supplied with high flow oxygen and ABG showed hypercarbia, BiPAP was initiated. Solu-Medrol and a DuoNeb were given as well as a dose of Levaquin. Patient has end-stage COPD DNR CC HOSPICE at home. patient will be admitted for sepsis unknown etiology, continue Levaquin, we will do CT abdomena nd pelvis for abdominal pain, COPD exacerbation Past Med Surg Social Fam HX - Past Medical History Medical history: COPD, dementia, diabetes Additional medical history: neuropathy, bph Psychiatric history: depression, PTSD - Past Surgical History Additional surgical history: lung reinflated (lung puncture), bilateral knee surgeries, hernia repair - Social History Smoking Status: Never smoker Alcohol use: none Drug use: none - Family History Mother Hx Family Endocrine Disorder: Yes (daibetes) Father Hx Family Cardiac Disorders: Yes (heart attack) Internal Medicine - H&P: Meds Acetaminophen [Tylenol] 325 mg PO Q6HR PRN 09/23/16 [History] Albuterol Sulfate [Albuterol Inhaler] 2 puff IH Q4H PRN 09/23/16 [History] Atorvastatin Calcium [Lipitor] 20 mg PO HS 09/23/16 [History] Budesonide/Formoterol 160/4.5 [Symbicort 160/4.5] 2 puff IH BIDR 09/23/16 [ History] Cetirizine HCl [All Day Allergy] 10 mg PO HS 09/23/16 [History] Docusate [Colace] 200 mg PO DAILY 09/23/16 [History] Epoetin Nathanael [Epogen] 6,000 unit IJ QWEEK 09/23/16 [History] Ferrous Sulfate 325 mg PO DAILY 09/23/16 [History] Finasteride [Proscar] 5 mg PO DAILY 09/23/16 [History] Fluticasone Propionate Nasal [Flonase] 50 mcg NS DAILY 09/23/16 [History] Magnesium Hydroxide [Milk of Magnesia] 1,200 mg PO DAILY PRN 09/23/16 [History] Naproxen [Naprosyn] 500 mg PO BID 09/23/16 [History] Trospium Chloride 20 mg PO BID 09/23/16 [History] Ipratropium/Albuterol Neb [Duoneb] 3 ml IH Q4HR #0 09/29/16 [Rx] Allergy/AdvReac Type Severity Reaction Status Date / Time gabapentin Allergy See Verified 09/23/16 15:04 Comments mushroom Allergy See Verified 09/23/16 15:04 Comments pregabalin Allergy See Verified 09/23/16 15:04 Comments All Systems PM: A 10-system review of systems was performed and is negative for pertinent findings except as documented above in the HPI. - Constitutional Vitals: Temp Pulse Resp BP Pulse Ox 99.3 F 101 20 114/81 99 08/15/18 12:55 08/15/18 12:55 08/15/18 12:55 08/15/18 12:55 08/15/18 12:55 General appearance: Present: A&O X 1, pleasant Exam: CONSTITUTIONAL: Patient appears as an age appropriate male well developed, in no acute distress. EYES Clear sclerae, bilateral pupils are equal, reactive to light and accommodation. Extraocular movements are intact RESPIRATORY: No accessory muscle use, bilateral wheezing, no crackles/rales. CARDIOVASCULAR: Regular heart rate, normal S1 and S2, no murmurs GASTROINTESTINAL: bowel sounds present, soft, no tenderness. No hepatosplenomegaly. No bilateral CVA tenderness MUSCULOSKELETAL: Joints in normal range of motion, no clubbing, no edema, no cyanosis. Bilateral peripheral pulses 2+ LYMPHATIC no lymphadenopathy in neck, groin and axilla bilaterally, no thyromegaly. NEUROLOGIC: CN II to XII are grossly intact, no focal neurological deficit. Deep tendon reflexes 2+ bilaterally. Normal light touch sensation to upper and lower extremity PSYCHIATRIC: Oriented x1, with good insight, mood is euthymic. No hallucinations or delusions. SKIN: Skin warm and dry, no rashes, no open wound. Internal Med - H&P Results - Labs CBC & Chem 7: 08/15/18 10:12 08/15/18 10:12 Labs: Short CBC 08/15/18 Range/Units 10:12 WBC 15.9 H (4.3-11.1) K/mcL Hgb 9.6 L (12.9-16.9) g/dL Hct 32.5 L (37.5-50.1) % Plt Count 194 (140-400) K/mcL Neutrophils # 14.3 H (1.6-8.9) K/mcL BMP 08/15/18 10:12 Sodium 142 Potassium 4.5 Chloride 99 Carbon Dioxide 32 H BUN 27 H Creatinine 1.32 H Glucose 176 H Calcium 9.5 Cardiac Enzymes 08/15/18 Range/Units 10:12 Troponin I 0.03 (< 0.04) ng/mL Liver Function 08/15/18 Range/Units 10:12 Total Bilirubin 0.3 (0.3-1.0) mg/dL Direct Bilirubin 0.0 (0.0-0.2) mg/dL AST 15 (13-39) Units/L ALT 13 (7-52) Units/L Alkaline Phosphatase 62 (34-104) Units/L Albumin 3.8 (3.5-5.7) g/dL Urine 08/15/18 Range/Units 11:32 Urine Color Yellow (Yellow) Urine Clarity Clear (Clear) Urine pH 7.0 (5.0-8.0) pH Units Ur Specific [place] 1.017 (1.010-1.025) Urine Protein 30 H (Neg-Trace) mg/dL Urine Glucose (UA) 500 H (Normal) mg/dL - ABG Interpretation ABG results: 08/15/18 10:48 ABG pH 7.33 ABG pCO2 70 H* ABG pO2 238 H ABG HCO3 37 H ABG Total CO2 39 H ABG O2 Saturation 100 H ABG Base Excess 9 H - Impressions ITS Impressions Head CT 08/15/18 00:00 IMPRESSION: No acute intracranial abnormality. Diffuse atrophic changes with findings suggesting chronic microvascular ischemia D/ / Pedro Sears MD / Pedro Sears MD Interpreting Provider: Pedro Sears MD Chest X-Ray 08/15/18 09:54 IMPRESSION: 1. Stable chest x-ray with no active pulmonary disease. 2. COPD with chronic inflammation. D/ / Ed Hutchinson MD / Ed Hutchinson MD Interpreting Provider: Ed Hutchinson MD - Assessment and plan (1) COPD (chronic obstructive pulmonary disease) Current Visit: No Status: Chronic Assessment and plan: Patient has diffuse bilateral wheezing, we will continue IV steroids and antibiotics continue nebulizer Qualifiers: COPD type: emphysema Emphysema type: panlobular Qualified Code(s): J43.1 - Panlobular emphysema (2) Sepsis Current Visit: Yes Status: Acute Assessment and plan: WBC 15,000, HR>90, unknown etiology, will do CT abdomen r/o abdominal process Qualifiers: Sepsis type: sepsis due to unspecified organism Qualified Code(s): A41.9 - Sepsis, unspecified organism (3) Abdominal pain Current Visit: Yes Status: Acute Assessment and plan: We will check CT scan Qualifiers: Abdominal location: generalized Qualified Code(s): R10.84 - Generalized abdominal pain (4) Anemia Current Visit: Yes Status: Chronic Qualifiers: Anemia type: unspecified type Qualified Code(s): D64.9 - Anemia, unspecified (5) Acute and chronic respiratory failure with hypoxia Current Visit: Yes Status: Acute Assessment and plan: Patient was on 3 L nasal cannula at home, currently requires high flow oxygen, BiPAP as needed, ABG shows PCO2 70 (6) Goals of care, counseling/discussion Current Visit: No Status: Acute Assessment and plan: DNR CC hospice (7) History of dementia Current Visit: Yes Status: Acute Assessment and plan: Patient has dementia (8) Type 2 diabetes mellitus Current Visit: Yes Status: Chronic Assessment and plan: He is not on medication Qualifiers: Diabetes mellitus alf insulin use: without alf use Diabetes mellitus complication status: with kidney complications Diabetes mellitus complication detail: with chronic kidney disease Chronic kidney disease stage: stage 3 (moderate) Qualified Code(s): E11.22 - Type 2 diabetes mellitus with diabetic chronic kidney disease; N18.3 - Chronic kidney disease, stage 3 (moderate) - Time Spent With Patient Total time spent is greater than 50% in coordination of care (as documented) at patient's floor/unit and/or counseling patient: Greater than 35 minutes
[2018-08-15] MEDS ORDERED: MOM Conc 10 ML UD.LIQ PO PRN (14:21)
[2018-08-15] MEDS ORDERED: Acetaminophen 325 MG TABLET PO PRN (14:21)
[2018-08-15] MEDS ORDERED: Naloxone 0.4 MG/ML INJ IVP PRN (14:23)
[2018-08-15] MEDS: Budesonide/Formoterol 160/4.5 1 PUFF INH IH SCH ×2 (15:59→20:40)
[2018-08-15] MEDS: Ipratropium/Albuterol Neb 3 ML IH SCH ×3 (15:59→23:50)
[2018-08-15] MEDS: *HR* Heparin 5,000 UNIT/ML VIAL SQ SCH ×2 (17:55→23:29)
[2018-08-15] MEDS: MethylPREDNISolone 40 MG/ML VIAL IVP SCH ×2 (17:56→23:31)
[2018-08-15] MEDS ORDERED: D5% in Water 1,000 ML IVC PRN (18:03)
[2018-08-15] MEDS ORDERED: *HR* Dextrose 50 % in Water (Syg) 50 ML SYRINGE IVP PRN (18:03)
[2018-08-15] MEDS ORDERED: Dextrose Gel 15 GM/37.5 ML TUBE PO PRN ×2 (18:03)
[2018-08-15] MEDS ORDERED: *HR* LORazepam 0.5 MG TABLET PO PRN (18:06)
[2018-08-15] MEDS ORDERED: Bisacodyl 10 MG RECTAL SUPPOSITORY RC PRN (18:06)
[2018-08-15] MEDS ORDERED: Acetaminophen 650 MG RECTAL SUPP RC PRN (18:06)
[2018-08-15] MEDS ORDERED: *HR* OxyCODONE/APAP 5/325 TABLET PO PRN (18:06)
[2018-08-15] MEDS ORDERED: MORPHINE PO PRN (18:06)
[2018-08-15] MEDS ORDERED: OLODATEROL HCL IH SCH (18:15)
[2018-08-15] MEDS ORDERED: [UNRECOGNIZED DRUG - REMARK] PO SCH (18:15)
[2018-08-15] MEDS ORDERED: *HR* Morphine Soln 10 MG/5 ML UDC PO PRN (18:30)
[2018-08-15] MEDS: Insulin LISPRO 300 UNITS/3 ML VIAL SQ SCH (18:37)
[2018-08-15] MEDS: Aspirin Enteric Coated 81 MG Tablet PO SCH (18:37)
[2018-08-15] MEDS: Furosemide 20 MG TABLET PO SCH (18:37)
[2018-08-15 19:14] LABS: Estimated Average Glucose 189 mg/dl; Hemoglobin A1C 8.2 %
[2018-08-15] MEDS ORDERED: DOXYCYCLINE HYCLATE 100 MG PO SCH (21:00)
[2018-08-15] MEDS ORDERED: Insulin LISPRO 300 UNITS/3 ML VIAL SQ SCH (21:00)
[2018-08-15] MEDS: Sennosides 8.6 MG TABLET PO SCH (21:07)
[2018-08-15] MEDS: Loratadine 10 MG TABLET PO SCH (21:08)
--- NOTE | 2018-08-15 21:28 | Electrocardiograph Report ---
[facility] Test Date: 2018-08-15 Pat Name: Jg Leiva Department: [id number] Room: 2S3 Gender: M Stretch Box Tender: : 1945 Requested By: Noe Reddy Order Number: [id number] Reading MD: Trace Philip Measurements Intervals [place] Rate: 134 P: 89 IN: 125 QRS: 90 QRSD: 83 T: -1 QT: 288 QTc: 430 Interpretive Statements Sinus tachycardia Electronically Signed On 08-15-2018 21:26:48 EST by Trace Philip
[2018-08-16] MEDS: Ipratropium/Albuterol Neb 3 ML IH SCH ×6 (03:52→23:18)
[2018-08-16 05:36] LABS: Acinetobacter baumannii by PCR Not Detected (Not Detect); Candida albicans by PCR Not Detected (Not Detect); Candida glabrata by PCR Not Detected (Not Detect); Candida krusei by PCR Not Detected (Not Detect); Candida parapsilosis by PCR Not Detected (Not Detect); Candida tropicalis by PCR Not Detected (Not Detect); Enterobacter cloacae Cmplx PCR Not Detected (Not Detect); Enterobacteriaceae by PCR Not Detected (Not Detect); Enterococcus by PCR Not Detected (Not Detect); Escherichia coli by PCR Not Detected (Not Detect); Klebsiella oxytoca by PCR Not Detected (Not Detect); Klebsiella pneumoniae by PCR Not Detected (Not Detect); Proteus by PCR Not Detected (Not Detect); Pseudomonas aeruginosa by PCR DETECTED (Not Detect); Serratia marcescens by PCR Not Detected (Not Detect); Staphylococcus aureus by PCR Not Detected (Not Detect); Staphylococcus by PCR Not Detected (Not Detect); Streptococcus agalactiae(B)PCR Not Detected (Not Detect); Streptococcus by PCR Not Detected (Not Detect); Streptococcus pneumoniae PCR Not Detected (Not Detect); Streptococcus pyogenes (A) PCR Not Detected (Not Detect); blaKPC Carbapenem-Resist Gene Not Detected (Not Detect); mecA Methicillin-Resist Gene Not Detected (Not Detect); vanA/B Vancomycin-Resist Genes Not Detected (Not Detect)
[2018-08-16 05:41] LABS: Mean Corpuscular HGB Conc 28.5 g/dL (31.6-35.5); Mean Platelet Volume 10.7 fL (9.4-12.4)
[2018-08-16 05:43] LABS: Hematocrit 27.4 % (37.5-50.1); Hemoglobin 7.8 g/dL (12.9-16.9); Mean Corpuscular Hemoglobin 30.1 pg (28.0-33.3); Mean Corpuscular Volume 105.8 fL (83.0-100.0); Platelet Count 147 K/mcL (140-400); Red Blood Count 2.59 M/mcL (4.19-5.50); Red Cell Distribution Width 16.5 % (11.5-14.5)
[2018-08-16 06:00] LABS: Calcium 8.7 mg/dL (8.6-10.3); Potassium 5.5 mEq/L (3.5-5.1)
[2018-08-16 06:10] LABS: Anisocytosis 1+ (Not Present); Hypochromasia Present (Not Present); Lymphocytes # 1.2 K/mcL (0.6-4.6); Platelet Estimate Normal (Normal)
[2018-08-16] MEDS ORDERED: Piperacillin/Tazobactam 3.375 GM in 0.9 % Sodium Chloride Mini Bag 100 ML IVPB SCH (06:59)
--- NOTE | 2018-08-16 07:01 | Event Note ---
Date of Encounter: 08/16/18 Time of Encounter: 06:59 Notified by nurse of positive blood cultures for gram negative rods - pseudomonas aeruginosa. Will add zosyn for additional coverage.
[2018-08-16] MEDS: Budesonide/Formoterol 160/4.5 1 PUFF INH IH SCH ×2 (07:35→19:52)
[2018-08-16] MEDS: Finasteride 5 MG TABLET PO SCH (07:59)
[2018-08-16] MEDS: Furosemide 20 MG TABLET PO SCH (07:59)
[2018-08-16] MEDS: MethylPREDNISolone 40 MG/ML VIAL IVP SCH ×2 (08:00→16:08)
[2018-08-16] MEDS: *HR* Heparin 5,000 UNIT/ML VIAL SQ SCH ×2 (08:00→16:08)
[2018-08-16] MEDS: Aspirin Enteric Coated 81 MG Tablet PO SCH (08:00)
[2018-08-16] MEDS: Levofloxacin 750 MG/150 ML 750 MG/150 ML BAG IVPB SCH (08:01)
[2018-08-16] MEDS: Insulin LISPRO 300 UNITS/3 ML VIAL SQ SCH ×4 (08:17→21:37)
[2018-08-16] MEDS ORDERED: NON-FORMULARY MEDICATION 1 EACH EACH (Roflumilast [Daliresp] 500 MCG) PO SCH (09:00)
[2018-08-16] MEDS ORDERED: SAXAGLIPTIN HCL 2.5 MG PO SCH (09:00)
[2018-08-16] MEDS: Sennosides 8.6 MG TABLET PO SCH ×2 (10:04→20:09)
[2018-08-16] MEDS: Fluticasone Propionate Nasal 50 MCG/SPRAY BOTTLE NS SCH (10:04)
[2018-08-16] MEDS: *HR* OxyCODONE/APAP 5/325 TABLET PO SCH ×3 (11:21→20:09)
--- NOTE | 2018-08-16 15:36 | Infectious Disease Consult ---
Date of Encounter: 08/16/18 Time of Encounter: 15:30 Assessment and Plan (1) Sepsis Status: Acute Assessment and plan: Secondary to gram-negative issa bacteremia Had 3 SIRS criteria Qualifiers: Sepsis type: sepsis due to unspecified organism Qualified Code(s): A41.9 - Sepsis, unspecified organism (2) Gram-negative bacteremia Status: Acute Assessment and plan: Blood cultures 08/15/2018 2/2 sets positive for gram-negative issa; PCR. Pseudomonas aeruginosa Source not clear Patient already on Zosyn and levofloxacin Repeat cultures have been obtained Agree with current antibiotic until susceptibility finalize Monitor labs and for drug toxicity (3) Altered mental status Status: Acute Assessment and plan: Likely secondary to metabolic encephalopathy from sepsis Qualifiers: Altered mental status type: unspecified Qualified Code(s): R41.82 - Altered mental status, unspecified (4) Dementia Status: Acute Qualifiers: Dementia type: unspecified type Dementia behavioral disturbance: without behavioral disturbance Qualified Code(s): F03.90 - Unspecified dementia without behavioral disturbance (5) Moderate to severe pulmonary hypertension Status: Acute Assessment and plan: Noted on the echocardiogram (6) COPD (chronic obstructive pulmonary disease) Status: Chronic Qualifiers: COPD type: emphysema Emphysema type: panlobular Qualified Code(s): J43.1 - Panlobular emphysema Infectious Disease HPI - Data of Consult Patient: new to practice Consult date: 08/16/18 Requesting Physician: Yogi Burrows MD [facility] - Consult Narrative History of present illness: Mr. Leiva is a 73 year old male Patient is a 73-year-old gentleman with past medical history significant for COPD, dementia, diabetes mellitus type 2 who is on home O2 nasal cannula 3 L usually presented to the emergency department with confusion. Most of the information was taken from medical records since I believe the patient was a good historian. On arrival patient was noted to have a fever of 102.1 Fahrenheit, tachycardia and tachypnea. Patient was hemodynamically stable. Presenting labs revealed WBC of 15.9 with 14% bands. BUN 27 CRP 1.32, lactic acid 1.8. Urinalysis no pyuria and no nitrites and no leukocyte esterase. Blood cultures obtained and 2 out of 2 sets on 08/15/2018 are positive for gram- negative rods and PCR take top pseudomonas aeruginosa influenza A and B were checked and came back negative Radiology: Chest x-ray stable chest x-ray with no active pulmonary disease; COPD with chronic inflammation CT abdomen and pelvis no acute process CT head diffuse atrophy changes with findings suggesting chronic microvascular ischemia Echocardiogram results noted with no mention of any valvular lesions. Patient does have mild to moderate tricuspid regurgitation and mild left ventricular diastolic dysfunction and severe pulmonary hypertension and atypical septal motion possibly due to bundle branch block Currently patient appears comfortable he is alert and oriented 4 but does not remember why he came in and what was really going on with him. Review of system is negative for any sinus pressure or runny nose sore throat. No worsening dyspnea on exertion. Nonproductive cough. No nausea no vomiting no diarrhea no constipation. No urinary symptoms. CC: Yogi Burrows MD Past Med Surg Social Fam HX - Past Medical History Medical history: COPD, dementia, diabetes Additional medical history: neuropathy, bph Psychiatric history: depression, PTSD - Past Surgical History Additional surgical history: lung reinflated (lung puncture), bilateral knee surgeries, hernia repair - Social History Smoking Status: Never smoker Alcohol use: none Drug use: none - Family History Mother Hx Family Endocrine Disorder: Yes (daibetes) Father Hx Family Cardiac Disorders: Yes (heart attack) Infectious Disease-CN:Meds Epoetin Nathanael [Epogen] 6,000 unit IJ SA 09/23/16 [History] Finasteride [Proscar] 5 mg PO DAILY 09/23/16 [History] Fluticasone Propionate Nasal [Flonase] 1 spray NS DAILY 09/23/16 [History] Trospium Chloride 20 mg PO BID 09/23/16 [History] Ipratropium/Albuterol Neb [Duoneb] 3 ml IH Q4HR #0 09/29/16 [Rx] Acetaminophen [Tylenol 650mg SUPP] 650 mg RC Q4HR PRN 08/15/18 [History] Aspirin [Adult Aspirin Regimen] 81 mg PO DAILY 08/15/18 [History] Bisacodyl [Dulcolax] 10 mg RC DAILY PRN 08/15/18 [History] Cetirizine HCl [24Hour Allergy] 5 mg PO DAILY 08/15/18 [History] DULoxetine [Cymbalta] 60 mg PO DAILY 08/15/18 [History] Doxycycline Hyclate 100 mg PO BID 08/15/18 [History] Furosemide [Lasix] 20 mg PO DAILY 08/15/18 [History] Hyoscyamine SL [Levsin Sl] 0.125 - 0.25 mg PO Q2H PRN 08/15/18 [History] LORazepam [Ativan] 0.5 mg PO Q4H PRN 08/15/18 [History] Morphine Oral CONC [Roxanol] 0.25 ml PO Q4H PRN 08/15/18 [History] Olodaterol HCl [Striverdi Respimat] 2 puff IH DAILY 08/15/18 [History] Omeprazole 20 mg PO DAILY 08/15/18 [History] OxyCODONE/APAP 5/325 [Percocet 5/325 MG] 1 each PO Q4HR PRN 08/15/18 [History] Oxygen 2 - 10 l IH DAILY 08/15/18 [History] Polyethylene Glycol 3350 [MiraLAX] 17 gm PO DAILY 08/15/18 [History] Promethazine [Phenergan] 25 mg PO Q6HR PRN 08/15/18 [History] Promethazine [Phenergan] 25 mg RC Q6HR PRN 08/15/18 [History] Roflumilast [Daliresp] 500 mcg PO DAILY 08/15/18 [History] Saxagliptin HCl [Onglyza] 2.5 mg PO DAILY 08/15/18 [History] Sennosides [Senna] 2 tab PO BID 08/15/18 [History] Sertraline [Zoloft] 50 mg PO DAILY 08/15/18 [History] Tamsulosin HCl [Flomax] 0.4 mg PO DAILY 08/15/18 [History] predniSONE [PredniSONE] See Taper PO DAILY 08/15/18 [History] Allergy/AdvReac Type Severity Reaction Status Date / Time gabapentin Allergy See Verified 09/23/16 15:04 Comments mushroom Allergy See Verified 09/23/16 15:04 Comments pregabalin Allergy See Verified 09/23/16 15:04 Comments Review of systems: 10 point review of systems done, negative other for what mentioned in the history of present illness Exam - Constitutional Vitals: Temp Pulse Resp BP Pulse Ox 97.7 F 89 24 97/65 100 08/16/18 12:57 08/16/18 12:57 08/16/18 12:57 08/16/18 12:57 08/16/18 12:57 General appearance: cooperative, disheveled, no febrile - Head Head exam: Present: atraumatic, normocephalic - Eye Eye exam: Present: EOMI, PERRL, sclera anicteric Additional comments: Conjunctival hemorrhage right eye - ENT ENT exam: Present: mucous membranes dry, normal exam - Neck Neck exam: Present: full ROM. Absent: meningismus - Respiratory Additional comments: Chest expanding symmetrically. Diminished breath sounds universally especially at the bases. I did not appreciate any wheezing or rhonchi. - Cardiovascular Cardiovascular exam: Present: RRR, +S1, +S2 - GI/Abdominal GI/Abdominal exam: Present: firm, normal bowel sounds. Absent: guarding, tenderness - Extremities Exam Extremities exam: Present: normal inspection. Absent: joint swelling - Neurological Exam Neurological exam: Present: alert, oriented X3 - Psychiatric Psychiatric exam: Present: agitated - Skin Skin exam: Present: normal color. Absent: rash Infectious Disease CN: Results - Labs CBC & Chem 7: 08/16/18 05:30 08/16/18 05:30 Cultures: Cultures 08/16/18 09:15 Blood Culture - Preliminary Peripheral Venipuncture Culture is incubating and being continuously monitored for growth. Final report to follow. 08/16/18 09:20 Blood Culture - Preliminary Peripheral Venipuncture Culture is incubating and being continuously monitored for growth. Final report to follow. 08/15/18 10:37 Blood Culture - Preliminary Peripheral Venipuncture Gram Negative Issa 08/15/18 10:12 Blood Culture - Preliminary Peripheral Venipuncture Gram Negative Issa 08/15/18 14:40 Influenza Types A,B Antigen - Final Nasopharyngeal Serology: Serology 08/15/18 08/15/18 Range/Units 11:32 10:12 Urine Color Yellow (Yellow) Urine Clarity Clear (Clear) Urine pH 7.0 (5.0-8.0) pH Units Ur Specific Urania 1.017 (1.010-1.025) Urine Protein 30 H (Neg-Trace) mg/dL Urine Glucose (UA) 500 H (Normal) mg/dL Urine Ketones Negative (Negative) mg/dL Urine Blood Negative (Negative) Urine Nitrite Negative (Negative) Urine Bilirubin Negative (Negative) Urine Urobilinogen Normal (Normal) mg/dL Ur Leukocyte Esterase Negative (Negative) Urine Microscopic RBC 0-3 (0-3) per hpf Urine Microscopic WBC 0-3 (0-3) per hpf Ur Squamous Epith Cells Moderate H (None-Few) per lpf Urine Bacteria Many H (None-Few) per hpf Hyaline Casts None Seen (None-Few) per lpf Ur Culture Indicated? NO (NO) A. baumannii (PCR) Not Detected (Not Detect) Alba albicans (PCR) Not Detected (Not Detect) C. glabrata (PCR) Not Detected (Not Detect) C. krusei (PCR) Not Detected (Not Detect) C. parapsilosis (PCR) Not Detected (Not Detect) C. tropicalis (PCR) Not Detected (Not Detect) Enterobacteriac sp PCR Not Detected (Not Detect) E. cloacae complex PCR Not Detected (Not Detect) Enterococcus sp PCR Not Detected (Not Detect) E. coli (PCR) Not Detected (Not Detect) H. influenzae (PCR) Not Detected (Not Detect) Klebsiella oxytoca PCR Not Detected (Not Detect) Klebsiella pneumoniae Not Detected (Not Detect) List. monocytogenes PCR Not Detected (Not Detect) N. meningitidis (PCR) Not Detected (Not Detect) Proteus species (PCR) Not Detected (Not Detect) Serratia marcescens PCR Not Detected (Not Detect) Staphylococcus sp PCR Not Detected (Not Detect) Staph aureus (PCR) Not Detected (Not Detect) mecA-Methicil Res Gene Not Detected (Not Detect) Streptococcus sp PCR Not Detected (Not Detect) Group A Strep DNA Not Detected (Not Detect) Group B Strep (PCR) Not Detected (Not Detect) Strep pneumoniae (PCR) Not Detected (Not Detect) P. aeruginosa (PCR) DETECTED A (Not Detect) Ha/B-Vanco Res Genes Not Detected (Not Detect) KPC (blaKPC) Detect PCR Not Detected (Not Detect) Consult Discharge Plan - Plan
[2018-08-16] MEDS ORDERED: Hyoscyamine SL 0.125 MG TAB.SUBL PO PRN (17:35)
[2018-08-16] MEDS: Piperacillin/Tazobactam 3.375 GM in 0.9 % Sodium Chloride Mini Bag 100 ML IVPB SCH (17:40)
--- NOTE | 2018-08-16 17:55 | Internal Med Progress Note ---
<Yusuf Ruiz Doyle - Last Filed: 08/16/18 17:42> Hospitalist Progress Note - Encounter Date of Encounter: 08/16/18 Time of Encounter: 09:00 - Subjective Interval History: Mr Leiva had knee pain this AM, which resolved with Oxycodone, which he receives at home. I asked him to clarify his hospice status. He states he is on home hospice for COPD. He cannot recall why he was put on it, if he had poor prognosis, e.t.c. He does confirm code status DNRCC, and that he wants treatment for his shortness of breath and suspected infection. - Exam Vitals: Temp Pulse Resp BP Pulse Ox 98.2 F 90 20 117/67 99 08/16/18 17:08 08/16/18 17:08 08/16/18 17:08 08/16/18 17:08 08/16/18 17:08 Exam: CONSTITUTIONAL: Patient appears as an age appropriate male well developed, in no acute distress. EYES Clear sclerae, bilateral pupils are equal, reactive to light and accommodation. Extraocular movements are intact RESPIRATORY: No accessory muscle use, bilateral wheezing, no crackles/rales. CARDIOVASCULAR: Regular heart rate, normal S1 and S2, no murmurs GASTROINTESTINAL: bowel sounds present, soft, no tenderness. No hepatosplenomegaly. MUSCULOSKELETAL: Joints in normal range of motion, no clubbing, no edema, no cyanosis. NEUROLOGIC: no focal neurological deficit. Normal light touch sensation to upper and lower extremity PSYCHIATRIC: Oriented x2, with good insight, mood is euthymic. No hallucinations or delusions. SKIN: Skin warm and dry, no rashes, no open wound. - Assessment and Plan (1) Acute and chronic respiratory failure with hypoxia Current Visit: Yes Status: Chronic Assessment and Plan: Patient presented with shortness of breath and hypoxia Believed to be secondary to COPD exacerbation Responded well to BiPAP, O2, IV steroids, Duonebs Patient currently saturating/ventilating appropriately on home dose O2 Plan Continue current treatment Consider de-escalating steroids to oral tomorrow (2) COPD exacerbation Current Visit: Yes Status: Resolved Assessment and Plan: Unknown cause of exacerbation Plan as seen above (3) Sepsis Current Visit: Yes Status: Acute Assessment and Plan: Presented with fever, tachycardia, hypoxia Blood cultures demonstrating P. aeruginosa bacteremia Patient on day 2 IV Zosyn/Levaquin ID consulted, recommending continued empiric coverage until sensitivities finalize Appreciate and agree with recommendations Patient currently stable, will continue to monitor (4) Gram-negative bacteremia Current Visit: Yes Status: Acute Assessment and Plan: Repeat cultures drawn, original culture sensitivities pending, plan as seen above (5) Type 2 diabetes mellitus Current Visit: Yes Status: Chronic Assessment and Plan: Chronic DM2 Not on home insulin Sugars elevated here Switched from low dose SSI to medium dose SSI Will re-evaluate with accuchecks tomorrow (6) History of dementia Current Visit: Yes Status: Chronic Assessment and Plan: History of dementia Baseline unknown Patient able to answer most questions here Alert and oriented x 2 Will attempt to talk with family (7) Hospice care patient Current Visit: Yes Status: Chronic Assessment and Plan: Patient is home hospice for COPD Can't recall prognosis Confirmed DNRCC Confirmed he wants treatment here Will continue to treat and follow wishes Continued home hospice comfort regimen DVT Prophylaxis: Subq heparin - Time Spent with Patient Total time spent is greater than 50% in coordination of care (as documented) at patient's floor/unit and/or counseling patient: Internal Medicine: Result - Labs CBC & Chem 7: 08/16/18 05:30 08/16/18 05:30 Labs: Short CBC 08/16/18 Range/Units 05:30 WBC 11.6 H (4.3-11.1) K/mcL Hgb 7.8 L D (12.9-16.9) g/dL Hct 27.4 L (37.5-50.1) % Plt Count 147 (140-400) K/mcL Neutrophils # 10.0 H (1.6-8.9) K/mcL BMP 08/16/18 05:30 Sodium 141 Potassium 5.5 H Chloride 103 Carbon Dioxide 31 H BUN 36 H Creatinine 1.48 H Glucose 249 H Calcium 8.7 - ABG Interpretation ABG results: ABG ABG pH 7.33 pH Units (7.32-7.45) 08/15/18 10:48 ABG pCO2 70 mmHg (35-45) H* 08/15/18 10:48 ABG pO2 238 mmHg (85-104) H 08/15/18 10:48 ABG O2 Saturation 100 % (95-98) H 08/15/18 10:48 PT/INR, D-dimer PT 11.1 Seconds (9.4-12.1) 08/15/18 10:12 - Impressions Impressions Abdomen/Pelvis CT 08/15/18 14:26 IMPRESSION: No acute or focal findings are seen to the abdomen or pelvis to explain the patient's symptoms. Nonobstructing stone to the left kidney. D/ / 08/15/2018 18:41:22 Gian Chang MD / leida Interpreting Provider: Gian Chang MD Echocardiogram 08/16/18 09:43 Impressions: LVEF 50-55%. Normal LV chamber size, wall thickness and function. Atypical septal motion possibly due to a bundle branch block. Normal right ventricular structure and function. Mild left ventricular diastolic dysfunction. Mild-moderate tricuspid regurgitation. Severe pulmonary hypertension. Estimated RVSP is >90 mmHg. Left Ventricular Wall Motion: Rest Echo Findings All wall segments showed normal motion. Findings: Study Quality * Technically adequate exam. ECG Findings * Normal sinus rhythm. Left Ventricle * LVEF 50-55%. * Normal LV chamber size, wall thickness and function. * Atypical septal motion possibly due to a bundle branch block. * Mild left ventricular diastolic dysfunction. Right Ventricle * Normal right ventricular structure and function. Right Atrium * Moderately dilated right atrium. Left Atrium * Moderately dilated left atrium. Aortic Valve * Aortic valve not well visualized. * Trace aortic regurgitation. * No aortic stenosis. Mitral Valve * Normal mitral valve structure and function. * No mitral stenosis. * Trace mitral regurgitation. Tricuspid Valve * Normal tricuspid valve structure. * Mild-moderate tricuspid regurgitation. * Severe pulmonary hypertension. * Estimated RVSP is >90 mmHg. Pulmonic Valve * Pulmonic valve not well visualized. * No pulmonic regurgitation. Aorta * Normally sized aortic root. Pericardium * The pericardium appears normal. IVC * The IVC is dilated. * > 50% respiratory change Pulmonary Artery * Normal visualized portions of the main pulmonary artery. Consult Discharge Plan - Plan [facility]errals: [facility]Primary Care Provider[facility] - <Blaine Rogel - Last Filed: 08/17/18 08:39> Hospitalist Progress Note - Encounter Date of Encounter: 08/17/18 - Exam Vitals: Temp Pulse Resp BP Pulse Ox 97.5 F L 68 20 98/59 99 08/17/18 08:09 08/17/18 08:09 08/17/18 08:09 08/17/18 08:09 08/17/18 08:09 - Assessment and Plan (1) Type 2 diabetes mellitus Current Visit: Yes Status: Chronic (2) Acute and chronic respiratory failure with hypoxia Current Visit: Yes Status: Chronic (3) COPD exacerbation Current Visit: Yes Status: Resolved (4) Sepsis Current Visit: Yes Status: Acute (5) History of dementia Current Visit: Yes Status: Chronic (6) Gram-negative bacteremia Current Visit: Yes Status: Acute (7) Hospice care patient Current Visit: Yes Status: Chronic - Time Spent with Patient Total time spent is greater than 50% in coordination of care (as documented) at patient's floor/unit and/or counseling patient: Internal Medicine: Result - Labs CBC & Chem 7: 08/17/18 04:42 08/17/18 04:42 Labs: Short CBC 08/17/18 Range/Units 04:42 WBC 7.0 (4.3-11.1) K/mcL Hgb 7.6 L (12.9-16.9) g/dL Hct 26.2 L (37.5-50.1) % Plt Count 142 (140-400) K/mcL Neutrophils # 4.6 (1.6-8.9) K/mcL BMP 08/17/18 04:42 Sodium 139 Potassium 5.4 H Chloride 102 Carbon Dioxide 31 H BUN 46 H Creatinine 1.66 H Glucose 245 H Calcium 8.5 L - ABG Interpretation ABG results: ABG ABG pH 7.33 pH Units (7.32-7.45) 08/15/18 10:48 ABG pCO2 70 mmHg (35-45) H* 08/15/18 10:48 ABG pO2 238 mmHg (85-104) H 08/15/18 10:48 ABG O2 Saturation 100 % (95-98) H 08/15/18 10:48 PT/INR, D-dimer PT 11.1 Seconds (9.4-12.1) 08/15/18 10:12 - Impressions Impressions Echocardiogram 08/16/18 09:43 Impressions: LVEF 50-55%. Normal LV chamber size, wall thickness and function. Atypical septal motion possibly due to a bundle branch block. Normal right ventricular structure and function. Mild left ventricular diastolic dysfunction. Mild-moderate tricuspid regurgitation. Severe pulmonary hypertension. Estimated RVSP is >90 mmHg. Left Ventricular Wall Motion: Rest Echo Findings All wall segments showed normal motion. Findings: Study Quality * Technically adequate exam. ECG Findings * Normal sinus rhythm. Left Ventricle * LVEF 50-55%. * Normal LV chamber size, wall thickness and function. * Atypical septal motion possibly due to a bundle branch block. * Mild left ventricular diastolic dysfunction. Right Ventricle * Normal right ventricular structure and function. Right Atrium * Moderately dilated right atrium. Left Atrium * Moderately dilated left atrium. Aortic Valve * Aortic valve not well visualized. * Trace aortic regurgitation. * No aortic stenosis. Mitral Valve * Normal mitral valve structure and function. * No mitral stenosis. * Trace mitral regurgitation. Tricuspid Valve * Normal tricuspid valve structure. * Mild-moderate tricuspid regurgitation. * Severe pulmonary hypertension. * Estimated RVSP is >90 mmHg. Pulmonic Valve * Pulmonic valve not well visualized. * No pulmonic regurgitation. Aorta * Normally sized aortic root. Pericardium * The pericardium appears normal. IVC * The IVC is dilated. * > 50% respiratory change Pulmonary Artery * Normal visualized portions of the main pulmonary artery. - Attending Attestation I examined this patient and my medical decision-making was reviewed with the Resident Physician. I agree with the documented findings, disposition and treatment plan as described except to the extent set forth below. ____ <Yusuf Ruiz - Last Filed: 08/16/18 17:42> (3) Sepsis Qualifiers: Sepsis type: sepsis due to unspecified organism Qualified Code(s): A41.9 - Sepsis, unspecified organism (5) Type 2 diabetes mellitus Qualifiers: Diabetes mellitus bed bug exterminator insulin use: without bed bug exterminator use Diabetes mellitus complication status: with kidney complications Diabetes mellitus complication detail: with chronic kidney disease Chronic kidney disease stage: stage 3 (moderate) Qualified Code(s): E11.22 - Type 2 diabetes mellitus with diabetic chronic kidney disease; N18.3 - Chronic kidney disease, stage 3 (moderate) <Blaine Rogel - Last Filed: 08/17/18 08:39> (1) Type 2 diabetes mellitus Qualifiers: Diabetes mellitus prison insulin use: without prison use Diabetes mellitus complication status: with kidney complications Diabetes mellitus complication detail: with chronic kidney disease Chronic kidney disease stage: stage 3 (moderate) Qualified Code(s): E11.22 - Type 2 diabetes mellitus with diabetic chronic kidney disease; N18.3 - Chronic kidney disease, stage 3 (moderate) (4) Sepsis Qualifiers: Sepsis type: sepsis due to unspecified organism Qualified Code(s): A41.9 - Sepsis, unspecified organism
[2018-08-16] MEDS: Loratadine 10 MG TABLET PO SCH (20:08)
[2018-08-17] MEDS: MethylPREDNISolone 40 MG/ML VIAL IVP SCH ×3 (00:16→15:59)
[2018-08-17] MEDS: *HR* Heparin 5,000 UNIT/ML VIAL SQ SCH ×3 (00:18→15:58)
[2018-08-17] MEDS: *HR* OxyCODONE/APAP 5/325 TABLET PO SCH ×6 (00:21→21:50)
[2018-08-17] MEDS: Piperacillin/Tazobactam 3.375 GM in 0.9 % Sodium Chloride Mini Bag 100 ML IVPB SCH ×3 (02:05→17:44)
[2018-08-17] MEDS: Ipratropium/Albuterol Neb 3 ML IH SCH ×6 (03:48→23:15)
[2018-08-17 05:04] LABS: Hematocrit 26.2 % (37.5-50.1); Hemoglobin 7.6 g/dL (12.9-16.9); Mean Corpuscular Hemoglobin 30.5 pg (28.0-33.3); Mean Corpuscular Volume 105.2 fL (83.0-100.0); Mean Platelet Volume 11.3 fL (9.4-12.4); Nucleated Red Blood Cells 0.3 /100 WBC (0); Platelet Count 142 K/mcL (140-400); Red Blood Count 2.49 M/mcL (4.19-5.50); Red Cell Distribution Width 16.6 % (11.5-14.5)
[2018-08-17 05:19] LABS: Calcium 8.5 mg/dL (8.6-10.3); Potassium 5.4 mEq/L (3.5-5.1)
[2018-08-17 05:45] LABS: Lymphocytes # 1.1 K/mcL (0.6-4.6); Neutrophils # 4.6 K/mcL (1.6-8.9); Platelet Estimate Normal (Normal)
[2018-08-17 05:46] LABS: Anisocytosis 1+ (Not Present); Large Platelets Present (Not Present)
[2018-08-17] MEDS ORDERED: Insulin DETEMIR 100 UNIT/ML X5UNITS SQ ONE (07:45)
[2018-08-17] MEDS ORDERED: 0.9 % Sodium Chloride 1,000 ML IVC SCH (08:00)
[2018-08-17] MEDS ORDERED: 0.9 % Sodium Chloride 500 ML IVC ONE (09:08)
[2018-08-17] MEDS: Furosemide 20 MG TABLET PO SCH (10:15)
[2018-08-17] MEDS: Sennosides 8.6 MG TABLET PO SCH ×2 (10:15→21:50)
[2018-08-17] MEDS: Finasteride 5 MG TABLET PO SCH (10:15)
[2018-08-17] MEDS: Aspirin Enteric Coated 81 MG Tablet PO SCH (10:16)
[2018-08-17] MEDS: Insulin LISPRO 300 UNITS/3 ML VIAL SQ SCH ×4 (10:17→21:51)
[2018-08-17] MEDS: Fluticasone Propionate Nasal 50 MCG/SPRAY BOTTLE NS SCH (10:19)
--- NOTE | 2018-08-17 10:55 | Discharge Summary ---
- NOTES TO OUTPATIENT PROVIDER Notes to Outpatient Provider: Mr Leiva presented for shortness of breath secondary to COPD exacerbation which quickly resolved with BiPAP, steroids, and bronchodilators. He was also found to have Pseudomonas bacteremia. Infectious Disease was involved for antibiotic management. The patient is on home hospice for COPD, and requested to be discharged withut further work up. I informed him that he is anemic which can have complications and he stated he understood. We will discharge with antibiotics per ID recommendations. Orders not resulted at time of discharge: Pending orders 08/15/18 10:37 Culture,Blood [BC] Stat 08/16/18 09:15 Culture,Blood [BC] Routine Date of Encounter: 08/17/18 Time of Encounter: 10:51 - Discharge Diagnosis (1) Acute and chronic respiratory failure with hypoxia Priority: Primary Status: Chronic Assessment and Plan: Patient presented with shortness of breath and hypoxia Believed to be secondary to COPD exacerbation Responded well to BiPAP, O2, IV steroids, Duonebs Patient currently saturating/ventilating appropriately on home dose O2 Plan Stable Patient requesting to be discharged Will discharge with with oral steroid taper and home O2, BiPAP, bronchodilators (2) COPD exacerbation Priority: Secondary Status: Resolved Assessment and Plan: Unknown cause of exacerbation Plan as seen above (3) Sepsis Priority: Secondary Status: Resolved Assessment and Plan: Presented with fever, tachycardia, hypoxia Blood cultures demonstrating P. aeruginosa bacteremia Patient on day 3 IV Zosyn/Levaquin ID consulted, recommending continued empiric coverage until sensitivities finalize Appreciate and agree with recommendations Patient currently stable, labs and vitals no longer indicating sepsis Patient requesting discharge back to home hospice, waiting for antibiotic recs from ID Qualifiers: Sepsis type: sepsis due to unspecified organism Qualified Code(s): A41.9 - Sepsis, unspecified organism (4) Gram-negative bacteremia Priority: Secondary Status: Acute Assessment and Plan: Repeat cultures drawn, original culture sensitivities pending, plan as seen above (5) Type 2 diabetes mellitus Priority: Secondary Status: Chronic Assessment and Plan: Chronic DM2 Not on home insulin sugars elevated medium dose SSI Monitoring Qualifiers: Diabetes mellitus remote computer terminal operator insulin use: without half-way use Diabetes mellitus complication status: with kidney complications Diabetes mellitus complication detail: with chronic kidney disease Chronic kidney disease stage: stage 3 (moderate) Qualified Code(s): E11.22 - Type 2 diabetes mellitus with diabetic chronic kidney disease; N18.3 - Chronic kidney disease, stage 3 (moderate) (6) History of dementia Priority: Secondary Status: Chronic Assessment and Plan: History of dementia Baseline unknown Patient A&O3 here (7) Hospice care patient Priority: Secondary Status: Chronic Assessment and Plan: Patient is home hospice for COPD Can't recall prognosis Confirmed DNRCC Confirmed he wanted treatment for SOB Now wants to leave without any further work up Clinically stable, will discharge per wishes (8) Anemia Priority: Secondary Status: Chronic Assessment and Plan: Patient anemic on presentation Continues to be anemic, macrocytic, no evidence of bleeding, B12 ordered Patient requesting discharge, Qualifiers: Anemia type: unspecified type Qualified Code(s): D64.9 - Anemia, unspecified Hospital course: Mr. Leiva is a 73 year old male - Time Spent with Patient Total time spent providing and/or coordinating discharge services: - Discharge Medications Home Medications: Epoetin Nathanael [Epogen] 6,[address] [facility] 09/23/16 [History] Finasteride [Proscar] 5 mg PO DAILY 09/23/16 [History] Fluticasone Propionate Nasal [Flonase] 1 spray NS DAILY 09/23/16 [History] Trospium Chloride 20 mg PO BID 09/23/16 [History] Ipratropium/Albuterol Neb [Duoneb] 3 ml IH Q4HR #0 09/29/16 [Rx] Acetaminophen [Tylenol 650mg SUPP] 650 mg RC Q4HR PRN 08/15/18 [History] Aspirin [Adult Aspirin Regimen] 81 mg PO DAILY 08/15/18 [History] Bisacodyl [Dulcolax] 10 mg RC DAILY PRN 08/15/18 [History] Cetirizine HCl [24Hour Allergy] 5 mg PO DAILY 08/15/18 [History] DULoxetine [Cymbalta] 60 mg PO DAILY 08/15/18 [History] Doxycycline Hyclate 100 mg PO BID 08/15/18 [History] Furosemide [Lasix] 20 mg PO DAILY 08/15/18 [History] Hyoscyamine SL [Levsin Sl] 0.125 - 0.25 mg PO Q2H PRN 08/15/18 [History] LORazepam [Ativan] 0.5 mg PO Q4H PRN 08/15/18 [History] Morphine Oral CONC [Roxanol] 0.25 ml PO Q4H PRN 08/15/18 [History] Olodaterol HCl [Striverdi Respimat] 2 puff IH DAILY 08/15/18 [History] Omeprazole 20 mg PO DAILY 08/15/18 [History] OxyCODONE/APAP 5/325 [Percocet 5/325 MG] 1 each PO Q4HR PRN 08/15/18 [History] Oxygen 2 - 10 l IH DAILY 08/15/18 [History] Polyethylene Glycol 3350 [MiraLAX] 17 gm PO DAILY 08/15/18 [History] Promethazine [Phenergan] 25 mg PO Q6HR PRN 08/15/18 [History] Promethazine [Phenergan] 25 mg RC Q6HR PRN 08/15/18 [History] Roflumilast [Daliresp] 500 mcg PO DAILY 08/15/18 [History] Saxagliptin HCl [Onglyza] 2.5 mg PO DAILY 08/15/18 [History] Sennosides [Senna] 2 tab PO BID 08/15/18 [History] Sertraline [Zoloft] 50 mg PO DAILY 08/15/18 [History] Tamsulosin HCl [Flomax] 0.4 mg PO DAILY 08/15/18 [History] predniSONE [PredniSONE] See Taper PO DAILY 08/15/18 [History] Allergies/Adverse Reactions: Allergy/AdvReac Type Severity Reaction Status Date / Time gabapentin Allergy See Verified 09/23/16 15:04 Comments mushroom Allergy See Verified 09/23/16 15:04 Comments pregabalin Allergy See Verified 09/23/16 15:04 Comments Date of admission: 08/15/18 14:23 [facility] care [facility] Consults: 08/16/18 09:43 Consult to Infectious Diseases [CONS] Routine Consulting Provider: Infectious Disease [place] Reason for Consult: Patient presented for SOB, COPD exacerbation, found to have pseudomonas aeruginosa bacteremia, on IV Levaquin/Zosyn, pneumonia unlikely, urine possible source, patient has condom catheter, 1 day dysuria Time Notified: 09:45 Call Completed: No Discharging clinician: Yusuf Ruiz Anticipated date of discharge: 08/17/18 - Constitutional Vitals: Temp Pulse Resp BP Pulse Ox 97.5 F L 68 20 98/59 99 08/17/18 08:09 08/17/18 08:09 08/17/18 08:09 08/17/18 08:09 08/17/18 08:09 General appearance: Present: A&O X 1, pleasant - Discharge Instructions Follow Up With: [facility] [Primary Care Provider[facility] - Forms: ED Satisfaction Letter
[2018-08-17] MEDS: Budesonide/Formoterol 160/4.5 1 PUFF INH IH SCH ×2 (11:10→20:11)
[2018-08-17] MEDS ORDERED: *HR* LORazepam 0.5 MG TABLET PO PRN (14:42)
--- NOTE | 2018-08-17 15:36 | Infectious Disease Progress No ---
Date of Encounter: 08/17/18 Time of Encounter: 13:10 - Assessment and Plan (1) Sepsis Status: Resolved The patient had 3 sepsis criteria on admission. Likely secondary to gram-negative bacteremia. Improved. The patient has been afebrile overnight. His white blood cell count is normal. He does not have tachycardia at this time. Blood cultures drawn 08/15/18 are +2 out of 2 sets for Pseudomonas. Repeat blood cultures from 08/16/18 are pending 2 sets. Relations: Await repeat blood cultures. Await susceptibilities on blood cultures obtained 08/15/18. She was adamant that he is living today. He does not want stay in the hospital despite our recommendations. Dr. Luther did speak with the patient and he is now willing to stay. Continue Levaquin 750 mg IV every 48 hours. Continue Zosyn 3.375 g IV every 8 hours. Duration of treatment depends on the clinical picture. Monitor renal function and dose adjust antibiotics. Qualifiers: Sepsis type: sepsis due to unspecified organism Qualified Code(s): A41.9 - Sepsis, unspecified organism (2) Gram-negative bacteremia Status: Acute Other organism: Pseudomonas aeruginosa. Source: Unclear. Clinically improved. Blood cultures drawn 08/15/18 are +2 out of 2 sets for Pseudomonas per the PCR. Repeat blood cultures drawn 08/16/18 are pending 2 sets. Currently on IV Levaquin and Zosyn. (3) Altered mental status Status: Acute Likely secondary to sepsis. Appears improved. Qualifiers: Altered mental status type: unspecified Qualified Code(s): R41.82 - Altered mental status, unspecified (4) Dementia Status: Chronic Qualifiers: Dementia type: unspecified type Dementia behavioral disturbance: without behavioral disturbance Qualified Code(s): F03.90 - Unspecified dementia without behavioral disturbance (5) Hospice care patient Status: Chronic Secondary to advanced COPD. (6) Moderate to severe pulmonary hypertension Status: Acute (7) COPD (chronic obstructive pulmonary disease) Status: Chronic Qualifiers: COPD type: emphysema Emphysema type: panlobular Qualified Code(s): J43.1 - Panlobular emphysema - Subjective Interval history: Patient seen and examined. No acute events noted overnight. Patient is adamant that he is leaving the hospital today despite the fact that we do not have his culture susceptibilities back. He states he feels fine and wants to go home. He denies any fevers or chills or rigors. Denies chest pain. He reports ch ronic shortness of breath and cough that are at baseline. He denies nausea, vomiting, diarrhea, or constipation. He denies abdominal pain or urinary complaints. He denies any oral thrush or new skin lesions. Infect Dis PN-Objective Data - Labs CBC & Chem 7: 08/18/18 03:02 08/18/18 03:02 Labs: Laboratory Results - last 24 hr 08/15/18 08/15/18 08/16/18 15:52 19:42 12:28 WBC RBC Hgb Hct MCV MCH MCHC RDW Plt Count MPV Seg Neutrophils % Band Neutrophils % Lymphocytes % Metamyelocytes % Myelocytes % Promyelocytes % Neutrophils # Lymphocytes # Nucleated RBCs/100 WBC Platelet Estimate Large Platelets Anisocytosis Sodium Potassium Chloride Carbon Dioxide BUN Creatinine Est GFR ( Amer) Est GFR (Non-Af Amer) BUN/Creatinine Ratio Glucose POC Glucose 298 H 373 H 192 H Calculated Osmolality Calcium Vitamin B12 08/16/18 08/16/18 08/17/18 17:01 21:11 04:42 WBC 7.0 RBC 2.49 L Hgb 7.6 L Hct 26.2 L MCV 105.2 H MCH 30.5 MCHC 29.0 L RDW 16.6 H Plt Count 142 MPV 11.3 Seg Neutrophils % 64.0 Band Neutrophils % 2.0 Lymphocytes % 16.0 Metamyelocytes % 4.0 H Myelocytes % 10.0 H Promyelocytes % 4.0 H Neutrophils # 4.6 Lymphocytes # 1.1 Nucleated RBCs/100 WBC 0.3 H Platelet Estimate Normal Large Platelets Present A Anisocytosis 1+ A Sodium Potassium Chloride Carbon Dioxide BUN Creatinine Est GFR ( Amer) Est GFR (Non-Af Amer) BUN/Creatinine Ratio Glucose POC Glucose 230 H 203 H Calculated Osmolality Calcium Vitamin B12 08/17/18 08/17/18 08/17/18 04:42 07:22 08:12 WBC RBC Hgb Hct MCV MCH MCHC RDW Plt Count MPV Seg Neutrophils % Band Neutrophils % Lymphocytes % Metamyelocytes % Myelocytes % Promyelocytes % Neutrophils # Lymphocytes # Nucleated RBCs/100 WBC Platelet Estimate Large Platelets Anisocytosis Sodium 139 Potassium 5.4 H Chloride 102 Carbon Dioxide 31 H BUN 46 H Creatinine 1.66 H Est GFR ( Amer) 49 L Est GFR (Non-Af Amer) 41 L BUN/Creatinine Ratio 28 H Glucose 245 H POC Glucose 260 H Calculated Osmolality 308 H Calcium 8.5 L Vitamin B12 1151 H 08/17/18 11:58 WBC RBC Hgb Hct MCV MCH MCHC RDW Plt Count MPV Seg Neutrophils % Band Neutrophils % Lymphocytes % Metamyelocytes % Myelocytes % Promyelocytes % Neutrophils # Lymphocytes # Nucleated RBCs/100 WBC Platelet Estimate Large Platelets Anisocytosis Sodium Potassium Chloride Carbon Dioxide BUN Creatinine Est GFR ( Amer) Est GFR (Non-Af Amer) BUN/Creatinine Ratio Glucose POC Glucose 185 H Calculated Osmolality Calcium Vitamin B12 Cultures: Cultures 08/15/18 10:37 Blood Culture - Preliminary Peripheral Venipuncture Pseudomonas aeruginosa 08/15/18 10:12 Blood Culture - Preliminary Peripheral Venipuncture Pseudomonas aeruginosa 08/16/18 09:15 Blood Culture - Preliminary Peripheral Venipuncture Culture is incubating and being continuously monitored for growth. Final report to follow. 08/16/18 09:20 Blood Culture - Preliminary Peripheral Venipuncture Culture is incubating and being continuously monit ored for growth. Final report to follow. 08/15/18 14:40 Influenza Types A,B Antigen - Final Nasopharyngeal Serology 08/15/18 08/15/18 Range/Units 11:32 10:12 Urine Color Yellow (Yellow) Urine Clarity Clear (Clear) Urine pH 7.0 (5.0-8.0) pH Units Ur Specific [place] 1.017 (1.010-1.025) Urine Protein 30 H (Neg-Trace) mg/dL Urine Glucose (UA) 500 H (Normal) mg/dL Urine Ketones Negative (Negative) mg/dL Urine Blood Negative (Negative) Urine Nitrite Negative (Negative) Urine Bilirubin Negative (Negative) Urine Urobilinogen Normal (Normal) mg/dL Ur Leukocyte Esterase Negative (Negative) Urine Microscopic RBC 0-3 (0-3) per hpf Urine Microscopic WBC 0-3 (0-3) per hpf Ur Squamous Epith Cells Moderate H (None-Few) per lpf Urine Bacteria Many H (None-Few) per hpf Hyaline Casts None Seen (None-Few) per lpf Ur Culture Indicated? NO (NO) A. baumannii (PCR) Not Detected (Not Detect) Alba albicans (PCR) Not Detected (Not Detect) C. glabrata (PCR) Not Detected (Not Detect) C. krusei (PCR) Not Detected (Not Detect) C. parapsilosis (PCR) Not Detected (Not Detect) C. tropicalis (PCR) Not Detected (Not Detect) Enterobacteriac sp PCR Not Detected (Not Detect) E. cloacae complex PCR Not Detected (Not Detect) Enterococcus sp PCR Not Detected (Not Detect) E. coli (PCR) Not Detected (Not Detect) H. influenzae (PCR) Not Detected (Not Detect) Klebsiella oxytoca PCR Not Detected (Not Detect) Klebsiella pneumoniae Not Detected (Not Detect) List. monocytogenes PCR Not Detected (Not Detect) N. meningitidis (PCR) Not Detected (Not Detect) Proteus species (PCR) Not Detected (Not Detect) Serratia marcescens PCR Not Detected (Not Detect) Staphylococcus sp PCR Not Detected (Not Detect) Staph aureus (PCR) Not Detected (Not Detect) mecA-Methicil Res Gene Not Detected (Not Detect) Streptococcus sp PCR Not Detected (Not Detect) Group A Strep DNA Not Detected (Not Detect) Group B Strep (PCR) Not Detected (Not Detect) Strep pneumoniae (PCR) Not Detected (Not Detect) P. aeruginosa (PCR) DETECTED A (Not Detect) Ha/B-Vanco Res Genes Not Detected (Not Detect) KPC (blaKPC) Detect PCR Not Detected (Not Detect) Exam - Constitutional Vitals: Temp Pulse Resp BP Pulse Ox 97.5 F L 77 17 105/56 92 08/17/18 11:55 08/17/18 11:55 08/17/18 11:55 08/17/18 11:55 08/17/18 11:55 General appearance: average body habitus, cooperative, no acute distress - Head Head exam: Present: atraumatic, normal inspection, normocephalic - Eye Eye exam: Present: EOMI, normal appearance, PERRL Pupils: Present: normal accommodation - ENT ENT exam: Present: mucous membranes moist - Neck Neck exam: Present: normal inspection - Respiratory Respiratory exam: Present: rhonchi (Scattered), tachypnea (on exertion). Absent: rales, wheezes - Cardiovascular Cardiovascular exam: Present: RRR, +S1, +S2 - GI/Abdominal GI/Abdominal exam: Present: normal bowel sounds, soft. Absent: distended, tenderness - Extremities Exam Extremities exam: Present: normal inspection. Absent: joint swelling, pedal edema, tenderness - Neurological Exam Neurological exam: Present: alert, oriented X3, no focal deficits - Psychiatric Psychiatric exam: Present: normal affect, normal mood - Skin Skin exam: Present: dry, intact, normal color, warm Consult Discharge Plan - Plan Instructions: Viral Pneumonia (DC), Chronic Obstructive Pulmonary Disease (DC), Sepsis (DC) [facility]errals: [facility] [Primary Care Provider[facility] - 08/21/18 2:15 pm Prescriptions: RX: levoFLOXacin [Levaquin] 750 mg PO Q48H 10 Days #5 tablet RX: predniSONE [PredniSONE] See Taper PO DAILY 30 Days #48 tablet - Attending Attestation I examined this patient and my medical decision-making was reviewed with the Resident Physician. I agree with the documented findings, disposition and treatment plan as described except to the extent set forth below. I had a long discussion with the patient in the presence of his trying to did convince him to stay. Patient was anxious because he did not think he was getting all the medications that he gets at home. I spoke with nursing staff and make sure they go over the medication list from home and make sure everything that we were giving him coincides with that. Patient agreed to stay
[2018-08-17 15:47] LABS: % Iron Saturation 49 % (20-55); Iron 110 mcg/dL (65-175); Transferrin 162 mg/dL (203-362)
--- NOTE | 2018-08-17 16:24 | Internal Med Progress Note ---
<JosephYusuf C - Last Filed: 08/17/18 16:22> Hospitalist Progress Note - Encounter Date of Encounter: 08/17/18 Time of Encounter: 08:00 - Subjective Interval History: Patient stated he wanted to leave, I informed him we are recommending he stay until tomorrow so we can tailor his antibiotics. I told him if he leaves today i t will be against medical advice. - Exam Vitals: Temp Pulse Resp BP Pulse Ox 97.5 F L 77 17 105/56 92 08/17/18 11:55 08/17/18 11:55 08/17/18 11:55 08/17/18 11:55 08/17/18 11:55 Exam: CONSTITUTIONAL: Patient appears as an age appropriate male well developed, in no acute distress. EYES Clear sclerae, bilateral pupils are equal, reactive to light and accommodation. Extraocular movements are intact RESPIRATORY: No accessory muscle use, no wheezing, no crackles/rales. CARDIOVASCULAR: Regular heart rate, normal S1 and S2, no murmurs GASTROINTESTINAL: bowel sounds present, soft, no tenderness. No hepatosp lenomegaly. MUSCULOSKELETAL: Joints in normal range of motion, no clubbing, no edema, no cyanosis. NEUROLOGIC: no focal neurological deficit. Normal light touch sensation to upper and lower extremity PSYCHIATRIC: Oriented x3, with good insight, mood is euthymic. No hallucinations or delusions. SKIN: Skin warm and dry, no rashes, no open wound. - Assessment and Plan (1) Acute and chronic respiratory failure with hypoxia Current Visit: Yes Status: Chronic Assessment and Plan: Patient presented with shortness of breath and hypoxia Believed to be secondary to COPD exacerbation Responded well to BiPAP, O2, IV steroids, Duonebs Patient currently saturating/ventilating appropriately on home dose O2 Plan Continue with oral steroid taper and home O2, BiPAP, bronchodilators (2) COPD exacerbation Current Visit: Yes Status: Resolved Assessment and Plan: Unknown cause of exacerbation Plan as seen above (3) Sepsis Current Visit: Yes Status: Resolved Assessment and Plan: Presented with fever, tachycardia, hypoxia Blood cultures demonstrating P. aeruginosa bacteremia Patient on day 3 IV Zosyn/Levaquin ID consulted, recommending continued empiric coverage until sensitivities finalize Appreciate and agree with recommendations Patient currently stable, labs and vitals no longer indicating sepsis Plan Culture sensitivities will result tomorrow and patient can be discharged (4) Gram-negative bacteremia Current Visit: Yes Status: Acute Assessment and Plan: Repeat cultures drawn, original culture sensitivities pending, plan as seen above (5) Type 2 diabetes mellitus Current Visit: Yes Status: Chronic Assessment and Plan: Chronic DM2 Not on home insulin sugars elevated medium dose SSI 10 units levemir HS Monitoring (6) History of dementia Current Visit: Yes Status: Chronic Assessment and Plan: History of dementia Baseline unknown Patient A&O3 here (7) Anemia Current Visit: Yes Status: Chronic Assessment and Plan: Patient anemic on presentation, differential includes chronic disease vs nutritional, no signs of acute bleeding Continues to be anemic, macrocytic, no evidence of bleeding, B12 ordered, iron panel ordered Hgb stable for now, will continue to monitor and treat as etiology presents itse lf (8) Hospice care patient Current Visit: Yes Status: Chronic Assessment and Plan: Patient is home hospice for COPD Can't recall prognosis Confirmed DNRCC Confirmed he wants treatment here DVT Prophylaxis: Subq heparin - Time Spent with Patient Total time spent is greater than 50% in coordination of care (as documented) at patient's floor/unit and/or counseling patient: Internal Medicine: Result - Labs CBC & Chem 7: 08/17/18 04:42 08/17/18 04:42 Labs: Short CBC 08/17/18 Range/Units 04:42 WBC 7.0 (4.3-11.1) K/mcL Hgb 7.6 L (12.9-16.9) g/dL Hct 26.2 L (37.5-50.1) % Plt Count 142 (140-400) K/mcL Neutrophils # 4.6 (1.6-8.9) K/mcL BMP 08/17/18 04:42 Sodium 139 Potassium 5.4 H Chloride 102 Carbon Dioxide 31 H BUN 46 H Creatinine 1.66 H Glucose 245 H Calcium 8.5 L - ABG Interpretation ABG results: ABG ABG pH 7.33 pH Units (7.32-7.45) 08/15/18 10:48 ABG pCO2 70 mmHg (35-45) H* 08/15/18 10:48 ABG pO2 238 mmHg (85-104) H 08/15/18 10:48 ABG O2 Saturation 100 % (95-98) H 08/15/18 10:48 PT/INR, D-dimer PT 11.1 Seconds (9.4-12.1) 08/15/18 10:12 Consult Discharge Plan - Plan Referrals: [facility] [Primary Care Provider] - <Blaine Rogel - Last Filed: 08/17/18 16:39> Hospitalist Progress Note - Encounter Date of Encounter: 08/17/18 - Exam Vitals: Temp Pulse Resp BP Pulse Ox 97.5 F L 77 16 105/56 99 08/17/18 11:55 08/17/18 11:55 08/17/18 16:14 08/17/18 11:55 08/17/18 16:14 - Assessment and Plan (1) Type 2 diabetes mellitus Current Visit: Yes Status: Chronic (2) Anemia Current Visit: Yes Status: Chronic (3) Acute and chronic respiratory failure with hypoxia Current Visit: Yes Status: Chronic (4) COPD exacerbation Current Visit: Yes Status: Resolved (5) Sepsis Current Visit: Yes Status: Resolved (6) History of dementia Current Visit: Yes Status: Chronic (7) Gram-negative bacteremia Current Visit: Yes Status: Acute (8) Hospice care patient Current Visit: Yes Status: Chronic - Time Spent with Patient Total time spent is greater than 50% in coordination of care (as documented) at patient's floor/unit and/or counseling patient: Internal Medicine: Result - Labs CBC & Chem 7: 08/17/18 04:42 08/17/18 04:42 Labs: Short CBC 08/17/18 Range/Units 04:42 WBC 7.0 (4.3-11.1) K/mcL Hgb 7.6 L (12.9-16.9) g/dL Hct 26.2 L (37.5-50.1) % Plt Count 142 (140-400) K/mcL Neutrophils # 4.6 (1.6-8.9) K/mcL BMP 08/17/18 04:42 Sodium 139 Potassium 5.4 H Chloride 102 Carbon Dioxide 31 H BUN 46 H Creatinine 1.66 H Glucose 245 H Calcium 8.5 L - ABG Interpretation ABG results: ABG ABG pH 7.33 pH Units (7.32-7.45) 08/15/18 10:48 ABG pCO2 70 mmHg (35-45) H* 08/15/18 10:48 ABG pO2 238 mmHg (85-104) H 08/15/18 10:48 ABG O2 Saturation 100 % (95-98) H 08/15/18 10:48 PT/INR, D-dimer PT 11.1 Seconds (9.4-12.1) 08/15/18 10:12 - Attending Attestation I examined this patient and my medical decision-making was reviewed with the Resident Physician. I agree with the documented findings, disposition and treatment plan as described except to the extent set forth below. Long discussion with him today with his significant other, she has convinced him to stay, we discussed the importance of adequate treatment for pseudomonas sepsis, he is not a true hospice patient and in the clear sense, this is more of a home health desire in need. Therefore aggressive treatment is indicated, hopefully will have IV antibiotics set up and he can go tomorrow. <Yusuf Ruiz - Last Filed: 08/17/18 16:22> (3) Sepsis Qualifiers: Sepsis type: sepsis due to unspecified organism Qualified Code(s): A41.9 - Sepsis, unspecified organism (5) Type 2 diabetes mellitus Qualifiers: Diabetes mellitus senior care insulin use: without senior care use Diabetes mellitus complication status: with kidney complications Diabetes mellitus complication detail: with chronic kidney disease Chronic kidney disease stage: stage 3 (moderate) Qualified Code(s): E11.22 - Type 2 diabetes mellitus with diabetic chronic kidney disease; N18.3 - Chronic kidney disease, stage 3 (moderate) (7) Anemia Qualifiers: Anemia type: unspecified type Qualified Code(s): D64.9 - Anemia, unspecified <Blaine Rogel - Last Filed: 08/17/18 16:39> (1) Type 2 diabetes mellitus Qualifiers: Diabetes mellitus long chain beamer insulin use: without long chain beamer use Diabetes mellitus complication status: with kidney complications Diabetes mellitus complication detail: with chronic kidney disease Chronic kidney disease stage: stage 3 (moderate) Qualified Code(s): E11.22 - Type 2 diabetes mellitus with diabetic chronic kidney disease; N18.3 - Chronic kidney disease, stage 3 (moderate) (2) Anemia Qualifiers: Anemia type: unspecified type Qualified Code(s): D64.9 - Anemia, unspecified (5) Sepsis Qualifiers: Sepsis type: sepsis due to unspecified organism Qualified Code(s): A41.9 - Sepsis, unspecified organism
[2018-08-17] MEDS ORDERED: Insulin DETEMIR 100 UNIT/ML X5UNITS SQ SCH (21:00)
[2018-08-17] MEDS: Loratadine 10 MG TABLET PO SCH (21:51)
[2018-08-18] MEDS: *HR* OxyCODONE/APAP 5/325 TABLET PO SCH ×4 (01:06→12:05)
[2018-08-18] MEDS: *HR* Heparin 5,000 UNIT/ML VIAL SQ SCH ×2 (01:06→08:35)
[2018-08-18] MEDS: Piperacillin/Tazobactam 3.375 GM in 0.9 % Sodium Chloride Mini Bag 100 ML IVPB SCH (01:07)
[2018-08-18] MEDS: MethylPREDNISolone 40 MG/ML VIAL IVP SCH ×2 (01:07→08:35)
[2018-08-18 03:19] LABS: Nucleated Red Blood Cells 0.3 /100 WBC (0)
[2018-08-18 03:21] LABS: Hematocrit 27.4 % (37.5-50.1); Hemoglobin 7.9 g/dL (12.9-16.9); Immature Platelets 6.4 % (1.1-6.1); Mean Corpuscular HGB Conc 28.8 g/dL (31.6-35.5); Mean Corpuscular Hemoglobin 31.1 pg (28.0-33.3); Mean Corpuscular Volume 107.9 fL (83.0-100.0); Mean Platelet Volume 11.1 fL (9.4-12.4); Platelet Count 128 K/mcL (140-400); Red Blood Count 2.54 M/mcL (4.19-5.50); Red Cell Distribution Width 16.6 % (11.5-14.5)
[2018-08-18 03:39] LABS: Calcium 8.4 mg/dL (8.6-10.3); Potassium 5.5 mEq/L (3.5-5.1)
[2018-08-18] MEDS: Ipratropium/Albuterol Neb 3 ML IH SCH ×3 (03:47→11:32)
[2018-08-18 04:36] LABS: Hypochromasia Present (Not Present); Lymphocytes # 2.1 K/mcL (0.6-4.6); Neutrophils # 3.1 K/mcL (1.6-8.9); Platelet Estimate Slight Decrease (Normal)
[2018-08-18] MEDS: Budesonide/Formoterol 160/4.5 1 PUFF INH IH SCH (07:23)
[2018-08-18] MEDS: Sennosides 8.6 MG TABLET PO SCH (08:34)
[2018-08-18] MEDS: Aspirin Enteric Coated 81 MG Tablet PO SCH (08:34)
[2018-08-18] MEDS: Furosemide 20 MG TABLET PO SCH (08:34)
[2018-08-18] MEDS: Finasteride 5 MG TABLET PO SCH (08:34)
[2018-08-18] MEDS: Levofloxacin 750 MG/150 ML 750 MG/150 ML BAG IVPB SCH (08:35)
[2018-08-18] MEDS ORDERED: levoFLOXacin 750 MG TABLET PO SCH (09:00)
--- NOTE | 2018-08-18 09:32 | Discharge Summary ---
<Yusuf Ruiz Doyle - Last Filed: 08/18/18 11:50> - NOTES TO OUTPATIENT PROVIDER Notes to Outpatient Provider: Mr Leiva was admitted for shortness of breath secondary to COPD exacerbation. He responded well to steroids, bronchodilators, and BiPAP. While ruling out pneumonia he was found to have P. aeruginosa b acteremia, of unknown source. Patient was started on IV Levaquin and IV Zosyn, with 3 days treatment. Infectious Disease was consulted who agreed with antibiotics. His culture sensitivities resulted and were found to be sensitive to Levaquin, so he recieved a dose and was discharged on PO Levaquin for 10 more days in stable condition. Orders not resulted at time of discharge: Pending orders 08/16/18 09:15 Culture,Blood [BC] Routine Date of Encounter: 08/18/18 Time of Encounter: 09:29 - Discharge Diagnosis (1) Acute and chronic respiratory failure with hypoxia Priority: Primary Status: Chronic Assessment and Plan: Patient presented with shortness of breath and hypoxia Believed to be secondary to COPD exacerbation Responded well to BiPAP, O2, IV steroids, Duonebs Patient currently saturating/ventilating appropriately on home dose O2 Plan Stable for discharge on oral steroid taper and home O2, BiPAP, bronchodilators (2) COPD exacerbation Priority: Secondary Status: Resolved Assessment and Plan: Unknown cause of exacerbation Plan as seen above (3) Sepsis Priority: Secondary Status: Resolved Assessment and Plan: Presented with fever, tachycardia, hypoxia Blood cultures demonstrated P. aeruginosa bacteremia, source unknown Patient had 3 days IV Zosyn/Levaquin, now on day 1 PO Levaquin Appreciate Infectious Disease collaboration and recommendations Patient currently stable, labs and vitals no longer indicating sepsis Plan Discharge on course of PO Levaquin to complete 14 days total antibiotics Qualifiers: Sepsis type: sepsis due to unspecified organism Qualified Code(s): A41.9 - Sepsis, unspecified organism (4) Gram-negative bacteremia Priority: Secondary Status: Acute Assessment and Plan: Source unknown, plan as seen above (5) Type 2 diabetes mellitus Priority: Secondary Status: Chronic Assessment and Plan: Chronic DM2 Not on home insulin sugars elevated during hospital course, A1c 8.2 medium dose SSI and 10 units levemir HS Will discharge on home antihyperglycemics Medications may necessitate adjustment in outpatient setting Qualifiers: Diabetes mellitus rat exterminator insulin use: without fdc use Diabetes mellitus complication status: with kidney complications Diabetes mellitus complication detail: with chronic kidney disease Chronic kidney disease stage: stage 3 (moderate) Qualified Code(s): E11.22 - Type 2 diabetes mellitus with diabetic chronic kidney disease; N18.3 - Chronic kidney disease, stage 3 (moderate) (6) History of dementia Priority: Secondary Status: Chronic Assessment and Plan: History of dementia Baseline unknown Patient A&O3 here (7) Anemia Priority: Secondary Status: Chronic Assessment and Plan: Patient macrocytic anemic on presentation, differential includes chronic disease vs nutritional, no signs of acute bleeding Continues to be anemic, macrocytic, no evidence of bleeding, B12 and Folate ordered, iron panel ordered B12 and Folate high indicating supplementation, Iron and %Saturation normal, transferrin low also possibly indicating iron supplementation This is likely a chronic iron deficiency anemia, with iron supplementation outpatient Hgb stable for now, will discharge on home meds with outpatient follow up Qualifiers: Anemia type: unspecified type Qualified Code(s): D64.9 - Anemia, unspecified (8) Hospice care patient Priority: Secondary Status: Chronic Assessment and Plan: Patient is home hospice for COPD Can't recall prognosis Confirmed DNRCC Confirmed he wants treatment here Will discharge back to home hospice Hospital course: Mr. Leiva is a 73 year old male from home hospice who has a history of COPD on 3 L nasal cannula at home, dementia and diabetes who presented to the emergency department fr worsening shortness of breath and mental status. CT Head and CXR were non-contributory. Labs and vitals were significant for sepsis, of unknown source. Patient was admitted for Sepsis and Acute on Chronic Respiratory Failure secondary to COPD exacerbation. Treatment was started with steroids, bronchodilators, BiPAP, and empiric Zosyn and Levaquin. The patient responded very well to breathing treatments. Blood cultures revealed P. aeruginosa bacteremia, still of unknown source. Infectious Disease was consulted who recommended continuing Levaquin and Zosyn until culture sensitivities finalized. Despite bacteremia the patient quickly responded to supportive care and was no longer septic. Eventually the cultures revealed sensitivity to Levaquin. After 3 days of IV Levaquin and Zosyn the patient was given 1 dose PO Levaquin and was discharged in stable condition with a continued 10 day course of PO Levaquin for a total of 14 days antibiotics. Discharge discussed with: patient, universal branch consultant - Time Spent with Patient Total time spent providing and/or coordinating discharge services: - Discharge Medications Prescriptions: RX: levoFLOXacin [Levaquin] 750 mg PO Q48H 10 Days #5 tablet RX: predniSONE [PredniSONE] See Taper PO DAILY 30 Days #48 tablet Home Medications: RX: Epoetin Nathanael [Epogen] 6,000 unit IJ SA 09/23/16 [History] RX: Finasteride [Proscar] 5 mg PO DAILY 09/23/16 [History] RX: Fluticasone Propionate Nasal [Flonase] 1 spray NS DAILY 09/23/16 [History] RX: Trospium Chloride 20 mg PO BID 09/23/16 [History] RX: Ipratropium/Albuterol Neb [Duoneb] 3 ml IH Q4HR #0 09/29/16 [Rx] RX: Acetaminophen [Tylenol 650mg SUPP] 650 mg RC Q4HR PRN 08/15/18 [History] RX: Aspirin [Adult Aspirin Regimen] 81 mg PO DAILY 08/15/18 [History] RX: Bisacodyl [Dulcolax] 10 mg RC DAILY PRN 08/15/18 [History] RX: Cetirizine HCl [24Hour Allergy] 5 mg PO DAILY 08/15/18 [History] RX: DULoxetine [Cymbalta] 60 mg PO DAILY 08/15/18 [History] RX: Furosemide [Lasix] 20 mg PO DAILY 08/15/18 [History] RX: Hyoscyamine SL [Levsin Sl] 0.125 - 0.25 mg PO Q2H PRN 08/15/18 [History] RX: LORazepam [Ativan] 0.5 mg PO Q4H PRN 08/15/18 [History] RX: Morphine Oral CONC [Roxanol] 0.25 ml PO Q4H PRN 08/15/18 [History] RX: Olodaterol HCl [Striverdi Respimat] 2 puff IH DAILY 08/15/18 [History] RX: Omeprazole 20 mg PO DAILY 08/15/18 [History] RX: OxyCODONE/APAP 5/325 [Percocet 5/325 MG] 1 each PO Q4HR PRN 08/15/18 [History] RX: Oxygen 2 - 10 l IH DAILY 08/15/18 [History] RX: Polyethylene Glycol 3350 [MiraLAX] 17 gm PO DAILY 08/15/18 [History] RX: Promethazine [Phenergan] 25 mg PO Q6HR PRN 08/15/18 [History] RX: Promethazine [Phenergan] 25 mg RC Q6HR PRN 08/15/18 [History] RX: Roflumilast [Daliresp] 500 mcg PO DAILY 08/15/18 [History] RX: Saxagliptin HCl [Onglyza] 2.5 mg PO DAILY 08/15/18 [History] RX: Sennosides [Senna] 2 tab PO BID 08/15/18 [History] RX: Sertraline [Zoloft] 50 mg PO DAILY 08/15/18 [History] RX: Tamsulosin HCl [Flomax] 0.4 mg PO DAILY 08/15/18 [History] RX: levoFLOXacin [Levaquin] 750 mg PO Q48H 10 Days #5 tablet 08/18/18 [Rx] RX: predniSONE [PredniSONE] See Taper PO DAILY 30 Days #48 tablet 08/18/18 [Rx] Allergies/Adverse Reactions: Allergy/AdvReac Type Severity Reaction Status Date / Time gabapentin Allergy See Verified 09/23/16 15:04 Comments mushroom Allergy See Verified 09/23/16 15:04 Comments pregabalin Allergy See Verified 09/23/16 15:04 Comments Date of admission: 08/15/18 14:23 Primary care physician: PCP [facility] Consults: 08/16/18 09:43 Consult to Infectious Diseases [CONS] Routine Consulting Provider: Infectious Disease Madhuri Reason for Consult: Patient presented for SOB, COPD exacerbation, found to have pseudomonas aeruginosa bacteremia, on IV Levaquin/Zosyn, pneumonia unlikely, urine possible source, patient has condom catheter, 1 day dysuria Time Notified: 09:45 Call Completed: No Discharging clinician: Yusuf Ruiz Anticipated date of discharge: 08/18/18 - Constitutional Vitals: Temp Pulse Resp BP Pulse Ox 97.6 F 75 20 114/71 99 08/18/18 06:12 08/18/18 06:12 08/18/18 07:24 08/18/18 06:12 08/18/18 08:23 General appearance: Present: A&O X 3, pleasant Exam: CONSTITUTIONAL: Patient appears as an age appropriate male well developed, in no acute distress. EYES Clear sclerae, bilateral pupils are equal, reactive to light and accommodation. Extraocular movements are intact RESPIRATORY: No accessory muscle use, no wheezing, no crackles/rales. CARDIOVASCULAR: Regular heart rate, normal S1 and S2, no murmurs GASTROINTESTINAL: bowel sounds present, soft, no tenderness. No hepatosplenomegaly. MUSCULOSKELETAL: Joints in normal range of motion, no clubbing, no edema, no cyanosis. NEUROLOGIC: no focal neurological deficit. Normal light touch sensation to upper and lower extremity PSYCHIATRIC: Oriented x3, with good insight, mood is euthymic. No hallucinations or delusions. SKIN: Skin warm and dry, no rashes, no open wound. - Patient Status Disposition: Hospice - Home Condition: Fair Functional capacity at discharge: uses cane/walker Overall status at discharge: patient is progressing back to baseline - Discharge Instructions Instructions: Viral Pneumonia (DC), Chronic Obstructive Pulmonary Disease (DC), Sepsis (DC) [facility]: [facility] Care Provider[facility] - 08/21/18 2:15 pm Forms: ED Satisfaction Letter - Diet and Activity Activity: resume usual activities as tolerated Diet: advance to your usual diet <Blaine Rogel - Last Filed: 08/18/18 15:35> Orders not resulted at time of discharge: Pending orders 08/16/18 09:15 Culture,Blood [] Routine Date of Encounter: 08/18/18 - Discharge Diagnosis (1) Type 2 diabetes mellitus Status: Chronic Qualifiers: Diabetes mellitus rat exterminator insulin use: without fdc use Diabetes mellitus complication status: with kidney complications Diabetes mellitus complication detail: with chronic kidney disease Chronic kidney disease stage: stage 3 (moderate) Qualified Code(s): E11.22 - Type 2 diabetes mellitus with diabetic chronic kidney disease; N18.3 - Chronic kidney disease, stage 3 (moderate) (2) Anemia Status: Chronic Qualifiers: Anemia type: unspecified type Qualified Code(s): D64.9 - Anemia, unspecified (3) Acute and chronic respiratory failure with hypoxia Status: Chronic (4) COPD exacerbation Status: Resolved (5) Sepsis Status: Resolved Qualifiers: Sepsis type: sepsis due to unspecified organism Qualified Code(s): A41.9 - Sepsis, unspecified organism (6) History of dementia Status: Chronic (7) Gram-negative bacteremia Status: Acute (8) Hospice care patient Status: Chronic Hospital course: Mr. Leiva is a 73 year old male - Time Spent with Patient Total time spent providing and/or coordinating discharge services: Date of admission: 08/15/18 14:23 Primary care physician: PCP [facility] Consults: 08/16/18 09:43 Consult to Infectious Diseases [CONS] Routine Consulting Provider: Infectious Disease [place] Reason for Consult: Patient presented for SOB, COPD exacerbation, found to have pseudomonas aeruginosa bacteremia, on IV Levaquin/Zosyn, pneumonia unlikely, urine possible source, patient has condom catheter, 1 day dysuria Time Notified: 09:45 Call Completed: No - Constitutional Vitals: Temp Pulse Resp BP Pulse Ox 97.4 F L 91 20 107/68 95 08/18/18 11:17 08/18/18 11:17 08/18/18 11:32 08/18/18 11:17 08/18/18 11:32 - Attending Attestation I examined this patient and my medical decision-making was reviewed with the Resident Physician. I agree with the documented findings, disposition and treatment plan as described except to the extent set forth below.
[2018-08-18] MEDS: Insulin LISPRO 300 UNITS/3 ML VIAL SQ SCH ×2 (09:39→12:07)
[2018-08-18] MEDS: Fluticasone Propionate Nasal 50 MCG/SPRAY BOTTLE NS SCH (09:42)
--- NOTE | 2018-08-18 10:17 | Infectious Disease Progress No ---
Date of Encounter: 08/18/18 Time of Encounter: 09:15 - Assessment and Plan (1) Sepsis Status: Resolved The patient had 3 sepsis criteria on admission. Likely secondary to gram-negative bacteremia. Improved. The patient has been afebrile overnight. His white blood cell count is normal. He does not have tachycardia at this time. Blood cultures drawn 08/15/18 are +2 out of 2 sets for Pseudomonas. Repeat blood cultures from 08/16/18 are NGTD2 sets. Relations: Await repeat blood cultures. Continue Levaquin 750 mg IV every 48 hours. Discontinue Zosyn. Duration of treatment depends on the clinical picture, but likely a total of 14 days. Can transition to PO Levaquin 750 Q48H when ready for discharge. Advised the patient that the source of his bacteremia remains unclear and that should he start to feel poorly again, he should come back to the hospital for further evaluation and workup. He verbalizes understanding and is in agreement with the plan of care. Monitor renal function and dose adjust antibiotics. Qualifiers: Sepsis type: sepsis due to unspecified organism Qualified Code(s): A41.9 - Sepsis, unspecified organism (2) Gram-negative bacteremia Status: Acute Other organism: Pseudomonas aeruginosa. Source: Unclear. Clinically improved. Blood cultures drawn 08/15/18 are +2 out of 2 sets for Pseudomonas per the PCR. Repeat blood cultures drawn 08/16/18 are pending 2 sets. Currently on IV Levaquin and Zosyn. (3) Altered mental status Status: Acute Likely secondary to sepsis. Appears improved. Qualifiers: Altered mental status type: unspecified Qualified Code(s): R41.82 - Altered mental status, unspecified (4) Dementia Status: Chronic Qualifiers: Dementia type: unspecified type Dementia behavioral disturbance: without behavioral disturbance Qualified Code(s): F03.90 - Unspecified dementia without behavioral disturbance (5) Hospice care patient Status: Chronic Secondary to advanced COPD. (6) Moderate to severe pulmonary hypertension Status: Acute (7) COPD (chronic obstructive pulmonary disease) Status: Chronic Qualifiers: COPD type: emphysema Emphysema type: panlobular Qualified Code(s): J43.1 - Panlobular emphysema - Subjective Interval history: Patient seen and examined. No acute events noted overnight. The patient states that overall he feels well. He denies any fevers or chills or rigors. Denies chest pain. He reports chronic shortness of breath and cough that are at baseline. He denies nausea, vomiting, diarrhea, or constipation. He denies abdominal pain or urinary complaints. He denies any oral thrush or new skin lesions. The patient remains adamant that he is going home today. Infect Dis PN-Objective Data - Labs CBC & Chem 7: 08/18/18 03:02 08/18/18 03:02 Labs: Laboratory Results - last 24 hr 08/17/18 08/17/18 08/17/18 07:22 11:58 15:09 WBC RBC Hgb Hct MCV MCH MCHC RDW Plt Count MPV Seg Neutrophils % Lymphocytes % Myelocytes % Neutrophils # Lymphocytes # Nucleated RBCs/100 WBC Platelet Estimate Immature Plt Fraction Hypochromasia Sodium Potassium Chloride Carbon Dioxide BUN Creatinine Est GFR ( Amer) Est GFR (Non-Af Amer) BUN/Creatinine Ratio Glucose POC Glucose 260 H 185 H Calculated Osmolality Calcium Iron % Saturation Transferrin Folate 20.4 H 08/17/18 08/18/18 08/18/18 15:09 03:02 03:02 WBC 5.9 RBC 2.54 L Hgb 7.9 L Hct 27.4 L MCV 107.9 H MCH 31.1 MCHC 28.8 L RDW 16.6 H Plt Count 128 L MPV 11.1 Seg Neutrophils % 52.0 Lymphocytes % 36.0 Myelocytes % 12.0 H Neutrophils # 3.1 Lymphocytes # 2.1 Nucleated RBCs/100 WBC 0.3 H Platelet Estimate Slight Decrease L Immature Plt Fraction 6.4 H Hypochromasia Present A Sodium 140 Potassium 5.5 H Chloride 103 Carbon Dioxide 30 H BUN 57 H Creatinine 1.81 H Est GFR ( Amer) 45 L Est GFR (Non-Af Amer) 37 L BUN/Creatinine Ratio 31 H Glucose 170 H POC Glucose Calculated Osmolality 310 H Calcium 8.4 L Iron 110 % Saturation 49 Transferrin 162 L Folate Cultures: Cultures 08/15/18 10:12 Blood Culture - Final Peripheral Venipuncture Pseudomonas aeruginosa 08/15/18 10:37 Blood Culture - Final Peripheral Venipuncture Pseudomonas aeruginosa 08/16/18 09:15 Blood Culture - Preliminary Peripheral Venipuncture Culture is incubating and being continuously monitored for growth. Final report to follow. 08/16/18 09:20 Blood Culture - Preliminary Peripheral Venipuncture Culture is incubating and being continuously monitored for growth. Final report to follow. 08/15/18 14:40 Influenza Types A,B Antigen - Final Nasopharyngeal Serology 08/15/18 08/15/18 Range/Units 11:32 10:12 Urine Color Yellow (Yellow) Urine Clarity Clear (Clear) Urine pH 7.0 (5.0-8.0) pH Units Ur Specific [place] 1.017 (1.010-1.025) Urine Protein 30 H (Neg-Trace) mg/dL Urine Glucose (UA) 500 H (Normal) mg/dL Urine Ketones Negative (Negative) mg/dL Urine Blood Negative (Negative) Urine Nitrite Negative (Negative) Urine Bilirubin Negative (Negative) Urine Urobilinogen Normal (Normal) mg/dL Ur Leukocyte Esterase Negative (Negative) Urine Microscopic RBC 0-3 (0-3) per hpf Urine Microscopic WBC 0-3 (0-3) per hpf Ur Squamous Epith Cells Moderate H (None-Few) per lpf Urine Bacteria Many H (None-Few) per hpf Hyaline Casts None Seen (None-Few) per lpf Ur Culture Indicated? NO (NO) A. baumannii (PCR) Not Detected (Not Detect) Alba albicans (PCR) Not Detected (Not Detect) C. glabrata (PCR) Not Detected (Not Detect) C. krusei (PCR) Not Detected (Not Detect) C. parapsilosis (PCR) Not Detected (Not Detect) C. tropicalis (PCR) Not Detected (Not Detect) Enterobacteriac sp PCR Not Detected (Not Detect) E. cloacae complex PCR Not Detected (Not Detect) Enterococcus sp PCR Not Detected (Not Detect) E. coli (PCR) Not Detected (Not Detect) H. influenzae (PCR) Not Detected (Not Detect) Klebsiella oxytoca PCR Not Detected (Not Detect) Klebsiella pneumoniae Not Detected (Not Detect) List. monocytogenes PCR Not Detected (Not Detect) N. meningitidis (PCR) Not Detected (Not Detect) Proteus species (PCR) Not Detected (Not Detect) Serratia marcescens PCR Not Detected (Not Detect) Staphylococcus sp PCR Not Detected (Not Detect) Staph aureus (PCR) Not Detected (Not Detect) mecA-Methicil Res Gene Not Detected (Not Detect) Streptococcus sp PCR Not Detected (Not Detect) Group A Strep DNA Not Detected (Not Detect) Group B Strep (PCR) Not Detected (Not Detect) Strep pneumoniae (PCR) Not Detected (Not Detect) P. aeruginosa (PCR) DETECTED A (Not Detect) Ha/B-Vanco Res Genes Not Detected (Not Detect) KPC (blaKPC) Detect PCR Not Detected (Not Detect) Exam - Constitutional Vitals: Temp Pulse Resp BP Pulse Ox 97.6 F 75 20 114/71 99 08/18/18 06:12 08/18/18 06:12 08/18/18 07:24 08/18/18 06:12 08/18/18 08:23 General appearance: average body habitus, cooperative, no acute distress - Head Head exam: Present: atraumatic, normal inspection, normocephalic - Eye Eye exam: Present: EOMI, normal appearance, PERRL Pupils: Present: normal accommodation - ENT ENT exam: Present: mucous membranes moist - Neck Neck exam: Present: normal inspection - Respiratory Respiratory exam: Present: decreased breath sounds (throughout). Absent: rales, rhonchi, wheezes - Cardiovascular Cardiovascular exam: Present: RRR, +S1, +S2 - GI/Abdominal GI/Abdominal exam: Present: normal bowel sounds, soft. Absent: distended, tenderness - Extremities Exam Extremities exam: Present: normal inspection. Absent: joint swelling, pedal edema, tenderness - Neurological Exam Neurological exam: Present: alert, oriented X3, no focal deficits - Psychiatric Psychiatric exam: Present: normal affect, normal mood - Skin Skin exam: Present: dry, intact, normal color, warm Consult Discharge Plan - Plan Instructions: Viral Pneumonia (DC), Chronic Obstructive Pulmonary Disease (DC), Sepsis (DC) [facility]: [facility]Primary Care Provider[facility] - 08/21/18 2:15 pm Prescriptions: RX: levoFLOXacin [Levaquin] 750 mg PO Q48H 10 Days #5 tablet RX: predniSONE [PredniSONE] See Taper PO DAILY 30 Days #48 tablet
--- NOTE | 2018-08-18 10:44 | Physician Discharge Referral ---
<Yusuf Ruiz - Last Filed: 08/18/18 11:59> Home Health/Hosp Referral Info Transfer to: Hospice Attending Provider: [place] Provider in Charge Post Discharge: PCP - Diagnosis (1) Acute and chronic respiratory failure with hypoxia Priority: Primary Status: Chronic (2) COPD exacerbation Priority: Secondary Status: Resolved (3) Sepsis Priority: Secondary Status: Resolved (4) Gram-negative bacteremia Priority: Secondary Status: Acute (5) Type 2 diabetes mellitus Priority: Secondary Status: Chronic (6) History of dementia Priority: Secondary Status: Chronic (7) Anemia Priority: Secondary Status: Chronic (8) Hospice care patient Priority: Secondary Status: Chronic - Respiratory Orders Smoking Cessation: Smoking cessation has been advised. For more information, call the [place] Tobacco Quit Line at 6-803-NODT-NOW. - Transfer Medications Prescriptions: RX: levoFLOXacin [Levaquin] 750 mg PO Q48H 10 Days #5 tablet RX: predniSONE [PredniSONE] See Taper PO DAILY 30 Days #48 tablet Home Medications: RX: Epoetin Nathanael [Epogen] 6,000 unit IJ 09/23/16 [History] RX: Finasteride [Proscar] 5 mg PO DAILY 09/23/16 [History] RX: Fluticasone Propionate Nasal [Flonase] 1 spray NS DAILY 09/23/16 [History] RX: Trospium Chloride 20 mg PO BID 09/23/16 [History] RX: Ipratropium/Albuterol Neb [Duoneb] 3 ml IH Q4HR #0 09/29/16 [Rx] RX: Acetaminophen [Tylenol 650mg SUPP] 650 mg RC Q4HR PRN 08/15/18 [History] RX: Aspirin [Adult Aspirin Regimen] 81 mg PO DAILY 08/15/18 [History] RX: Bisacodyl [Dulcolax] 10 mg RC DAILY PRN 08/15/18 [History] RX: Cetirizine HCl [24Hour Allergy] 5 mg PO DAILY 08/15/18 [History] RX: DULoxetine [Cymbalta] 60 mg PO DAILY 08/15/18 [History] RX: Furosemide [Lasix] 20 mg PO DAILY 08/15/18 [History] RX: Hyoscyamine SL [Levsin Sl] 0.125 - 0.25 mg PO Q2H PRN 08/15/18 [History] RX: LORazepam [Ativan] 0.5 mg PO Q4H PRN 08/15/18 [History] RX: Morphine Oral CONC [Roxanol] 0.25 ml PO Q4H PRN 08/15/18 [History] RX: Olodaterol HCl [Striverdi Respimat] 2 puff IH DAILY 08/15/18 [History] RX: Omeprazole 20 mg PO DAILY 08/15/18 [History] RX: OxyCODONE/APAP 5/325 [Percocet 5/325 MG] 1 each PO Q4HR PRN 08/15/18 [History] RX: Oxygen 2 - 10 l IH DAILY 08/15/18 [History] RX: Polyethylene Glycol 3350 [MiraLAX] 17 gm PO DAILY 08/15/18 [History] RX: Promethazine [Phenergan] 25 mg PO Q6HR PRN 08/15/18 [History] RX: Promethazine [Phenergan] 25 mg RC Q6HR PRN 08/15/18 [History] RX: Roflumilast [Daliresp] 500 mcg PO DAILY 08/15/18 [History] RX: Saxagliptin HCl [Onglyza] 2.5 mg PO DAILY 08/15/18 [History] RX: Sennosides [Senna] 2 tab PO BID 08/15/18 [History] RX: Sertraline [Zoloft] 50 mg PO DAILY 08/15/18 [History] RX: Tamsulosin HCl [Flomax] 0.4 mg PO DAILY 08/15/18 [History] RX: levoFLOXacin [Levaquin] 750 mg PO Q48H 10 Days #5 tablet 08/18/18 [Rx] RX: predniSONE [PredniSONE] See Taper PO DAILY 30 Days #48 tablet 08/18/18 [Rx] Allergies/Adverse Reactions: Allergy/AdvReac Type Severity Reaction Status Date / Time gabapentin Allergy See Verified 09/23/16 15:04 Comments mushroom Allergy See Verified 09/23/16 15:04 Comments pregabalin Allergy See Verified 09/23/16 15:04 Comments Certification: Further, I certify that my clinical findings support that this patient is homebound (i.e. absences from home require considerable and taxing effort and are for medical reasons or shinto services or infrequently or short duration when for other reasons) because: Homebound Reason: Patient requires assistance of a person or device to safely leave home, Severity of cardiac or pulmonary status limits activity tolerance Attestation: My signature below is to certify that this patient is under my care and that I, or nurse practitioner, or a physician's social human services assistants working with me, has a [id number] encounter with this patient. Patients severe COPD requiring home O2 use requires home assistance. <Blaine Rogel - Last Filed: 08/21/18 08:59> - Diagnosis (1) Type 2 diabetes mellitus Status: Chronic (2) Anemia Status: Chronic (3) Acute and chronic respiratory failure with hypoxia Status: Chronic (4) COPD exacerbation Status: Resolved (5) Sepsis Status: Resolved (6) History of dementia Status: Chronic (7) Gram-negative bacteremia Status: Acute (8) Hospice care patient Status: Chronic - Respiratory Orders Smoking Cessation: Smoking cessation has been advised. For more information, call the [employer] Tobacco Quit Line at 5-258-NGQQNOW. Certification: Further, I certify that my clinical findings support that this patient is homebound (i.e. absences from home require considerable and taxing effort and are for medical reasons or shinto services or infrequently or short duration when for other reasons) because: Attestation: My signature below is to certify that this patient is under my care and that I, or nurse practitioner, or a physician's social human services assistants working with me, has a [id number] encounter with this patient. He will be discharged today with by mouth antibiotics. Stable and much improved condition. Given the paperwork, the visit in the time, this is a greater than 30 minute discharge. - Attending Attestation I examined this patient and my medical decision-making was reviewed with the Resident Physician. I agree with the documented findings, disposition and treatment plan as described except to the extent set forth below.
[2018-08-18 11:19] VITALS: BP 107/68
== END 2018-08-18 13:39 | disposition hospice, home (50) | DRG 871 ==
LOC: EMEROOARM 09:50 → 2SOUTHHOLD 09:50 → 2ANU 08-18 06:01
PROVIDERS: ADMIT Hospitalist; ATTEND Hospitalist